=== PATIENT | female | born 1950 | race African-American/Black ===

== ENCOUNTER 2016-04-27 02:12 | Observation (INO) | payer OTHER ==
[2016-04-27 02:41] VITALS: BMI 32.2
--- NOTE | 2016-04-27 03:55 | PDOC ---
History of Present Illness - General History Source: Patient Exam Limitations: No Limitations - History of Present Illness Initial Comments: 04/27/16 04:33 The patient is a 65 year old female with significant past medical history of hypertension, hyperlipidemia, brain aneurysm that was clipped and resulted in cerebral hemorrhage (07/2015), CVA ( no residual weakness), pre diabetes, CVA ( no residual weakness, and glaucoma R- eye who presents to the ED with 1 day of nausea, vomiting, and headache. Patient reports she had a brain aneurysm that was clipped and resulted in cerebral hemorrhage (07/2015). Since then she has had headaches. However, she comes in today for persistent nausea and vomiting. She denies abdominal pain and diarrhea. The patient denies fever, chills, cough, SOB, chest pain, and palpitations. The patient denies dysuria, hematuria, urgency, and frequency. Allergies: NKDA Social History: No alcohol, tobacco, or drug use reported. Past Surgical History: L-shoulder reconstruction x3, Knee Replacement, Appendectomy, Hysterectomy, Cataract removal PCP: None <Ellie Galo - Last Filed: 04/27/16 06:26> - General History Source: Patient <LeónStephan rodriguez - Last Filed: 04/27/16 19:35> - General Chief Complaint: Vomiting/Diarrhea Stated Complaint: VOMITING Time Seen by Provider: 04/27/16 03:53 Past History <Ellie Galo - Last Filed: 04/27/16 06:26> - Past Medical History Cardiac Disorders: Yes (mitral valve regurgitation) CVA: Yes (NO RESIDUAL WEAKNESS.) Diabetes: Yes (pre diabetic) HTN: Yes Hypercholesterolemia: Yes Suicide Attempt (Hx): No - Surgical History Abdominal Surgery: Yes (exploratory lap?) Appendectomy: Yes Neurologic Surgery: Yes (brain annurysm) Orthopedic Surgery: Yes (L. Shoulder, R. Knee) - Immunization History Immunization Up to Date: Yes - Psycho/Social/Smoking Cessation Hx Anxiety: No Suicidal Ideation: No Smoking Status: No Smoking History: Never smoked Have you smoked in the past 12 months: No Number of Cigarettes Smoked Daily: 0 Cigars Per Day: 0 Hx Alcohol Use: No Drug/Substance Use Hx: No Substance Use Type: None Hx Substance Use Treatment: No <Stephan Encarnacion - Last Filed: 04/27/16 19:35> - Past Medical History Allergies/Adverse Reactions: Allergies Allergy/AdvReac Type Severity Reaction Status Date / Time No Known Allergies Allergy Verified 04/27/16 02:44 Home Medications: Ambulatory Orders Metoprolol Succinate [Toprol XL -] 50 mg PO DAILY #7 tab 09/02/12 Amlodipine Besylate 5 mg PO DAILY 03/16/16 Atorvastatin Ca [Lipitor] 10 mg PO HS 03/16/16 Amitriptyline HCl [Elavil -] 2 tab PO HS tablet 04/27/16 Dorzolamide HCl/Timolol Maleat [Cosopt Eye Drops] 10 ml OP BID 04/27/16 Review of Systems - Review of Systems Able to Perform ROS?: Yes Comments:: 04/27/16 04:34 CONSTITUTIONAL: Absent: fever, chills, diaphoresis, generalized weakness, malaise, loss of appetite HEENT: Absent: rhinorrhea, nasal congestion, throat pain, throat swelling, difficulty swallowing, mouth swelling, ear pain, eye pain, visual Changes CARDIOVASCULAR: Absent: chest pain, syncope, palpitations, irregular heart rate, lightheadedness , peripheral edema RESPIRATORY: Absent: cough, shortness of breath, dyspnea with exertion, orthopnea, wheezing, stridor, hemoptysis GASTROINTESTINAL: +nausea, vomiting Absent: abdominal pain, abdominal distension, diarrhea, constipation, melena, hematochezia GENITOURINARY: Absent: dysuria, frequency, urgency, hesitancy, hematuria, flank pain, genital pain MUSCULOSKELETAL: Absent: myalgia, arthralgia, joint swelling SKIN: Absent: rash, itching, pallor NEUROLOGIC: +headache Absent: focal weakness or paresthesias, dizziness, unsteady gait, seizure, mental status changes, bladder or bowel incontinence PSYCHIATRIC: Absent: anxiety, depression, suicidal or homicidal ideation, hallucinations. <Ellie Galo - Last Filed: 04/27/16 06:26> *Physical Exam - Vital Signs Last Vital Signs Temp Pulse Resp BP Pulse Ox 98.1 F 18 122/70 99 04/27/16 02:39 04/27/16 02:39 04/27/16 02:39 04/27/16 02:39 - Physical Exam Comments: 04/27/16 04:34 GENERAL: Well developed, well nourished. Awake and alert. Mild distress. HEENT: Normocephalic, atraumatic. PERRLA, EOMI. No conjunctival pallor. Sclera are non- icteric. Moist mucous membranes. Oropharynx is clear. NECK: Supple. Full ROM. No JVD. Carotid pulses 2+ and symmetric, without bruits. No thyromegaly. No lymphadenopathy. CARDIOVASCULAR: Regular rate and rhythm. No murmurs, rubs, or gallops. Distal pulses are 2+ and symmetric. PULMONARY: No evidence of respiratory distress. Lungs clear to auscultation bilaterally. No wheezing, rales or rhonchi. ABDOMINAL: Soft. Non-tender. Non-distended. No rebound or guarding. No organomegaly. Normoactive bowel sounds. MUSCULOSKELETAL Normal range of motion at all joints. No bony deformities or tenderness. No CVA tenderness. EXTREMITIES: No cyanosis. No clubbing. No edema. No calf tenderness. SKIN: Warm and dry. Normal capillary refill. No rashes. No jaundice. NEUROLOGICAL: Alert, awake, appropriate. Cranial nerves 2-12 intact. No deficits to light touch and temperature in face, upper extremities and lower extremities. No motor deficits in the in face, upper extremities and lower extremities. Normoreflexic in the upper and lower extremities. Normal speech. PSYCHIATRIC: Cooperative. Good eye contact. Appropriate mood and affect. <Ellie Galo - Last Filed: 04/27/16 06:26> - Vital Signs Last Vital Signs Temp Pulse Resp BP Pulse Ox 98.1 F 18 122/70 99 04/27/16 02:39 04/27/16 02:39 04/27/16 02:39 04/27/16 02:39 <Stephan Encarnacion - Last Filed: 04/27/16 19:35> Heart Score/ECG Review - ECG Impressions Comment:: 04/27/16 06:26 NSR @73bpm Normal ECG <Ellie Galo - Last Filed: 04/27/16 06:26> ED Treatment Course - LABORATORY CBC & Chemistry Diagram: 04/27/16 04:52 04/27/16 04:52 - RADIOLOGY Radiograph Interpretation: 04/27/16 05:08 EXAM: CT of the brain without contrast. Reviewed by Imaging translational specialist: There is no intra/extra-axial hemorrhage, vasogenic edema/focal mass effect, CT evidence of acute infarction, interval ventriculomegaly or gross change. Impression: no hemorrhage, gross acute infarct or change. <Ellie Galo - Last Filed: 04/27/16 06:26> - LABORATORY CBC & Chemistry Diagram: 04/27/16 04:52 04/27/16 04:52 <Stephan Encarnacion - Last Filed: 04/27/16 19:35> Medical Decision Making - Medical Decision Making 04/27/16 19:35 Dr. Encarnacion: The scribe's documentation has been prepared under my direction and personally reviewed by me in its entirery. I confirm that the note above accurately reflects all work, treatment, procedures, and medical decision making performed by me. <Stephan Encarnacion - Last Filed: 04/27/16 19:35> *DC/Admit/Observation/Transfer - Attestations Scribe Attestion: 04/27/16 04:34 Documentation prepared by Ellie Galo, acting as medical payment poster for Stephan Encarnacion MD <Ellie Galo - Last Filed: 04/27/16 06:26> - Discharge Dispostion Admit: No <Stephan Encarnacion - Last Filed: 04/27/16 19:35> Diagnosis at time of Disposition: Headache - Discharge Dispostion Condition at time of disposition: Improved
[2016-04-27] MEDS ORDERED: ONDANSETRON 4 MG/2 ML VIAL IVPUSH STA (03:56)
[2016-04-27] MEDS ORDERED: morphine CARPU-JECT 2 MG/1 ML DISP.SYRIN IVPUSH ONE (03:56)
[2016-04-27] MEDS ORDERED: morphine CARPU-JECT 4 MG/1 ML DISP.SYRIN ONE (04:55)
[2016-04-27] MEDS ORDERED: ONDANSETRON 4 MG/2 ML VIAL ONE (04:56)
[2016-04-27 05:14] LABS: BASOPHIL 0.2 % (0-2.0); EOSINOPHIL 0.6 % (0-4.5); MCH 28.4 pg (25.7-33.7); MCHC 31.8 g/dl (32.0-36.0); MEAN CELL VOLUME 89.2 fl (80-96); MEAN PLT VOLUME 10.6 fl (7.5-11.1); NEUTROPHILS 72.4 % (42.8-82.8); PLATELET COUNT 262 K/MM3 (134-434); WHITE BLOOD COUNT 5.4 K/mm3 (4.0-10.0)
[2016-04-27 05:28] LABS: INR 1.02 (0.82-1.09); PROTHROMBIN TIME (PATIENT) 11.2 SEC (9.98-11.88)
[2016-04-27 05:59] LABS: ANION GAP 10 (8-16); CO2 28 mmol/L (21-32); CREATININE 0.7 mg/dL (0.55-1.02); GLUCOSE,RANDOM 95 mg/dL (74-106)
[2016-04-27 06:00] LABS: ALBUMIN 3.8 g/dl (3.4-5.0); BILIRUBIN,TOTAL 0.7 mg/dL (0.2-1.0); CALCIUM 8.8 mg/dL (8.5-10.1); MAGNESIUM 2.6 mg/dL (1.8-2.4); SGOT/AST 31 U/L (15-37); TOT PROT 7.6 g/dl (6.4-8.2)
[2016-04-27 06:01] LABS: ALK PHOS 69 U/L (45-117); SGPT/ALT 26 U/L (12-78); TROPONIN I < 0.02 ng/ml (0.00-0.05)
--- NOTE | 2016-04-27 07:18 | PDOC ---
*Physical Exam - Vital Signs Last Vital Signs Temp Pulse Resp BP Pulse Ox 98.1 F 18 122/70 99 04/27/16 02:39 04/27/16 02:39 04/27/16 02:39 04/27/16 02:39 - Physical Exam Comments: 04/27/16 07:17 Sign-out received from outgoing Emergency Physician Pt interviewed and examined She states that her headache has completely resolved Ancillary studies reviewed I extensively discussed the risks and benefits of lumbar puncture to exclude a diagnosis of intracranial hemorrhage with a false negative CT with the patient. She understands that it is possible to have "a bleeding aneurysm" with "normal CAT scan" She understands that lumbar puncture has a much higher negative predictive value I explained this in lay terminology I answered all of her questions She refuses lumbar puncture She would be amenable to further neuro imaging, including CTA, MRI Will place on observation for further evaluation Will consult neurology Clinical impression: Headache Case discussed in detail with admitting provider including history, physical exam and ancillary studies. Admitting physician has assumed care for the patient, will follow all pending diagnostics and will complete the evaluation and treatment. 04/27/16 07:23 <Joshua Fernandes - Last Filed: 04/27/16 07:24> - Vital Signs Last Vital Signs Temp Pulse Resp BP Pulse Ox 98.2 F 72 16 128/58 98 04/27/16 08:13 04/27/16 08:13 04/27/16 08:13 04/27/16 08:13 04/27/16 08:13 <Raine Ulloa - Last Filed: 06/14/16 13:16> ED Treatment Course - LABORATORY CBC & Chemistry Diagram: 04/27/16 04:52 04/27/16 04:52 - ADDITIONAL ORDERS Additional order review: Laboratory Results 04/27/16 04/27/16 04:52 04:52 INR 1.02 Sodium 142 Potassium 4.6 Chloride 104 Carbon Dioxide 28 Anion Gap 10 BUN 11 Creatinine 0.7 Creat Clearance w eGFR > 60 Random Glucose 95 Calcium 8.8 Magnesium 2.6 H Total Bilirubin 0.7 D AST 31 D ALT 26 Alkaline Phosphatase 69 Creatine Kinase 256 H Troponin I < 0.02 B-Natriuretic Peptide 103.3 Total Protein 7.6 Albumin 3.8 04/27/16 04:52 RBC 4.46 MCV 89.2 MCHC 31.8 L RDW 14.0 MPV 10.6 Neutrophils % 72.4 D Lymphocytes % 17.8 D Monocytes % 9.0 Eosinophils % 0.6 Basophils % 0.2 - Medications Given in the ED: ED Medications Discontinued Medications Generic Name Dose Route Start Last Admin Trade Name Hugo PRN Reason Stop Dose Admin Morphine Sulfate 8 mg 04/27/16 03:56 04/27/16 05:02 Morphine Injection - IVPUSH 04/27/16 03:57 8 mg ONCE ONE Administration Ondansetron HCl 4 mg 04/27/16 03:56 04/27/16 05:02 Zofran Injection IVPUSH 04/27/16 03:57 4 mg ONCE STA Administration <Joshua Fernandes - Last Filed: 04/27/16 07:24> - LABORATORY CBC & Chemistry Diagram: 04/27/16 04:52 04/27/16 04:52 - ADDITIONAL ORDERS Additional order review: 04/27/16 04:52 RBC 4.46 MCV 89.2 MCHC 31.8 L RDW 14.0 MPV 10.6 Neutrophils % 72.4 D Lymphocytes % 17.8 D Monocytes % 9.0 Eosinophils % 0.6 Basophils % 0.2 - Medications Given in the ED: ED Medications Discontinued Medications Generic Name Dose Route Start Last Admin Trade Name Freq PRN Reason Stop Dose Admin Amlodipine Besylate 5 mg 04/27/16 10:00 04/27/16 10:30 Norvasc - PO 5 mg DAILY BERTRAM Administration Sodium Chloride 1,000 mls @ 100 mls/hr 04/27/16 09:45 04/27/16 10:30 1/2 Normal Saline IV 100 mls/hr ASDIR BERTRAM Administration Metoprolol Succinate 50 mg 04/27/16 10:00 04/27/16 10:30 Toprol Xl - PO 50 mg DAILY BERTRAM Administration Morphine Sulfate 8 mg 04/27/16 03:56 04/27/16 05:02 Morphine Injection - IVPUSH 04/27/16 03:57 8 mg ONCE ONE Administration Ondansetron HCl 4 mg 04/27/16 03:56 04/27/16 05:02 Zofran Injection IVPUSH 04/27/16 03:57 4 mg ONCE STA Administration <Raine Ulloa - Last Filed: 06/14/16 13:16> *DC/Admit/Observation/Transfer - Discharge Dispostion Admit: Yes <Joshua Fernandes - Last Filed: 04/27/16 07:24> <Raine Ulloa - Last Filed: 06/14/16 13:16> Diagnosis at time of Disposition: Headache - Discharge Dispostion Disposition: HOME Condition at time of disposition: Improved
[2016-04-27 08:15] VITALS: BP 128/58; PULSE 72; TEMP 98.2
--- NOTE | 2016-04-27 09:38 | HP ---
PCP: Kalee Caceres CHIEF COMPLAINT: Headache HISTORY OF PRESENT ILLNESS: This is a 65-year-old woman who presented to the ER this morning complaining of a headache. She is a poor historian. She says that she awoke overnight to use the bathroom. While sitting on the toilet, she became drowsy and nauseous. She vomited and developed a headache. The headache was bilateral and anterior. She denies having fever, chills, neck pain, photophobia, weakness, change in speech. In 07/2015, she presented to the ER here with a headache and was found to have a right frontal lobe hemorrhage. She was transferred to [facility]. She says she did not have surgery, however, previous notes mention evacuation of the hematoma and aneurysm clipping. She says she has been having frequent headaches but cannot describe them or whether this headache is similar to previous ones. She has been treated with morphine 8 mg IVP and Zofran 4 mg IVP. She says the headache has improved but she still feels nauseous. PAST MEDICAL HISTORY Hypertension Hyperlipidemia CVA Right frontal lobe and intraventricular hemorrhage Brain aneurysm Headaches Osteoarthritis PAST SURGICAL HISTORY Left shoulder replacement Right knee replacement Hysterectomy Glaucoma, right eye Allergies No Known Allergies Allergy (Verified 04/27/16 02:44) HOME MEDICATIONS 3 Medication Instructions Recorded Metoprolol Succinate [Toprol XL -] 50 mg PO DAILY #7 tab 09/02/12 Amlodipine Besylate 5 mg PO DAILY 03/16/16 Atorvastatin Ca [Lipitor] 10 mg PO HS 03/16/16 Amitriptyline HCl [Elavil -] 25 mg PO HS 04/27/16 Dorzolamide HCl/Timolol Maleat 10 ml OP BID 04/27/16 [Cosopt Eye Drops] Social History: Smoking: Never smoked Alcohol: Social Drugs: None Recent Travel: No Family History: Non-contributory REVIEW OF SYSTEMS CONSTITUTIONAL: Absent: fever, chills, diaphoresis, generalized weakness, malaise, loss of appetite, weight change HEENT: Absent: rhinorrhea, nasal congestion, throat pain, throat swelling, difficulty swallowing, mouth swelling, ear pain, eye pain, visual changes CARDIOVASCULAR: Absent: chest pain, syncope, palpitations, lightheadedness, peripheral edema RESPIRATORY: Absent: cough, shortness of breath, dyspnea with exertion, orthopnea, wheezing, stridor, hemoptysis GASTROINTESTINAL: Present: nausea, vomiting. Absent: abdominal pain, abdominal distension, diarrhea, constipation, melena, hematochezia GENITOURINARY: Absent: dysuria, frequency, urgency, hesitancy, hematuria, flank pain MUSCULOSKELETAL: Absent: myalgia, arthralgia, joint swelling, back pain, neck pain SKIN: Absent: rash, itching, pallor HEMATOLOGIC/IMMUNOLOGIC: Absent: easy bleeding, easy bruising, lymphadenopathy, frequent infections ENDOCRINE: Absent: unexplained weight gain, unexplained weight loss, heat intolerance, cold intolerance NEUROLOGIC: Present: headache. Absent: focal weakness, paresthesias, dizziness , unsteady gait, seizure, mental status changes, bladder or bowel incontinence PSYCHIATRIC: Absent: anxiety, depression, suicidal or homicidal ideation, hallucinations. PHYSICAL EXAMINATION Vital Signs Period Temp Pulse Resp BP Sys/Coronel Pulse Ox Last 24 Hr 98.1 F-98.2 F 72 16-18 122-128/58-70 98-99 GENERAL: Awake, alert, and fully oriented, in no acute distress. HEAD: Normal with no signs of trauma. EYES: Pupils equal, round and reactive to light, extraocular movements intact, sclerae anicteric, conjunctivae clear. EARS, NOSE, THROAT: Ears normal, nares patent, oropharynx clear without exudates. Moist mucous membranes. NECK: Normal range of motion, supple without lymphadenopathy, JVD, or masses. LUNGS: Breath sounds equal, clear to auscultation bilaterally. No wheezes, and no crackles. No accessory muscle use. HEART: Regular rate and rhythm, normal S1 and S2 without murmur, rub or gallop. ABDOMEN: Soft, nontender, not distended, normoactive bowel sounds, no guarding, no rebound, no masses. No hepatomegaly or splenomegaly. MUSCULOSKELETAL: Normal range of motion at all joints. No bony deformities or tenderness. No CVA tenderness. UPPER EXTREMITIES: 2+ pulses, warm, well-perfused. No cyanosis. No clubbing. Cap refill <2 seconds. No peripheral edema. LOWER EXTREMITIES: 2+ pulses, warm, well-perfused. No calf tenderness. No peripheral edema. NEUROLOGICAL: Cranial nerves II-XII intact. Normal speech. Gait not observed. PSYCHIATRIC: Cooperative. Good eye contact. Appropriate mood and affect. SKIN: Warm, dry, normal turgor, no rashes or lesions noted. Laboratory Tests 04/27/16 04/27/16 04/27/16 04:52 04:52 04:52 WBC 5.4 RBC 4.46 Hgb 12.7 Hct 39.8 MCV 89.2 MCHC 31.8 L RDW 14.0 Plt Count 262 MPV 10.6 Neutrophils % 72.4 D Lymphocytes % 17.8 D Monocytes % 9.0 Eosinophils % 0.6 Basophils % 0.2 INR 1.02 Sodium 142 Potassium 4.6 Chloride 104 Carbon Dioxide 28 Anion Gap 10 BUN 11 Creatinine 0.7 Creat Clearance w eGFR > 60 Random Glucose 95 Calcium 8.8 Magnesium 2.6 H Total Bilirubin 0.7 D AST 31 D ALT 26 Alkaline Phosphatase 69 Creatine Kinase 256 H CK-MB (CK-2) 1.749 Troponin I < 0.02 B-Natriuretic Peptide 103.3 Total Protein 7.6 Albumin 3.8 Chest x-ray: No acute process. Head CT: Right frontal lobe encephalomalacia, dilatation of frontal horn of right lateral ventricle, chronic white matter ischemic changes. No acute hemorrhage, acute infarct, mass, edema. No change from 03/16/16. EKG: Sinus rhythm, rate 73. No ischemic changes. ASSESSMENT/PLAN: This is a 65-year-old woman with a history of HTN, hyperlipidemia, CVA, brain aneurysm with intracranial hemorrhage, headaches and osteoarthritis who comes to the ER with a headache associated with nausea and vomiting. She has had improvement with morphine, but nausea persists. She is being placed in observation now for further evaluation and treatment of an emergent condition. 1. Headache - No evidence of acute bleeding and no change on head CT since 03/16 - Neurology consult - Discussed with Dr. Hoyt - will increase Elavil to 50 mg daily 2. Brain aneurysm with history of intracranial hemorrhage - Will obtain records from [facility] regarding what treatment she received there 3. Hypertension - Continue Norvasc, Toprol XL 4. Hyperlipidemia - Continue Lipitor 5. History of CVA Visit type - Emergency Visit Emergency Visit: Yes ED Registration Date: 04/27/16 Care time: The patient presented to the Emergency Department on the above date and was hospitalized for further evaluation of their emergent condition. - New Patient This patient is new to me today: Yes Date on this admission: 04/27/16 - Critical Care Critical Care patient: No
[2016-04-27] MEDS ORDERED: ONDANSETRON 4 MG/2 ML VIAL IVPB PRN (09:39)
[2016-04-27] MEDS ORDERED: ACETAMINOPHEN 325 MG TABLET (FP) PO PRN (09:39)
[2016-04-27] MEDS ORDERED: SODIUM CHLORIDE 0.45% 1,000 ML IV SCH (09:45)
[2016-04-27] MEDS ORDERED: PATIENT'S OWN MEDICATION (NON-FORMULARY) (Dorzolamide Hcl/Timolol Maleat [Cosopt Eye Drops OP SCH (10:00)
[2016-04-27] MEDS ORDERED: amLODIPine BESYLATE 5 MG TABLET (FP) PO SCH (10:00)
[2016-04-27] MEDS ORDERED: METOPROLOL SUCCINATE 50 MG TAB.SR.24H (FP) PO SCH (10:00)
[2016-04-27] MEDS ORDERED: amLODIPine BESYLATE 5 MG TABLET (FP) ONE (11:06)
[2016-04-27] MEDS ORDERED: METOPROLOL SUCCINATE 50 MG TAB.SR.24H (FP) ONE (11:06)
--- NOTE | 2016-04-27 11:20 | EKG ---
Test Reason : Blood Pressure : / mmHG Vent. Rate : 073 BPM Atrial Rate : 073 BPM P-R Int : 196 ms QRS Dur : 090 ms QT Int : 418 ms P-R-T Axes : 022 056 045 degrees QTc Int : 460 ms NORMAL SINUS RHYTHM NORMAL ECG WHEN COMPARED WITH ECG OF 16-MAR-2016 03:53, NO SIGNIFICANT CHANGE WAS FOUND Confirmed by JUAN CARLOS SOTO MD ([id number]) on 04/27/2016 11:19:31 AM Referred By: Confirmed By:JUAN CARLOS SOTO MD
--- NOTE | 2016-04-27 11:33 | CONSULT ---
Consult - text type - Consultation Consultation Note: Neurology The patient is a 65 year old female with significant past medical history of hypertension, hyperlipidemia, brain aneurysm that was clipped and resulted in cerebral hemorrhage (07/2015), CVA ( no residual weakness), pre diabetes, CVA ( no residual weakness, and glaucoma R- eye who presents to the ED with 1 day of nausea, vomiting, and headache. Patient reports she had a brain aneurysm that was clipped and resulted in cerebral hemorrhage (07/2015). Since then she has had headaches. However, she comes in today for persistent nausea and vomiting. She denies abdominal pain and diarrhea. CT head complted and no acute changes noted. She reports her headaches are improved but with persistent nausea. Spoke to hospitalist and she is on Amitryptiline 25mg and we discussed increasing this to 50mg daily. Also, will give Zofran for symptoms. The patient denies fever, chills, cough, SOB, chest pain, and palpitations. The patient denies dysuria, hematuria, urgency, and frequency. Allergies: NKDA Social History: No alcohol, tobacco, or drug use reported. Past Surgical History: L-shoulder reconstruction x3, Knee Replacement, Appendectomy, Hysterectomy, Cataract removal PCP: None Past History - Past Medical History Cardiac Disorders: Yes (mitral valve regurgitation) CVA: Yes (NO RESIDUAL WEAKNESS.) Diabetes: Yes (pre diabetic) HTN: Yes Hypercholesterolemia: Yes Suicide Attempt (Hx): No - Surgical History Abdominal Surgery: Yes (exploratory lap?) Appendectomy: Yes Neurologic Surgery: Yes (brain annurysm) Orthopedic Surgery: Yes (L. Shoulder, R. Knee) - Immunization History Immunization Up to Date: Yes - Psycho/Social/Smoking Cessation Hx Anxiety: No Suicidal Ideation: No Smoking Status: No Smoking History: Never smoked Have you smoked in the past 12 months: No Number of Cigarettes Smoked Daily: 0 Cigars Per Day: 0 Hx Alcohol Use: No Drug/Substance Use Hx: No Substance Use Type: None Hx Substance Use Treatment: No - Past Medical History Allergies/Adverse Reactions: Allergies Allergy/AdvReac Type Severity Reaction Status Date / Time No Known Allergies Allergy Verified 04/27/16 02:44 Home Medications: Ambulatory Orders Metoprolol Succinate [Toprol XL -] 50 mg PO DAILY #7 tab 09/02/12 Amlodipine Besylate 5 mg PO DAILY 12/01/16 Atorvastatin Ca [Lipitor] 10 mg PO HS 03/16/16 Amitriptyline HCl [Elavil -] 25 mg PO HS 04/27/16 Dorzolamide HCl/Timolol Maleat [Cosopt Eye Drops] 10 ml OP BID 04/27/16 Review of Systems Absent: fever, chills, diaphoresis, generalized weakness, malaise, loss of appetite HEENT: Absent: rhinorrhea, nasal congestion, throat pain, throat swelling, difficulty swallowing, mouth swelling, ear pain, eye pain, visual Changes CARDIOVASCULAR: Absent: chest pain, syncope, palpitations, irregular heart rate, lightheadedness , peripheral edema RESPIRATORY: Absent: cough, shortness of breath, dyspnea with exertion, orthopnea, wheezing, stridor, hemoptysis GASTROINTESTINAL: +nausea, vomiting Absent: abdominal pain, abdominal distension, diarrhea, constipation, melena, hematochezia GENITOURINARY: Absent: dysuria, frequency, urgency, hesitancy, hematuria, flank pain, genital pain MUSCULOSKELETAL: Absent: myalgia, arthralgia, joint swelling SKIN: Absent: rash, itching, pallor NEUROLOGIC: +headache Absent: focal weakness or paresthesias, dizziness, unsteady gait, seizure, mental status changes, bladder or bowel incontinence PSYCHIATRIC: Absent: anxiety, depression, suicidal or homicidal ideation, hallucinations. *Physical Exam Last Vital Signs Temp Pulse Resp BP Pulse Ox 98.1 F 18 122/70 99 04/27/16 02:39 04/27/16 02:39 04/27/16 02:39 04/27/16 02:39 Well developed, well nourished. Awake and alert. Mild distress. HEENT: Normocephalic, atraumatic. PERRLA, EOMI. No conjunctival pallor. Sclera are non- icteric. Moist mucous membranes. Oropharynx is clear. NECK: Supple. Full ROM. No JVD. Carotid pulses 2+ and symmetric, without bruits. No thyromegaly. No lymphadenopathy. CARDIOVASCULAR: Regular rate and rhythm. No murmurs, rubs, or gallops. Distal pulses are 2+ and symmetric. PULMONARY: No evidence of respiratory distress. Lungs clear to auscultation bilaterally. No wheezing, rales or rhonchi. ABDOMINAL: Soft. Non-tender. Non-distended. No rebound or guarding. No organomegaly. Normoactive bowel sounds. MUSCULOSKELETAL Normal range of motion at all joints. No bony deformities or tenderness. No CVA tenderness. EXTREMITIES: No cyanosis. No clubbing. No edema. No calf tenderness. SKIN: Warm and dry. Normal capillary refill. No rashes. No jaundice. NEUROLOGICAL: Alert, awake, appropriate. Cranial nerves 2-12 intact. No deficits to light touch and temperature in face, upper extremities and lower extremities. No motor deficits in the in face, upper extremities and lower extremities. Normoreflexic in the upper and lower extremities. Normal speech. PSYCHIATRIC: Cooperative. Good eye contact. Appropriate mood and affect. - RADIOLOGY Radiograph Interpretation: EXAM: CT of the brain without contrast. Reviewed by Imaging document controller: There is no intra/extra-axial hemorrhage, vasogenic edema/focal mass effect, CT evidence of acute infarction, interval ventriculomegaly or gross change. Impression: no hemorrhage, gross acute infarct or change. CBCD WBC 5.4 K/mm3 (4.0-10.0) 04/27/16 04:52 RBC 4.46 M/mm3 (3.60-5.2) 04/27/16 04:52 Hgb 12.7 GM/dL (10.7-15.3) 04/27/16 04:52 Hct 39.8 % (32.4-45.2) 04/27/16 04:52 MCV 89.2 fl (80-96) 04/27/16 04:52 MCHC 31.8 g/dl (32.0-36.0) L 04/27/16 04:52 RDW 14.0 % (11.6-15.6) 04/27/16 04:52 Plt Count 262 K/MM3 (134-434) 04/27/16 04:52 MPV 10.6 fl (7.5-11.1) 04/27/16 04:52 CMP Sodium 142 mmol/L (136-145) 04/27/16 04:52 Potassium 4.6 mmol/L (3.5-5.1) 04/27/16 04:52 Chloride 104 mmol/L (98-107) 04/27/16 04:52 Carbon Dioxide 28 mmol/L (21-32) 04/27/16 04:52 Anion Gap 10 (8-16) 04/27/16 04:52 BUN 11 mg/dL (7-18) 04/27/16 04:52 Creatinine 0.7 mg/dL (0.55-1.02) 04/27/16 04:52 Creat Clearance w eGFR > 60 (>60) 04/27/16 04:52 Calcium 8.8 mg/dL (8.5-10.1) 04/27/16 04:52 Total Bilirubin 0.7 mg/dL (0.2-1.0) D 04/27/16 04:52 AST 31 U/L (15-37) D 04/27/16 04:52 ALT 26 U/L (12-78) 04/27/16 04:52 Alkaline Phosphatase 69 U/L (45-117) 04/27/16 04:52 Total Protein 7.6 g/dl (6.4-8.2) 04/27/16 04:52 Albumin 3.8 g/dl (3.4-5.0) 04/27/16 04:52 Plan; 65 year old female with significant past medical history of hypertension, hyperlipidemia, brain aneurysm that was clipped and resulted in cerebral hemorrhage (07/2015), CVA ( no residual weakness), pre diabetes, CVA (no residual weakness, and glaucoma R- eye who presents to the ED with 1 day of nausea, vomiting, and headache. CT head complted and no acute changes noted. She reports her headaches are improved but with persistent nausea. Spoke to hospitalist and she is on Amitryptiline 25mg and we discussed increasing this to 50mg daily. Also, will give Zofran for symptoms If does not improve, would consider MRI/MRA brain with and without given her history but presentation seems to be more consistent with a complicated migraine Continue blood pressure control, continue anti-HTN Lipitor for HLD can be continued No new focal deficits Increased hydration, PO intake
--- NOTE | 2016-04-27 14:13 | DS ---
Physical Exam: SUBJECTIVE: Patient seen and examined. She is feeling better and has been able to eat. OBJECTIVE: Vital Signs Period Temp Pulse Resp BP Sys/Coronel Pulse Ox Last 24 Hr 98.2 F 72 16 128/58 98 PHYSICAL EXAM GENERAL: The patient is awake, alert, and fully oriented, in no acute distress. HEAD: Normal with no signs of trauma. EYES: PERRL, extraocular movements intact, sclera anicteric, conjunctiva clear. ENT: Ears normal, nares patent, oropharynx clear without exudates, moist mucous membranes. NECK: Trachea midline, full range of motion, supple. LUNGS: Breath sounds equal, clear to auscultation bilaterally, no wheezes, no crackles, no accessory muscle use. HEART: Regular rate and rhythm, S1, S2 without murmur, rub or gallop. ABDOMEN: Soft, nontender, nondistended, normoactive bowel sounds, no guarding, no rebound, no hepatosplenomegaly, no masses. EXTREMITIES: 2+ pulses, warm, well-perfused, no edema. NEUROLOGICAL: Cranial nerves II through XII grossly intact. Normal speech, gait not observed. PSYCH: Normal mood, normal affect. SKIN: Warm, dry, normal turgor, no rashes or lesions noted. HOSPITAL COURSE: Date of Admission:04/27/16 Date of Discharge: 04/27/16 Minutes to complete discharge: 30 Discharge Summary Reason For Visit: HEADACHE Current Active Problems Headache (Acute) CVA (cerebrovascular accident due to intracerebral hemorrhage) (Chronic) Glaucoma (Chronic) HLD (hyperlipidemia) (Chronic) HTN (hypertension) (Chronic) Intracranial hemorrhage (Chronic) Hospital Course: This is a 65-year-old woman who presented to the ER this morning complaining of a headache. She said that she awoke overnight to use the bathroom and while sitting on the toilet, became drowsy and nauseous. She vomited and developed a bilateral anterior headache. She denied having fever, chills, neck pain, photophobia, weakness, change in speech. She had a history of a right frontal lobe hemorrhage in 07/2015 for which she was transferred to [facility]. Since then, she had been having frequent headaches. In the ER, she was treated with morphine 8 mg IVP and Zofran [address] showed right frontal lobe encephalomalacia but no acute process and no change from a head CT in 03/2016. The headache improved but nausea persisted. She was therefore placed in observation. She was treated with IV fluid and Zofran as needed. She was seen by Dr. Hoyt who felt she was suffering from a complicated migraine and recommended increasing Elavil from 25 mg to 50 mg daily. Nausea improved and she was able to tolerate a diet. She is being discharged home on April 27, 2016. Condition: Improved - Instructions Diet, Activity, Other Instructions: You may resume your usual diet and activity. Please call Dr. Gates's office to schedule a follow-up appointment within one week. Referrals: Kalee Caceres MD [Primary Care Provider] - 1 Week Kameron Hoyt MD [Staff Physician] - 1 Week Disposition: HOME - Home Medications Comprehensive Discharge Medication List: Ambulatory Orders Metoprolol Succinate [Toprol XL -] 50 mg PO DAILY #7 tab 09/02/12 Amlodipine Besylate 5 mg PO DAILY 03/16/16 Atorvastatin Ca [Lipitor] 10 mg PO HS 03/16/16 Amitriptyline HCl [Elavil -] 2 tab PO HS tablet 04/27/16 Dorzolamide HCl/Timolol Maleat [Cosopt Eye Drops] 10 ml OP BID 04/27/16 This patient is new to me today: Yes Date on this admission: 04/27/16 Emergency Visit: Yes ED Registration Date: 04/27/16 Care time: The patient presented to the Emergency Department on the above date and was hospitalized for further evaluation of their emergent condition. Critical Care patient: No - Discharge Referral Referred to [facility] Med P.C.: No
[2016-04-27] MEDS ORDERED: AMITRIPTYLINE HCL 25 MG TABLET (FP) PO SCH (22:00)
[2016-04-27] MEDS ORDERED: ATORVASTATIN CA 10 MG TABLET (FP) PO SCH (22:00)
== END 2016-04-27 14:27 | disposition home or self-care (01) ==
LOC: JER 02:12 → JERBED 07:29
PROVIDERS: ADMIT Internal Medicine; ATTEND Internal Medicine
DX: R51 Headache (principal); I10 Essential (primary) hypertension; H40.89 Other specified glaucoma; R11.2 Nausea with vomiting, unspecified; I34.0 Nonrheumatic mitral (valve) insufficiency; R73.03 Prediabetes; E78.4 Other hyperlipidemia; Z86.73 Personal history of transient ischemic attack (TIA), and cerebral infarction without residual deficits; Z96.651 Presence of right artificial knee joint
CPT/HCPCS: 36415; 70450-TC; 71010-TC; 80053; 82550; 82553; 83735; 83880; 84484; 85025; 85610; 93005; 93010; 99283-25; G0378

== ENCOUNTER 2016-07-04 23:31 | Emergency (ER) | payer OTHER ==
[2016-07-04 23:59] VITALS: BP 150/72; PULSE 84; TEMP 98.4; BMI 29.2
--- NOTE | 2016-07-05 00:46 | PDOC ---
History of Present Illness - General Chief Complaint: Cold Symptoms Stated Complaint: RESPIRATORY Time Seen by Provider: 07/04/16 23:57 - History of Present Illness Initial Comments: 07/05/16 00:46 CHIEF COMPLAINT: vomiting, cold symptoms HISTORY OF PRESENT ILLNESS: 65 yo F with hx of brain aneurysm, hypertension, and hyperlipidemia presents to ED with vomiting, body aches, and URI symptoms since yesterday. Patient states she just returned from a trip to [place] yesterday, and on the plane there was "someone sneezing a lot." She states she has had 5-6 episodes of vomiting as well as chills and sweats, runny nose, sneezing, and coughing. PAST MEDICAL HISTORY: as per HPI FAMILY HISTORY: Denies SOCIAL HISTORY: Denies tobacco, alcohol, illicit drug use. SURGICAL HISTORY: bilateral knee replacements, L shoulder replacement, appendectomy, hysterectomy ALLERGIES: No known drug allergies REVIEW OF SYSTEMS General/Constitutional: Chills, subjective fever. HEENT: Denies change in vision. Denies ear pain or discharge. Cardiovascular: Denies chest pain or shortness of breath. Respiratory: Cough, denies hemoptysis. Gastrointestinal: Vomiting since yesterday. Denies diarrhea or constipation. Genitourinary: Denies dysuria, frequency, or change in urination. Musculoskeletal: Body aches. Skin and breasts: Denies rash or easy bruising. Neurologic: Denies headache, vertigo, loss of consciousness, or loss of sensation. PHYSICAL EXAM General Appearance: Well-appearing, appropriately dressed. No apparent distress , no intoxication. HEENT: Congestion, rhinorrhea. EOMI, PERRLA, normal voice. No conjunctival pallor. No photophobia, scleral icterus. Respiratory/Chest: Lungs CTAB. Cardiovascular: RRR. S1, S2. Gastrointestinal/Abdominal: Normal bowel sounds. Abdomen soft, non-distended. No tenderness or rebound tenderness. No organomegaly, pulsatile mass, guarding , hernia, hepatomegaly, splenomegaly. Musculoskeletal/Extremities: Normal inspection. FROM of all extremities, normal capillary refill. Pelvis Stable. No CVA tenderness. No tenderness to extremities, pedal edema, swelling, erythema or deformity. Integumentary: Appropriate color, dry, warm. No cyanosis, erythema, jaundice or rash Neurologic: sheet cutter II-XII intact. Fully oriented, alert. Appropriate mood/affect. Motor strength 5/5. No appreciable EOM palsy, facial droop or sensory deficit. Past History - Past Medical History Allergies/Adverse Reactions: Allergies Allergy/AdvReac Type Severity Reaction Status Date / Time No Known Allergies Allergy Verified 04/27/16 02:44 Home Medications: Ambulatory Orders Metoprolol Succinate [Toprol XL -] 50 mg PO DAILY #7 tab 09/02/12 Amlodipine Besylate 5 mg PO DAILY 03/16/16 Atorvastatin Ca [Lipitor] 10 mg PO HS 03/16/16 Dorzolamide HCl/Timolol Maleat [Cosopt Eye Drops] 10 ml OP BID 04/27/16 Oseltamivir Phosphate [Tamiflu] 75 mg PO BID #10 capsule 07/05/16 Cardiac Disorders: Yes (mitral valve regurgitation) CVA: Yes (NO RESIDUAL WEAKNESS.) Diabetes: Yes (pre diabetic) HTN: Yes Hypercholesterolemia: Yes Suicide Attempt (Hx): No - Surgical History Abdominal Surgery: Yes (exploratory lap?) Appendectomy: Yes Neurologic Surgery: Yes (brain annurysm) Orthopedic Surgery: Yes (L. Shoulder, R. Knee) - Immunization History Immunization Up to Date: Yes - Psycho/Social/Smoking Cessation Hx Anxiety: No Suicidal Ideation: No Smoking Status: No Smoking History: Never smoked Have you smoked in the past 12 months: No Number of Cigarettes Smoked Daily: 0 Cigars Per Day: 0 Information on smoking cessation initiated: No Hx Alcohol Use: No Drug/Substance Use Hx: No Substance Use Type: None Hx Substance Use Treatment: No *Physical Exam - Vital Signs Last Vital Signs Temp Pulse Resp BP Pulse Ox 98.4 F 84 20 150/72 99 07/04/16 23:44 07/04/16 23:44 07/04/16 23:44 07/04/16 23:44 07/04/16 23:44 ED Treatment Course - RADIOLOGY Radiology Studies Ordered: Category Date Time Status CHEST PA & LAT [RAD] Stat Radiology 07/05/16 00:07 Ordered Medical Decision Making - Medical Decision Making 07/05/16 00:56 65 yo F with hx of brain aneurysm, hypertension, and hyperlipidemia presents to ED with vomiting, body aches, and URI symptoms since yesterday. -Influenza rapid swab Patient is positive for influenza A and B. -Tamiflu 75 mg bid x 5 days, script sent to pharm Advised patient to take medication as prescribed and f/u with primary care doctor. Advised patient of signs and symptoms for return to ER; patient verbalized understanding and agrees to plan. *DC/Admit/Observation/Transfer Diagnosis at time of Disposition: Influenza A, Influenza B - Discharge Dispostion Disposition: HOME Condition at time of disposition: Stable Admit: No - Prescriptions Prescriptions: Oseltamivir Phosphate [Tamiflu] 75 mg PO BID #10 capsule - Referrals Referrals: Kalee Caceres MD [Primary Care Provider] - - Patient Instructions Printed Discharge Instructions: DI for Influenza -- Adult Additional Instructions: Please take medication as prescribed and follow up with Dr. Caceres by the end of the week. If you experience any fever unrelieved by Motrin, sudden onset headache, difficulty breathing, change in mental status, chest pain, weakness, or any new or worsening symptoms, please return to the ER.
[2016-07-05] MEDS ORDERED: OSELTAMIVIR PHOSPHATE 75 MG CAPSULE PO ONE (01:41)
[2016-07-05] MEDS ORDERED: OSELTAMIVIR PHOSPHATE 75 MG CAPSULE ONE (01:42)
--- NOTE | 2016-07-05 12:46 | EKG ---
Test Reason : Blood Pressure : / mmHG Vent. Rate : 069 BPM Atrial Rate : 069 BPM P-R Int : 208 ms QRS Dur : 090 ms QT Int : 398 ms P-R-T Axes : 029 049 046 degrees QTc Int : 426 ms NORMAL SINUS RHYTHM NONSPECIFIC T WAVE ABNORMALITY ABNORMAL ECG WHEN COMPARED WITH ECG OF 27-APR-2016 04:43, NONSPECIFIC T WAVE ABNORMALITY NOW EVIDENT IN LATERAL LEADS Confirmed by GATITO AGGARWAL, NAYELI ([id number]) on 07/05/2016 12:45:53 PM Referred By: Confirmed By:NAYELI MEDEROS MD
== END 2016-07-05 01:47 | disposition home or self-care (01) ==
LOC: JER 23:31
DX: J09.X2 Influenza due to identified novel influenza A virus with other respiratory manifestations (principal); J10.1 Influenza due to other identified influenza virus with other respiratory manifestations; I10 Essential (primary) hypertension; R73.03 Prediabetes; E78.00 Pure hypercholesterolemia, unspecified; I34.0 Nonrheumatic mitral (valve) insufficiency; Z86.73 Personal history of transient ischemic attack (TIA), and cerebral infarction without residual deficits
CPT/HCPCS: 71020-TC; 87254; 87804; 93005; 93010; 99282-25

== ENCOUNTER 2016-07-16 02:48 | Observation (INO) | payer OTHER ==
--- NOTE | 2016-07-16 02:55 | PDOC ---
History of Present Illness - General History Source: Patient Exam Limitations: No Limitations - History of Present Illness Initial Comments: 07/16/16 03:12 The patient is a 65 year old female with a significant past medical history of brain aneurysm, mitral valve regurgitation, hypertension, and hyperlipidemia, who presents to the ED via EMS for Altered Mental Status. EMS reports that the son found her in the bathroom on the floor. He states that the same situation has occurred 4-5 times in the past couple of months. He states that it happens at the same time, and always when she is on the toilet. She only complains of a headache upon interview. <Gilmar Romero - Last Filed: 07/16/16 03:12> <Kayla Clemens - Last Filed: 07/16/16 07:03> - General Stated Complaint: ALTERED MENTAL STATUS Time Seen by Provider: 07/16/16 02:55 Past History <Gilmar Romero - Last Filed: 07/16/16 03:12> - Past Medical History Cardiac Disorders: Yes (mitral valve regurgitation) CVA: Yes (NO RESIDUAL WEAKNESS.) Diabetes: Yes (pre diabetic) HTN: Yes Hypercholesterolemia: Yes Suicide Attempt (Hx): No - Surgical History Abdominal Surgery: Yes (exploratory lap?) Appendectomy: Yes Neurologic Surgery: Yes (brain annurysm) Orthopedic Surgery: Yes (L. Shoulder, R. Knee) - Immunization History Immunization Up to Date: Yes - Psycho/Social/Smoking Cessation Hx Anxiety: No Suicidal Ideation: No Smoking Status: No Smoking History: Never smoked Have you smoked in the past 12 months: No Number of Cigarettes Smoked Daily: 0 Cigars Per Day: 0 Hx Alcohol Use: No Drug/Substance Use Hx: No Substance Use Type: None Hx Substance Use Treatment: No <Kayla Clemens - Last Filed: 07/16/16 07:03> - Past Medical History Allergies/Adverse Reactions: Allergies Allergy/AdvReac Type Severity Reaction Status Date / Time No Known Allergies Allergy Verified 07/16/16 02:57 Home Medications: Ambulatory Orders NK [No Known Home Medication] 07/16/16 Review of Systems - Review of Systems Able to Perform ROS?: Yes Comments:: 07/16/16 03:13 GENERAL/CONSTITUTIONAL: No fever or chills. No weakness. HEAD, EYES, EARS, NOSE AND THROAT: No change in vision. No ear pain or discharge. No sore throat. CARDIOVASCULAR: No chest pain or shortness of breath. RESPIRATORY: No cough, wheezing, or hemoptysis. GASTROINTESTINAL: No nausea, vomiting, diarrhea or constipation. GENITOURINARY: No dysuria, frequency, or change in urination. MUSCULOSKELETAL: No joint or muscle swelling or pain. No neck or back pain. SKIN: No rash NEUROLOGIC: + headache. No vertigo, loss of consciousness, or change in strength/sensation. ENDOCRINE: No increased thirst. No abnormal weight change. HEMATOLOGIC/LYMPHATIC: No anemia, easy bleeding, or history of blood clots. ALLERGIC/IMMUNOLOGIC: No hives or skin allergy. <Gilmar Romero - Last Filed: 07/16/16 03:12> *Physical Exam - Vital Signs Last Vital Signs Temp Pulse Resp BP Pulse Ox 97.1 F L 60 18 145/101 100 07/16/16 03:04 07/16/16 03:04 07/16/16 03:04 07/16/16 03:04 07/16/16 03:04 - Physical Exam Comments: 07/16/16 03:13 GENERAL: Awake, alert, and fully oriented, in no acute distress HEAD: No signs of trauma EYES: PERRLA, EOMI, sclera anicteric, conjunctiva clear ENT: Auricles normal inspection, hearing grossly normal, nares patent, oropharynx clear without exudates. Moist mucosa NECK: Normal ROM, supple, no lymphadenopathy, JVD, or masses LUNGS: Breath sounds equal, clear to auscultation bilaterally. No wheezes, and no crackles HEART: Regular rate and rhythm, normal S1 and S2, no murmurs, rubs or gallops ABDOMEN: Soft, nontender, normoactive bowel sounds. No guarding, no rebound. No masses EXTREMITIES: Normal range of motion, no edema. No clubbing or cyanosis. No cords, erythema, or tenderness NEUROLOGICAL: Cranial nerves II through XII grossly intact. Normal speech, normal gait SKIN: Warm, Dry, normal turgor, no rashes or lesions noted. <Gilmar Romero - Last Filed: 07/16/16 03:12> ED Treatment Course - LABORATORY CBC & Chemistry Diagram: 07/16/16 03:20 07/16/16 03:20 <Kayla Clemens - Last Filed: 07/16/16 07:03> Medical Decision Making - Medical Decision Making 07/16/16 06:57 Pt comes with syncope on the toilet. SHe has had multiple episodes like this in the past, as per her son, who always hears his mo when she falls in the bathroom in the middle of the nigt. Pt has multiple head CTs done and Brain MRIs done in our institution. She will be admitted to the hospitalist, as she is a pt of Dr. Mitchell. She will require neuro and psych evaluation. She is refusing XRAY and CT scan, as she has veen exposed to so much radiation recently. SHe is A+Ox3 and she has insight into her illness and understanding of her previous stroke. Labs are normal. EKst degree AV block. CXR/head CT: pt refused. <Kayla Clemens - Last Filed: 07/16/16 07:03> *DC/Admit/Observation/Transfer - Attestations Scribe Attestion: 07/16/16 03:14 Documentation prepared by Gilmar Romero, acting as medical apparatus model maker for Kayla Clemens MD. <Gilmar Romero - Last Filed: 07/16/16 03:12> - Discharge Dispostion Admit: Yes <Kayla Clemens - Last Filed: 07/16/16 07:03> Diagnosis at time of Disposition: Syncope
--- NOTE | 2016-07-16 03:13 | PDOC ---
NIH Stroke Scale - Last Known Well Date/Time & Onset Date Last Known Well: 07/15/16 Time Last Known Well: 23:00 - Initial Evaluation Level of consciousness: Alert Ask patient the month and their age: Answers both correctly Ask patient to open & close eyes; make fist and let go: Obeys both correctly Best gaze (horizontal eye movement): Normal Visual field testing: No visual field loss Facial paresis (Show teeth/raise eyebrows/close eyes tight): Normal symmetrical movement Motor Function: Left Arm: Normal Motor Function: Right Arm: Normal (extends arm 90 (or 45) degrees for 10 seconds without drift Motor Function: Left Leg: Normal (extends leg 30 degrees for 5 seconds without drift) Motor Function: Right Leg: Normal (extends leg 30 degrees for 5 seconds without drift) Limb Ataxia: No ataxia Sensory(Use pinprick test arms,legs,trunk,face/side to side): Normal Best language (Describe picture, name items, read sentences): No Aphasia Dysarthria (read several words): Normal articulation Extinction and Inattention: No abnormality - Total Score NIH Stroke Scale Score: 0
[2016-07-16 03:32] LABS: BASOPHIL 0.5 % (0-2.0); EOSINOPHIL 1.1 % (0-4.5); MCHC 32.8 g/dl (32.0-36.0); MEAN CELL VOLUME 88.6 fl (80-96); MEAN PLT VOLUME 9.7 fl (7.5-11.1); NEUTROPHILS 54.4 % (42.8-82.8); PLATELET COUNT 296 K/MM3 (134-434); RDW 13.2 % (11.6-15.6); WHITE BLOOD COUNT 7.5 K/mm3 (4.0-10.0)
[2016-07-16 03:53] LABS: INR 1.08 (0.82-1.09); PROTHROMBIN TIME (PATIENT) 11.9 SEC (9.98-11.88)
[2016-07-16 04:01] LABS: ALBUMIN 3.5 g/dl (3.4-5.0); ANION GAP 10 (8-16); BILIRUBIN,TOTAL 0.3 mg/dL (0.2-1.0); CALCIUM 8.3 mg/dL (8.5-10.1); CO2 26 mmol/L (21-32); CREATININE 0.9 mg/dL (0.55-1.02); GLUCOSE,RANDOM 98 mg/dL (74-106); SGOT/AST 23 U/L (15-37); SGPT/ALT 33 U/L (12-78); TOT PROT 7.6 g/dl (6.4-8.2)
[2016-07-16 04:04] LABS: ALK PHOS 66 U/L (45-117); TROPONIN I < 0.02 ng/ml (0.00-0.05)
--- NOTE | 2016-07-16 11:02 | HP ---
CHIEF COMPLAINT:syncope PCP: Dr. Caceres HISTORY OF PRESENT ILLNESS: this 65 yr old female had a syncopal episode while using the toilet during the night. Her family called 911 and pt presented to ER. During the ER evaluation, pt was noted to have some AMS changes. Head CT completed without any bleed or occlusion noted. She has a significant hx of a "left sided brain aneurysm" and is followed closely with a [facility] in [facility] ER course was notable for: (1) s/p syncope (2) AMS Recent Travel: PAST MEDICAL HISTORY: mitral valve regurg, HLD, HTN, L. Brain Aneurysm PAST SURGICAL HISTORY: Social History: Smoking:denies Alcohol:denies Drugs: denies Family History: Allergies NKA CBCD WBC 7.5 K/mm3 (4.0-10.0) D 07/16/16 03:20 RBC 4.09 M/mm3 (3.60-5.2) 07/16/16 03:20 Hgb 11.9 GM/dL (10.7-15.3) 07/16/16 03:20 Hct 36.2 % (32.4-45.2) 07/16/16 03:20 MCV 88.6 fl (80-96) 07/16/16 03:20 MCHC 32.8 g/dl (32.0-36.0) 07/16/16 03:20 RDW 13.2 % (11.6-15.6) 07/16/16 03:20 Plt Count 296 K/MM3 (134-434) 07/16/16 03:20 MPV 9.7 fl (7.5-11.1) 07/16/16 03:20 CMP Sodium 142 mmol/L (136-145) 07/16/16 03:20 Potassium 3.8 mmol/L (3.5-5.1) 07/16/16 03:20 Chloride 106 mmol/L (98-107) 07/16/16 03:20 Carbon Dioxide 26 mmol/L (21-32) 07/16/16 03:20 Anion Gap 10 (8-16) 07/16/16 03:20 BUN 15 mg/dL (7-18) D 07/16/16 03:20 Creatinine 0.9 mg/dL (0.55-1.02) D 07/16/16 03:20 Creat Clearance w eGFR > 60 (>60) 07/16/16 03:20 Random Glucose 98 mg/dL (74-106) 07/16/16 03:20 Calcium 8.3 mg/dL (8.5-10.1) L 07/16/16 03:20 Total Bilirubin 0.3 mg/dL (0.2-1.0) D 07/16/16 03:20 AST 23 U/L (15-37) D 07/16/16 03:20 ALT 33 U/L (12-78) D 07/16/16 03:20 Alkaline Phosphatase 66 U/L (45-117) 07/16/16 03:20 Total Protein 7.6 g/dl (6.4-8.2) 07/16/16 03:20 Albumin 3.5 g/dl (3.4-5.0) 07/16/16 03:20 CARDIAC ENZYMES Creatine Kinase 351 IU/L (26-192) H D 07/16/16 03:20 Troponin I < 0.02 ng/ml (0.00-0.05) 07/16/16 03:20 Laboratory Tests 07/16/16 07/16/16 07/16/16 03:20 03:20 03:20 WBC 7.5 D RBC 4.09 Hgb 11.9 Hct 36.2 MCV 88.6 MCHC 32.8 RDW 13.2 Plt Count 296 MPV 9.7 Neutrophils % 54.4 D Lymphocytes % 38.5 D Monocytes % 5.5 Eosinophils % 1.1 D Basophils % 0.5 INR 1.08 PTT (Actin FS) 29.2 Sodium Potassium Chloride Carbon Dioxide Anion Gap BUN Creatinine Creat Clearance w eGFR Random Glucose Calcium Total Bilirubin AST ALT Alkaline Phosphatase Creatine Kinase Creatine Kinase Index CK-MB (CK-2) Troponin I Total Protein Albumin 07/16/16 03:20 WBC RBC Hgb Hct MCV MCHC RDW Plt Count MPV Neutrophils % Lymphocytes % Monocytes % Eosinophils % Basophils % INR PTT (Actin FS) Sodium 142 Potassium 3.8 Chloride 106 Carbon Dioxide 26 Anion Gap 10 BUN 15 D Creatinine 0.9 D Creat Clearance w eGFR > 60 Random Glucose 98 Calcium 8.3 L Total Bilirubin 0.3 D AST 23 D ALT 33 D Alkaline Phosphatase 66 Creatine Kinase 351 H D Creatine Kinase Index 0.7 CK-MB (CK-2) 2.299 Troponin I < 0.02 Total Protein 7.6 Albumin 3.5 Vital Signs (72 hours) 07/16/16 07/16/16 07/16/16 03:04 07:02 07:07 Temperature 97.1 F L 97.5 F L Pulse Rate 60 Pulse Rate [ 64 Left Brachial] Respiratory 18 Rate Blood Pressure 145/101 Blood Pressure 142/96 [Left Arm] O2 Sat by Pulse 100 97 98 Oximetry (%) No Known Allergies Allergy (Verified 07/16/16 02:57) HOME MEDICATIONS: Home Medications Medication Instructions Recorded NK [No Known Home Medication] 07/16/16 REVIEW OF SYSTEMS CONSTITUTIONAL: Absent: fever, chills, diaphoresis, generalized weakness, malaise, loss of appetite, weight change HEENT: Absent: rhinorrhea, nasal congestion, throat pain, throat swelling, difficulty swallowing, mouth swelling, ear pain, eye pain, visual changes CARDIOVASCULAR: Absent: chest pain, syncope, palpitations, irregular heart rate, lightheadedness , peripheral edema RESPIRATORY: Absent: cough, shortness of breath, dyspnea with exertion, orthopnea, wheezing, stridor, hemoptysis GASTROINTESTINAL: Absent: abdominal pain, abdominal distension, nausea, vomiting, diarrhea, constipation, melena, hematochezia GENITOURINARY: Absent: dysuria, frequency, urgency, hesitancy, hematuria, flank pain, genital pain MUSCULOSKELETAL: Absent: myalgia, arthralgia, joint swelling, back pain, neck pain SKIN: Absent: rash, itching, pallor HEMATOLOGIC/IMMUNOLOGIC: Absent: easy bleeding, easy bruising, lymphadenopathy, frequent infections ENDOCRINE: Absent: unexplained weight gain, unexplained weight loss, heat intolerance, cold intolerance NEUROLOGIC: Absent: headache, focal weakness or paresthesias, dizziness, unsteady gait, seizure, mental status changes, bladder or bowel incontinence PSYCHIATRIC: Absent: anxiety, depression, suicidal or homicidal ideation, hallucinations. PHYSICAL EXAMINATION Vital Signs - 24 hr 07/16/16 07/16/16 07:02 07:07 Temperature 97.5 F L Pulse Rate [ 64 Left Brachial] Blood Pressure 142/96 [Left Arm] O2 Sat by Pulse 97 98 Oximetry (%) GENERAL: Awake, alert, and fully oriented, in no acute distress. HEAD: Normal with no signs of trauma. EYES: Pupils equal, round and reactive to light, extraocular movements intact, sclera anicteric, conjunctiva clear. No lid lag. EARS, NOSE, THROAT: Ears normal, nares patent, oropharynx clear without exudates. Moist mucous membranes. NECK: Normal range of motion, supple without lymphadenopathy, JVD, or masses. LUNGS: Breath sounds equal, clear to auscultation bilaterally. No wheezes, and no crackles. No accessory muscle use. HEART: Regular rate and rhythm, normal S1 and S2 without murmur, rub or gallop. ABDOMEN: Soft, nontender, not distended, normoactive bowel sounds, no guarding, no rebound, no masses. No hepatomegaly or splenomegaly. MUSCULOSKELETAL: Normal range of motion at all joints. No bony deformities or tenderness. No CVA tenderness. UPPER EXTREMITIES: 2+ pulses, warm, well-perfused. No cyanosis. No clubbing. No peripheral edema. LOWER EXTREMITIES: 2+ pulses, warm, well-perfused. No calf tenderness. No peripheral edema. NEUROLOGICAL: Cranial nerves II-XII intact. Normal speech. Normal gait. PSYCHIATRIC: Cooperative. Good eye contact. Appropriate mood and affect. SKIN: Warm, dry, normal turgor, no rashes or lesions noted, normal capillary refill. ASSESSMENT/PLAN: 65 yr old black female with episode of syncope over night with hx of brain aneurysm 1. Admit to Tele for monitoring 2. AMS -lab work -cardiac enzymes -echo -carotid duplex Visit type - Emergency Visit Emergency Visit: Yes ED Registration Date: 07/16/16 Care time: The patient presented to the Emergency Department on the above date and was hospitalized for further evaluation of their emergent condition. - New Patient This patient is new to me today: Yes Date on this admission: 07/16/16 - Critical Care Critical Care patient: No
--- NOTE | 2016-07-16 11:04 | PN ---
Progress Note (short form) - Note Progress Note: Spoke with pt in ER for admission and pt is refusing to stay and be admitted. I explained the importance of evaluation for her health and safety however pt is adamant about staying. She lives with her 18 yr old grandson who she called and she has her brother coming to pick her up shortly. She has not signed the AMA as of yet. 11;30 AM pt now states she will accept admission for evaluation Orders placed. Visit type - Emergency Visit Emergency Visit: Yes ED Registration Date: 07/16/16 Care time: The patient presented to the Emergency Department on the above date and was hospitalized for further evaluation of their emergent condition. - New Patient This patient is new to me today: Yes Date on this admission: 07/16/16 - Critical Care Critical Care patient: No - Discharge Referral [facility]erred to [facility] Med P.C.: No
[2016-07-16 11:59] VITALS: BMI 30.6
--- NOTE | 2016-07-16 15:19 | CONSULT ---
Consult Consult Specialty:: Neurology Reason for Consultation:: Syncope - History of Present Illness Chief Complaint: Syncope History of Present Illness: 65 year old woman, history of hypertension, hyperlipidemia, brain aneurysm status post clipping and cerebral hemorrhage (July 2015) follows at [facility], stroke without residual weakness, presents with episode of syncope. As per patient, she was sitting on the toilet urinating when she suddenly lost consciousness. Patient a poor historian but states that her son heard her fall during episode. Unclear if any seizure like activity noted. On asking about possible prior seizure history patient is unclear and unsure if she is on any AEDs. States after regaining consciousness she was back to baseline and denies any confusion. CT head shows right frontal encephalomalacia. 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: Yes: CVA, Other (encephalopathy) Cardio/Vascular: Yes: HTN - Alcohol/Substance Use Hx Alcohol Use: No - Smoking History Smoking history: Never smoked Have you smoked in the past 12 months: No Aproximately how many cigarettes per day: 0 - Social History Usual Living Arrangement: With Child ADL: Independent History of Recent Travel: No Home Medications - Allergies Allergies/Adverse Reactions: Allergies Allergy/AdvReac Type Severity Reaction Status Date / Time No Known Allergies Allergy Verified 07/16/16 02:57 - Home Medications Home Medications: Ambulatory Orders Atorvastatin Ca [Lipitor] 20 mg PO HS 07/16/16 Metoprolol Succinate [Toprol Xl] 50 mg PO DAILY 07/16/16 Family Disease History - Family Disease History Family History: Denies Review of Systems - Review of Systems Constitutional: reports: No Symptoms Eyes: reports: No Symptoms HENT: reports: No Symptoms Cardiovascular: reports: No Symptoms Respiratory: reports: No Symptoms Neurological: reports: Change in LOC Physical Exam Vital Signs: Vital Signs Temperature 98 F 07/16/16 12:24 Pulse Rate 65 07/16/16 12:24 Respiratory Rate 18 07/16/16 12:24 Blood Pressure 132/73 07/16/16 12:24 O2 Sat by Pulse Oximetry (%) 100 07/16/16 12:19 Constitutional: Yes: No Distress, Calm Eyes: Yes: Conjunctiva Clear, EOM Intact HENT: Yes: Atraumatic, Normocephalic Cardiovascular: Yes: S1, S2 Respiratory: Yes: Regular Neurological: Yes: Alert, Oriented, Cran Nerves II-XII Intact ...Motor Strength: WNL Assessment/Plan 65 year old woman, history of hypertension, hyperlipidemia, brain aneurysm status post clipping and cerebral hemorrhage (July 2015) follows at [facility], stroke without residual weakness, presents with episode of syncope. As per patient, she was sitting on the toilet urinating when she suddenly lost consciousness. Patient a poor historian but states that her son heard her fall during episode. Unclear if any seizure like activity noted. On asking about possible prior seizure history patient is unclear and unsure if she is on any AEDs. States after regaining consciousness she was back to baseline and denies any confusion. CT head shows right frontal encephalomalacia. Examination non focal Syncope ?Vasovagal, ? seizure MRI brain without contrast MRA head and neck without contrast EEG ordered Will hold off on AEDs for now, unclear on episode and prior seizure history (no documentation of seizure in last neuro note) Telemetry monitoring Will follow
[2016-07-16] MEDS ORDERED: ATORVASTATIN CA 20 MG TABLET (FP) PO SCH (22:00)
[2016-07-16] MEDS ORDERED: METOPROLOL SUCCINATE 50 MG TAB.SR.24H (FP) ONE (22:30)
[2016-07-16] MEDS: METOPROLOL SUCCINATE 50 MG TAB.SR.24H (FP) PO SCH (22:31)
[2016-07-17 06:51] VITALS: TEMP 98.3
[2016-07-17 07:54] LABS: MCH 29.3 pg (25.7-33.7); MCHC 33.2 g/dl (32.0-36.0); MEAN CELL VOLUME 88.3 fl (80-96); MEAN PLT VOLUME 9.9 fl (7.5-11.1); PLATELET COUNT 273 K/MM3 (134-434); RDW 13.5 % (11.6-15.6); WHITE BLOOD COUNT 5.3 K/mm3 (4.0-10.0)
[2016-07-17 08:12] LABS: CHOLESTEROL 134 mg/dL (50-200); LDL CHOLESTEROL (ONLY SJRH) 30 mg/dL (5-100); TROPONIN I < 0.02 ng/ml (0.00-0.05)
[2016-07-17 08:14] LABS: ALBUMIN 3.4 g/dl (3.4-5.0); ALK PHOS 65 U/L (45-117); ANION GAP 7 (8-16); BILIRUBIN,TOTAL 0.3 mg/dL (0.2-1.0); CALCIUM 8.6 mg/dL (8.5-10.1); CHOLESTEROL 132 mg/dL (50-200); CO2 30 mmol/L (21-32); CREATININE 0.8 mg/dL (0.55-1.02); GLUCOSE,RANDOM 86 mg/dL (74-106); SGOT/AST 21 U/L (15-37); SGPT/ALT 29 U/L (12-78); TOT PROT 7.4 g/dl (6.4-8.2)
[2016-07-17] MEDS: METOPROLOL SUCCINATE 50 MG TAB.SR.24H (FP) PO SCH (10:51)
[2016-07-17 14:09] VITALS: BP 122/59; PULSE 61
--- NOTE | 2016-07-17 14:49 | DS ---
Physical Exam: SUBJECTIVE: Patient seen and examined OBJECTIVE: Vital Signs Period Temp Pulse Resp BP Sys/Coronel Pulse Ox Last 24 Hr 97.8 F-98.3 F 60-67 18-20 122-143/50-77 100-100 PHYSICAL EXAM GENERAL: The patient is awake, alert, and fully oriented, in no acute distress. HEAD: Normal with no signs of trauma. EYES: PERRL, extraocular movements intact, sclera anicteric, conjunctiva clear. ENT: Ears normal, nares patent, oropharynx clear without exudates, moist mucous membranes. NECK: Trachea midline, full range of motion, supple. LUNGS: Breath sounds equal, clear to auscultation bilaterally, no wheezes, no crackles, no accessory muscle use. HEART: Regular rate and rhythm, S1, S2 without murmur, rub or gallop. ABDOMEN: Soft, nontender, nondistended, normoactive bowel sounds, no guarding, no rebound, no hepatosplenomegaly, no masses. EXTREMITIES: 2+ pulses, warm, well-perfused, no edema. NEUROLOGICAL: Cranial nerves II through XII intact. Gait WNL no neurological deficits strength 5/5 PSYCH: Normal mood, normal affect. SKIN: Warm, dry, normal turgor, no rashes or lesions noted. LABS Laboratory Results - last 24 hr 07/17/16 07/17/16 07/17/16 06:00 06:00 06:00 WBC 5.3 RBC 4.07 Hgb 11.9 Hct 35.9 MCV 88.3 MCHC 33.2 RDW 13.5 Plt Count 273 MPV 9.9 Sodium 142 Potassium 4.1 Chloride 105 Carbon Dioxide 30 Anion Gap 7 L BUN 14 Creatinine 0.8 Creat Clearance w eGFR > 60 Random Glucose 86 Calcium 8.6 Total Bilirubin 0.3 AST 21 ALT 29 Alkaline Phosphatase 65 Troponin I < 0.02 Total Protein 7.4 Albumin 3.4 Triglycerides 37 Cholesterol 132 134 Total LDL Cholesterol 30 HDL Cholesterol 97 H HOSPITAL COURSE: Date of Admission:07/16/16 Date of Discharge: 07/17/16 65F with history of HTN HLD and brain aneurysm presents to the hospital with syncope while using the toilet. Patient was placed on observation. Seen by neurology had a Carotid duplx which was WNL. also had a head CT which did not show any acute pathology. Restarted on home medications. Will follow up with neurologist and neurosurgeon and PMD for MRI/MRA brain as outpatient if warranted. Minutes to complete discharge: 50 Discharge Summary Reason For Visit: SYNCOPE Current Active Problems Headache (Acute) Syncope (Acute) CVA (cerebrovascular accident due to intracerebral hemorrhage) (Chronic) HLD (hyperlipidemia) (Chronic) HTN (hypertension) (Chronic) Condition: Improved - Instructions Diet, Activity, Other Instructions: eat a low fat low sodium diet follow up with your primary care doctor in 1 week follow up with the neurologist follow up with the neurosurgeon who you have been seeing copntinue your home medications if you experience these symtpoms again please go to the nearest emergency room please schedule an MRI/MRA with the neurologist or neurosurgeon Referrals: Kalee Caceres MD [Primary Care Provider] - 1 Week Kameron Hoyt MD [Staff Physician] - 1 Week Disposition: HOME - Home Medications Comprehensive Discharge Medication List: Ambulatory Orders Atorvastatin Ca [Lipitor] 20 mg PO HS 07/16/16 Metoprolol Succinate [Toprol Xl] 50 mg PO DAILY 07/16/16 This patient is new to me today: Yes Date on this admission: 07/17/16 Emergency Visit: Yes ED Registration Date: 07/16/16 Care time: The patient presented to the Emergency Department on the above date and was hospitalized for further evaluation of their emergent condition. Critical Care patient: No - Discharge Referral Referred to [facility] Med P.C.: No
--- NOTE | 2016-07-17 16:48 | PN ---
Teaching Attending Note Name of Resident: Kush Harris ATTENDING PHYSICIAN STATEMENT I saw and evaluated the patient. I reviewed the resident's note and discussed the case with the resident. I agree with the resident's findings and plan as documented. Patient wants to go home, Denies any headache, no nausea or vomiting. Vital Signs Temperature 98.3 F 07/17/16 13:49 Pulse Rate 61 07/17/16 13:49 Respiratory Rate 20 07/17/16 13:49 Blood Pressure 122/59 07/17/16 13:49 O2 Sat by Pulse Oximetry (%) 100 07/17/16 09:00 CBCD WBC 5.3 K/mm3 (4.0-10.0) 07/17/16 06:00 RBC 4.07 M/mm3 (3.60-5.2) 07/17/16 06:00 Hgb 11.9 GM/dL (10.7-15.3) 07/17/16 06:00 Hct 35.9 % (32.4-45.2) 07/17/16 06:00 MCV 88.3 fl (80-96) 07/17/16 06:00 MCHC 33.2 g/dl (32.0-36.0) 07/17/16 06:00 RDW 13.5 % (11.6-15.6) 07/17/16 06:00 Plt Count 273 K/MM3 (134-434) 07/17/16 06:00 MPV 9.9 fl (7.5-11.1) 07/17/16 06:00 CMP Sodium 142 mmol/L (136-145) 07/17/16 06:00 Potassium 4.1 mmol/L (3.5-5.1) 07/17/16 06:00 Chloride 105 mmol/L (98-107) 07/17/16 06:00 Carbon Dioxide 30 mmol/L (21-32) 07/17/16 06:00 Anion Gap 7 (8-16) L 07/17/16 06:00 BUN 14 mg/dL (7-18) 07/17/16 06:00 Creatinine 0.8 mg/dL (0.55-1.02) 07/17/16 06:00 Creat Clearance w eGFR > 60 (>60) 07/17/16 06:00 Random Glucose 86 mg/dL (74-106) 07/17/16 06:00 Calcium 8.6 mg/dL (8.5-10.1) 07/17/16 06:00 Total Bilirubin 0.3 mg/dL (0.2-1.0) 07/17/16 06:00 AST 21 U/L (15-37) 07/17/16 06:00 ALT 29 U/L (12-78) 07/17/16 06:00 Alkaline Phosphatase 65 U/L (45-117) 07/17/16 06:00 Total Protein 7.4 g/dl (6.4-8.2) 07/17/16 06:00 Albumin 3.4 g/dl (3.4-5.0) 07/17/16 06:00 CARDIAC ENZYMES Creatine Kinase 351 IU/L (26-192) H D 07/16/16 03:20 Troponin I < 0.02 ng/ml (0.00-0.05) 07/17/16 06:00 Current Medications Generic Name Dose Route Start Last Admin Trade Name Hugo PRN Reason Stop Dose Admin Atorvastatin Calcium 20 mg 07/16/16 22:00 07/16/16 22:29 Lipitor - PO 20 mg HS BERTRAM Administration Metoprolol Succinate 50 mg 07/17/16 10:00 07/17/16 10:51 Toprol Xl - PO 50 mg DAILY BERTRAM Administration Home Medications Medication Instructions Recorded Atorvastatin Ca [Lipitor] 20 mg PO HS 07/16/16 Metoprolol Succinate [Toprol Xl] 50 mg PO DAILY 07/16/16 PE/ROS: as per resident ASSESSMENT AND PLAN: 65 year old woman, history of hypertension, hyperlipidemia, brain aneurysm status post clipping and cerebral hemorrhage (July 2015) follows at [facility], stroke without residual weakness, presents with episode of syncope. As per patient, she was sitting on the toilet urinating when she suddenly lost consciousness. CT head shows right frontal encephalomalacia. #Syncope most likely Vasovagal # Hx of Brain Aneurysm s/p clipping with cerebral hemorrhage (july 2015) at [facility] Patient will follow up with Neurosurgeon and Neurologist at [facility] within a week period. Also will follow up with her PMD; Kalee Caceres Carotid Duplex is negative.
--- NOTE | 2016-07-18 07:16 | EKG ---
Test Reason : Blood Pressure : / mmHG Vent. Rate : 060 BPM Atrial Rate : 060 BPM P-R Int : 214 ms QRS Dur : 092 ms QT Int : 440 ms P-R-T Axes : 060 057 046 degrees QTc Int : 440 ms SINUS RHYTHM WITH 1ST DEGREE A-V BLOCK POSSIBLE LEFT ATRIAL ENLARGEMENT NONSPECIFIC ST AND T WAVE ABNORMALITY ABNORMAL ECG WHEN COMPARED WITH ECG OF 05-JUL-2016 00:11, NO SIGNIFICANT CHANGE WAS FOUND Confirmed by DAVID VEGA MD ([id number]) on 07/18/2016 7:15:55 AM Referred By: Confirmed By:DAVID VEGA MD
== END 2016-07-17 17:52 | disposition home or self-care (01) ==
LOC: JER 02:48 → JERBED 04:32 → J4W 11:58
PROVIDERS: ADMIT Internal Medicine; ATTEND Internal Medicine
DX: R55 Syncope and collapse (principal); R41.82 Altered mental status, unspecified; R51 Headache; E78.5 Hyperlipidemia, unspecified; I10 Essential (primary) hypertension; I05.9 Rheumatic mitral valve disease, unspecified; Z86.79 Personal history of other diseases of the circulatory system; Z86.73 Personal history of transient ischemic attack (TIA), and cerebral infarction without residual deficits; R73.03 Prediabetes
CPT/HCPCS: 36415; 70450-TC; 71010-TC; 80053; 80061; 82465; 82550; 82553; 83721; 84484; 85025; 85027; 85610; 85730; 93005; 93010; 93306-TC; 93880-TC; 95816; 99285-25; G0378

== ENCOUNTER 2017-04-23 13:36 | Emergency (ER) | payer OTHER ==
[2017-04-23 13:46] VITALS: BP 139/75; PULSE 81; TEMP 98.7; BMI 31.2
[2017-04-23] MEDS ORDERED: morphine CARPU-JECT 4 MG/1 ML DISP.SYRIN IVPUSH ONE (14:31)
[2017-04-23] MEDS ORDERED: morphine CARPU-JECT 10 MG/1 ML DISP.SYRIN ONE (14:39)
[2017-04-23 14:50] LABS: URINE APPEARANCE TURBID; URINE BILIRUBIN NEGATIVE (NEGATIVE); URINE BLOOD 3+ (NEGATIVE); URINE COLOR RED; URINE GLUCOSE (UA) NEGATIVE (NEGATIVE); URINE KETONE NEGATIVE (NEGATIVE); URINE NITRITE NEGATIVE (NEGATIVE); URINE UROBILINOGEN NEGATIVE mg/dL (0.2-1.0)
[2017-04-23 14:53] LABS: URINE LEUK ESTERASE 1+ (NEGATIVE); URINE PROTEIN 2+ (NEGATIVE)
[2017-04-23] MEDS ORDERED: morphine CARPU-JECT 2 MG/1 ML DISP.SYRIN IM ONE ×2 (14:53→15:00)
[2017-04-23 15:12] LABS: BASO % 0.5 % (0-2.0); EOS % 0.4 % (0-4.5); HEMATOCRIT 39.7 % (32.4-45.2); LYMPH % 21.4 % (8-40); MCH 29.5 pg (25.7-33.7); MCHC 32.7 g/dl (32.0-36.0); MEAN CELL VOLUME 90.1 fl (80-96); MEAN PLT VOLUME 11.5 fl (7.5-11.1); MONO % 7.2 % (3.8-10.2); NEUT % 70.5 % (42.8-82.8); PLATELET COUNT 298 K/MM3 (134-434); RDW 14.1 % (11.6-15.6); WHITE BLOOD COUNT 8.2 K/mm3 (4.0-10.0)
--- NOTE | 2017-04-23 15:19 | PDOC ---
Attending Attestation - Resident Resident Name: Javier Sparrow - ED Attending Attestation I have performed the following: I have examined & evaluated the patient, The case was reviewed & discussed with the resident, I agree w/resident's findings & plan, Exceptions are as noted - HPI HPI: 04/23/17 15:17 66-year-old female presents with dysuria and hematuria with suprapubic discomfort and low back discomfort since yesterday. No fevers or chills, no vomiting or diarrhea, no injuries. - Physicial Exam PE: 04/23/17 15:18 Afebrile, vital signs normal. Well-appearing seated in stretcher Abdomen is soft/nondistended. Suprapubic discomfort to palpation without guarding, questionable right CVA discomfort. - Medical Decision Making 04/23/17 15:18 Patient seen and evaluated with the resident. I agree with the overall evaluation, assessment, and management with the following summary of visit: 66-year-old female with dysuria and hematuria for one day consistent with cystitis, normal vital signs without evidence of sepsis. Will check labs, urinalysis, urine culture Pain control Well-appearing, if above is within normal limits is a candidate for outpatient antibiotics with prompt follow-up
[2017-04-23 15:31] LABS: URINE MUCUS MODERATE
--- NOTE | 2017-04-23 16:13 | PDOC ---
History of Present Illness - General Chief Complaint: Pain, Acute Stated Complaint: VAGINAL BLEEDING, PELVIC PAIN Time Seen by Provider: 04/23/17 14:02 History Source: Patient Exam Limitations: No Limitations - History of Present Illness Initial Comments: 04/23/17 16:24 66F with pmh of hemorrhagic stroke, appendicitis and hysterectomy presents to the ED for painful hematuria since this morning. She also complains that her urine has a foul odor. No chills, dizziness, nausea, vomiting or diarrhea. 04/23/17 16:30 Past History - Past Medical History Allergies/Adverse Reactions: Allergies Allergy/AdvReac Type Severity Reaction Status Date / Time No Known Allergies Allergy Verified 04/23/17 13:42 Home Medications: Ambulatory Orders Atorvastatin Ca [Lipitor] 20 mg PO HS 07/16/16 Metoprolol Succinate [Toprol Xl] 50 mg PO DAILY 07/16/16 Sulfamethoxazole/Trimethoprim [Bactrim Ds -] 1 tab PO BID #14 tablet 04/23/17 Cardiac Disorders: Yes (mitral valve regurgitation) CVA: Yes (NO RESIDUAL WEAKNESS.) COPD: No Diabetes: Yes (pre diabetic) HTN: Yes Hypercholesterolemia: Yes - Surgical History Abdominal Surgery: Yes (exploratory lap?) Appendectomy: Yes Neurologic Surgery: Yes (brain annurysm) Orthopedic Surgery: Yes (L. Shoulder, R. Knee) - Immunization History Immunization Up to Date: Yes - Suicide/Smoking/Psychosocial Hx Smoking Status: No Smoking History: Never smoked Have you smoked in the past 12 months: No Number of Cigarettes Smoked Daily: 0 Cigars Per Day: 0 Hx Alcohol Use: No Drug/Substance Use Hx: No Substance Use Type: None Hx Substance Use Treatment: No Review of Systems - Review of Systems Able to Perform ROS?: Yes Is the patient limited Lao proficient: No Constitutional: No: Symptoms Reported HEENTM: No: Symptoms Reported Respiratory: No: Symptoms reported Cardiac (ROS): No: Symptoms Reported ABD/GI: No: Symptoms Reported : Yes: See HPI Musculoskeletal: No: Symptoms Reported Integumentary: No: Symptoms Reported Neurological: No: Symptoms reported All Other Systems: Reviewed and Negative *Physical Exam - Vital Signs Last Vital Signs Temp Pulse Resp BP Pulse Ox 98.7 F 81 17 139/75 8 L 04/23/17 13:43 04/23/17 13:43 04/23/17 13:43 04/23/17 13:43 04/23/17 13:43 - Physical Exam General Appearance: Yes: Nourished, Appropriately Dressed. No: Apparent Distress HEENT: positive: EOMI, YENI, Normal ENT Inspection Neck: negative: Tender, Trachea midline Respiratory/Chest: positive: Lungs Clear, Normal Breath Sounds. negative: Chest Tender, Respiratory Distress Cardiovascular: positive: Regular Rhythm, Regular Rate, S1, S2 Female Pelvic Exam: positive: normal external exam Gastrointestinal/Abdominal: positive: Normal Bowel Sounds, Flat, Soft. negative : Tender ED Treatment Course - LABORATORY CBC & Chemistry Diagram: 04/23/17 14:23 04/23/17 14:23 - ADDITIONAL ORDERS Additional order review: Laboratory Results 04/23/17 04/23/17 14:23 14:23 Sodium 140 Chloride 106 Carbon Dioxide 25 Anion Gap 9 BUN 14 Creatinine 0.7 Creat Clearance w eGFR > 60 Random Glucose 88 Calcium 9.3 Total Protein 8.4 H Albumin 3.8 Urine Color Red Urine Appearance Turbid Urine pH 8.0 D Ur Specific [place] 1.026 Urine Protein 2+ H Urine Glucose (UA) Negative Urine Ketones Negative Urine Blood 3+ H Urine Nitrite Negative Urine Bilirubin Negative Urine Urobilinogen Negative Ur Leukocyte Esterase 1+ H Urine WBC (Auto) 58 Urine RBC (Auto) 4283 Urine Mucus Moderate 04/23/17 14:23 RBC 4.40 MCV 90.1 MCHC 32.7 RDW 14.1 MPV 11.5 H D Neutrophils % 70.5 D Lymphocytes % 21.4 D Monocytes % 7.2 Eosinophils % 0.4 Basophils % 0.5 - Medications Given in the ED: ED Medications Discontinued Medications Generic Name Dose Route Start Last Admin Trade Name Freq PRN Reason Stop Dose Admin Morphine Sulfate 4 mg 04/23/17 14:31 04/23/17 15:01 Morphine Injection - IVPUSH 04/23/17 14:32 Not Given ONCE ONE Morphine Sulfate 2 mg 04/23/17 14:53 04/23/17 15:01 Morphine Injection - IM 04/23/17 14:54 Not Given ONCE ONE Morphine Sulfate 4 mg 04/23/17 15:00 04/23/17 15:00 Morphine Injection - IM 04/23/17 15:01 4 mg NOW ONE Administration Medical Decision Making - Medical Decision Making 04/23/17 16:38 66F with pmh of hemorrhagic stroke, appendicitis and hysterectomy presents to the ED for painful hematuria since this morning. She also complains that her urine has a foul odor. No chills, dizziness, nausea, vomiting or diarrhea. Basic labs WNL, normal kidney function. We will treat for cystitis with Bactrim and sent Rx for outpatient treatment. *DC/Admit/Observation/Transfer Diagnosis at time of Disposition: Cystitis - Discharge Dispostion Disposition: HOME Admit: No - Prescriptions Prescriptions: Sulfamethoxazole/Trimethoprim [Bactrim Ds -] 1 tab PO BID #14 tablet - Referrals Referrals: Kalee Caceres MD [Primary Care Provider] - - Patient Instructions Printed Discharge Instructions: Acute Cystitis Additional Instructions: Well, you have cystitis. 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 Come back to the Emergency Department for any new, worsening or concerning symptom. - Post Discharge Activity
[2017-04-23] MEDS ORDERED: SULFAMETHOXAZOLE/TRIMETHOPRIM 800MG/160MG D.S. TABLET PO ONE (16:16)
[2017-04-23] MEDS ORDERED: SULFAMETHOXAZOLE/TRIMETHOPRIM 800MG/160MG D.S. TABLET ONE (16:21)
[2017-04-23] MEDS ORDERED: ACETAMINOPHEN 500 MG TABLET (FP) PO ONE (16:29)
--- NOTE | 2017-04-25 09:24 | PDOC ---
Patient Follow-up (Call Back) - Post ED Follow - Up Disposition at time of original discharge: HOME Reason for Call Back: Abnwl. Microbiology (Patient with positive urine culture on Bactrim awaiting sensitivity.)
== END 2017-04-23 16:34 | disposition home or self-care (01) ==
LOC: JER 13:36
PROC: 3E023NZ Introduction of Analgesics, Hypnotics, Sedatives into Muscle, Percutaneous Approach (ICD-10-PCS; principal; 2017-04-23)
DX: N30.01 Acute cystitis with hematuria (principal); I10 Essential (primary) hypertension; E78.00 Pure hypercholesterolemia, unspecified; R73.03 Prediabetes
CPT/HCPCS: 36415; 81003; 81015; 85025; 87086; 87186; 96372; 99282-25

== ENCOUNTER 2017-06-06 17:42 | Emergency (ER) | payer OTHER ==
--- NOTE | 2017-06-06 17:45 | PDOC ---
Rapid Medical Evaluation Chief Complaint: Respiratory Time Seen by Provider: 06/06/17 17:43 Medical Evaluation: Allergies Allergy/AdvReac Type Severity Reaction Status Date / Time No Known Allergies Allergy Verified 04/23/17 13:42 06/06/17 17:44 I have performed a brief in-person evaluation of this patient. The patient presents with a chief complaint of: Cough x several weeks, s/p abx 3 weeks ago for bronchitis, had normal CXR per pt. No SOB, CP, f/c. Not taking anything for cough. H/o HTN, HLD, CVA, pre-DM Pertinent physical exam findings:Stable w/ clear chest/lungs I have ordered the following:cxr The patient will proceed to the ED for further evaluation. 06/06/17 17:46 06/06/17 17:47
[2017-06-06 17:47] VITALS: BP 139/72; PULSE 68; TEMP 98.4; BMI 32.5
--- NOTE | 2017-06-06 18:16 | PDOC ---
History of Present Illness - General Chief Complaint: Respiratory Stated Complaint: COLD SYMPTOMS Time Seen by Provider: 06/06/17 17:43 History Source: Patient Exam Limitations: No Limitations - History of Present Illness Initial Comments: 06/06/17 18:15 The patient presents with a chief complaint of: Cough for 3 weeks. Patient reports being seen in the emergency department of [facility] discharged on albuterol and azithromycin diagnosed with bronchitis then followed up on Sunday with Dr. Caceres in office and was given [facility] cough medicine, as per patient had normal CXR . Reports last night had cough did not attempt to use the albuterol. Currently No SOB. Chest pain with coughing. Afebrile Past Medical History: H/o HTN, HLD, CVA, pre-DM. Allergies: No known allergies Medications: [See medication list] Family History: Non-contributory Social History: Denies smoking, alcohol use, or IVDU Vital signs on arrival are [notable for pulse of 96.] Review of Systems GENERAL/CONSTITUTIONAL: [No fever or chills. No weakness. No weight change.] HEAD, EYES, EARS, NOSE AND THROAT: [No change in vision. No ear pain or discharge. No sore throat. ] CARDIOVASCULAR: [No chest pain or shortness of breath.] RESPIRATORY: [Cough, no wheezing or hemoptysis] GASTROINTESTINAL: [No nausea, vomiting, diarrhea or constipation. No rectal bleeding.] GENITOURINARY: [No dysuria, frequency, or change in urination.] MUSCULOSKELETAL: [No joint or muscle swelling or pain. No neck or back pain.] SKIN AND BREASTS: [No rash or easy bruising.] NEUROLOGIC: [No headache, vertigo, loss of consciousness, or loss of sensation.] PSYCHIATRIC: [No depression or anxiety.] ENDOCRINE: [No increased thirst. No abnormal weight change.] HEMATOLOGIC/LYMPHATIC: [No anemia, easy bleeding, or history of blood clots.] ALLERGIC/IMMUNOLOGIC: [No hives or skin allergy. No latex allergy.] Physical Exam: GENERAL: [The patient is awake, alert, and fully oriented, in no acute distress. ] EYES: [Pupils equal, round and reactive to light, extraocular movements intact, sclera anicteric, conjunctiva clear.] ENT: [Ears normal, nares patent, oropharynx clear without exudates. Moist mucous membranes. No uvula deviation] NECK: [Normal range of motion, supple without lymphadenopathy, JVD, or masses.] LUNGS: [Breath sounds equal, clear to auscultation bilaterally. No wheezes, and no crackles.] HEART: [Regular rate and rhythm, normal S1 and S2 without murmur, rub or gallop. ] ABDOMEN: [Soft, nontender, normoactive bowel sounds. No guarding, no rebound. No masses. No bruising or abrasions] MUSCULOSKELETAL: [Normal range of motion, no edema. No clubbing or cyanosis. No cords, erythema, or tenderness. No CVA Tenderness with fist.] NEUROLOGICAL: [Cranial nerves II through XII grossly intact. Normal speech, normal gait.] SKIN: [Warm, Dry, normal turgor, no rashes or lesions noted.] Past History - Past Medical History Allergies/Adverse Reactions: Allergies Allergy/AdvReac Type Severity Reaction Status Date / Time No Known Allergies Allergy Verified 06/06/17 17:47 Home Medications: Ambulatory Orders Albuterol Sulfate Inhaler - [Ventolin HFA Inhaler -] 1 - 2 inh PO Q4H #1 inhaler 06/06/17 Amlodipine Besylate 5 mg PO ASDIR 06/06/17 Gabapentin 300 mg PO ASDIR 06/06/17 Lisinopril [Zestril] 2.5 mg PO ASDIR 06/06/17 Loratadine 10 mg PO ASDIR 06/06/17 Metoprolol Succinate 50 mg PO ASDIR 06/06/17 Montelukast Sodium [Singulair] 10 mg PO HS #30 tablet 06/06/17 Cardiac Disorders: Yes (mitral valve regurgitation) CVA: Yes (NO RESIDUAL WEAKNESS.) COPD: No Diabetes: Yes (pre diabetic) HTN: Yes Hypercholesterolemia: Yes - Surgical History Abdominal Surgery: Yes (exploratory lap?) Appendectomy: Yes Neurologic Surgery: Yes (brain annurysm) Orthopedic Surgery: Yes (L. Shoulder, R. Knee) - Immunization History Immunization Up to Date: Yes - Suicide/Smoking/Psychosocial Hx Smoking Status: No Smoking History: Never smoked Have you smoked in the past 12 months: No Number of Cigarettes Smoked Daily: 0 Cigars Per Day: 0 Hx Alcohol Use: No Drug/Substance Use Hx: No Substance Use Type: None Hx Substance Use Treatment: No *Physical Exam - Vital Signs Last Vital Signs Temp Pulse Resp BP Pulse Ox 98.4 F 68 18 139/72 06/06/17 17:43 06/06/17 17:43 06/06/17 17:43 06/06/17 17:43 ED Treatment Course - LABORATORY CBC & Chemistry Diagram: 06/06/17 19:00 Medical Decision Making - Medical Decision Making 06/06/17 18:44 A/P: Patient with cough, persistent, has completed course of antibiotics on assessment lungs are clear O2 sat 100% and patient is afebrile. We will perform another chest x-ray to rule out walking pneumonia, CBC. Combivent . 06/06/17 19:35 Wet read of x-rays negative for acute cardiopulmonary disease, CBC with no evidence of infection. Laboratory Results - last 24 hr 06/06/17 19:00 WBC 5.3 RBC 4.15 Hgb 12.0 Hct 37.1 MCV 89.3 MCH 28.8 MCHC 32.3 RDW 13.8 Plt Count 262 MPV 10.2 Neutrophils % 53.5 D Lymphocytes % 37.6 D Monocytes % 7.3 Eosinophils % 1.2 D Basophils % 0.4 Patient feels well after Combivent treatment will DC on albuterol encourage patient to use it also given Singulair, lungs are clear and reassessment O2 sats 100% on room air. I have encourage patient to purchase a cool air humidifier follow-up with Dr. Caceres tomorrow I discussed the physical exam findings, ancillary test results and final diagnoses with the patient. I answered all of the patient's questions. The patient was satisfied with the care received and felt comfortable with the discharge plan and treatment plan. The patient will call tomorrow to arrange follow-up and will return to the Emergency Department with any new, persistent or worsening symptoms. *DC/Admit/Observation/Transfer Diagnosis at time of Disposition: Cough Reactive airway disease Qualifiers: Asthma severity: mild Asthma persistence: unspecified Qualified Code(s): J45.909 - Unspecified asthma, uncomplicated - Discharge Dispostion Disposition: HOME Condition at time of disposition: Stable Admit: No - Prescriptions Prescriptions: Albuterol Sulfate Inhaler - [Ventolin HFA Inhaler -] 1 - 2 inh PO Q4H #1 inhaler Montelukast Sodium [Singulair] 10 mg PO HS #30 tablet - Referrals Referrals: Kalee Caceres MD [Primary Care Provider] - - Patient Instructions Printed Discharge Instructions: Cough Additional Instructions: Keep head of bed elevated 45 when sleeping Treatments every 4 hours as needed Cool air humidifier Please use albuterol every 4 hours as needed for cough. Followup in the primary care doctor's office in 2 days for evaluation. If any respiratory distress, increased cough, inability to drink, increased wheezing please return immediately to emergency department. - Post Discharge Activity
[2017-06-06] MEDS ORDERED: ALBUTEROL SO4 2.5/IPRATROPIUM 0.5 INH SOL 3 ML VIAL.NEB. NEB ONE ×2 (18:46→18:49)
[2017-06-06 19:07] LABS: BASO % 0.4 % (0-2.0); EOS % 1.2 % (0-4.5); HEMATOCRIT 37.1 % (32.4-45.2); LYMPH % 37.6 % (8-40); MCH 28.8 pg (25.7-33.7); MCHC 32.3 g/dl (32.0-36.0); MEAN CELL VOLUME 89.3 fl (80-96); MEAN PLT VOLUME 10.2 fl (7.5-11.1); MONO % 7.3 % (3.8-10.2); NEUT % 53.5 % (42.8-82.8); PLATELET COUNT 262 K/MM3 (134-434); RBC 4.15 M/mm3 (3.60-5.2); RDW 13.8 % (11.6-15.6); WHITE BLOOD COUNT 5.3 K/mm3 (4.0-10.0)
== END 2017-06-06 19:39 | disposition home or self-care (01) ==
LOC: JERFT 17:42
PROC: 3E0F7GC Introduction of Other Therapeutic Substance into Respiratory Tract, Via Natural or Artificial Opening (ICD-10-PCS; principal; 2017-06-06)
DX: J45.909 Unspecified asthma, uncomplicated (principal); I10 Essential (primary) hypertension; E78.00 Pure hypercholesterolemia, unspecified; R73.03 Prediabetes; I34.0 Nonrheumatic mitral (valve) insufficiency; Z86.73 Personal history of transient ischemic attack (TIA), and cerebral infarction without residual deficits
CPT/HCPCS: 36415; 71046-TC-FY; 85025; 99281-25

== ENCOUNTER 2017-08-30 23:31 | Observation (INO) | payer OTHER ==
[2017-08-30] MEDS ORDERED: SODIUM CHLORIDE 1,000 ML IV SCH (23:45)
[2017-08-31 00:30] LABS: BASO % 0.5 % (0-2.0); EOS % 0.8 % (0-4.5); HEMATOCRIT 37.9 % (32.4-45.2); HEMOGLOBIN 12.3 GM/dL (10.7-15.3); LYMPH % 35.1 % (8-40); MCH 29.6 pg (25.7-33.7); MCHC 32.4 g/dl (32.0-36.0); MEAN CELL VOLUME 91.2 fl (80-96); MEAN PLT VOLUME 9.9 fl (7.5-11.1); MONO % 9.1 % (3.8-10.2); NEUT % 54.5 % (42.8-82.8); PLATELET COUNT 266 K/MM3 (134-434); RBC 4.16 M/mm3 (3.60-5.2); WHITE BLOOD COUNT 5.7 K/mm3 (4.0-10.0)
--- NOTE | 2017-08-31 00:36 | PDOC ---
Attending Attestation - HPI HPI: 08/31/17 01:49 Patient is a 66 year old female with a significant past medical history of mitral valve regurg, HLD, HTN, L. Brain Aneurysm who presents to the ED with complaints of headaches and possible CVA. As per patient's family, patient was walking to her card from a graduation when she began to experience lightheadedness, before sitting down to rest. They report upon sitting down, patient began to experience multiple episodes of vomiting. Patient reports experiencing chills stating she feels very ill like she is unable to speak correctly, prompting her to come into the ED for further evaluation. As per patient's family, patient is not articulating very swell and is currently not at baseline. Denies chest pain, Sob. Denies constipation, diarrhea, dysuria, hematuria. Denies contact with sick individuals, out of state travelling. Denies any other symptoms. Allergies: None Social history: No smoking. No alcohol. No illicit drugs. Surgical history: brain aneurysm, L. Shoulder, R. Knee, appendicitis, and hysterectomy PMD: Dr. Kalee Caceres Neurologist: Dr. Luis M Brown, <Ramos Vaca - Last Filed: 08/31/17 01:49> - Resident Resident Name: Angel Mendoza - ED Attending Attestation I have performed the following: I have examined & evaluated the patient, The case was reviewed & discussed with the resident, I agree w/resident's findings & plan, Exceptions are as noted - Physicial Exam PE: 08/31/17 01:40 Physical Exam General Appearance: Yes: Appropriately Dressed. No: Apparent Distress, Intoxicated HEENT: positive: EOMI, YENI, Normal ENT Inspection, Normal Voice, TMs Normal, Pharynx Normal. negative: Pale Conjunctivae, Photophobia, Scleral Icterus (R), Scleral Icterus (L) Neck: positive: Trachea midline, Normal Thyroid, Supple. negative: Tender, Rigid, Carotid bruit, Stridor, Lymphadenopathy (R), Lymphadenopathy (L), Thyromegaly Respiratory/Chest: positive: Lungs Clear, Normal Breath Sounds. negative: Chest Tender, Respiratory Distress, Accessory Muscle Use, Labored Respiration, RES, Crackles, Rales, Rhonchi, Stridor, Wheezing, Dullness Cardiovascular: positive: Regular Rhythm, Regular Rate, S1, S2. negative: Edema , JVD, Murmur, Bradycardia, Tachycardia Vascular Pulses: Dorsalis-Pedis (R): 2+, Doralis-Pedis (L): 2+ Gastrointestinal/Abdominal: positive: Normal Bowel Sounds, Flat, Soft. negative : Tender, Organomegaly, Pulsatile Mass, Increased Bowel Sounds, Decreased BS, Distended, Guarding, Rebound, Hernia, Hepatomegaly, Spleenomegaly Lymphatic: negative: Adenopathy, Tenderness Musculoskeletal: positive: Normal Inspection. negative: CVA Tenderness, Decreased Range of Motion Extremity: positive: Normal Capillary Refill, Normal Inspection, Normal Range of Motion, Pelvis Stable. negative: Tender, Pedal Edema, Swelling, Erythema Integumentary: positive: Normal Color, Dry, Warm. 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 negative: EOM Palsy, Facial Droop, Sensory Deficit - Medical Decision Making 09/04/17 19:23 Pt admitted for continued care <Stephan Encarnacion - Last Filed: 09/04/17 19:24>
[2017-08-31 00:50] LABS: INR 0.98 (0.82-1.09); PROTHROMBIN TIME (PATIENT) 11.1 SEC (9.7-13.0)
--- NOTE | 2017-08-31 01:00 | PDOC ---
History of Present Illness <LeónStephan rodriguez - Last Filed: 08/31/17 01:40> - General History Source: Patient, EMS, Family Exam Limitations: No Limitations - History of Present Illness Initial Comments: 08/31/17 00:49 The patient is a 66F with a PMH of hemorrhagic stroke in 2016, appendicitis, and hysterectomy, who presents to the ER with complaints of headache and possible CVA. Per family, the patient had just left a graduation alliance party and as she was walking to the car, felt lightheaded and sat herself down. The patient denies any LOC but states that she was not feeling well and sat herself down, then vomited multiple times, NBNB. The patient states that she feels "ill", weak , and cold and feels difficulty with speech and (per family) is not articulating normally. Pt denies fever, chills, nausea, vomiting, CP, SOB, numbness, tingling but admits to weakness in b/l LE. <Angel Mendoza - Last Filed: 08/31/17 02:55> - General Chief Complaint: Weakness Stated Complaint: CVA Time Seen by Provider: 08/30/17 23:35 tPA Exclusion Checklist 0-3hr - Time Elapsed Date last known well: 08/30/17 Time last known well: 23:15 Elaspsed time: Day(s) and 3 Hour(s) and 39 Minutes - Thrombolytic Therapy Candidate Is the patient eligible for Thrombolytic Therapy?: Yes - Exclusion Criteria 0-3hr SBP greater than 185 or DBP greater than 110mmHg despite tx: No Recent IC/spinal surgery,head trauma or stroke w/in last 3mo: No Hx of previous IC hemorrhage, IC neoplasm, AVM or aneurysm: Yes Active internal bleeding: No Blding diathesis(low plt ct, inc PTT,INR>1.7 or use of NOAC): No Symptoms suggest subarachnoid hemorrhage: No CT demonstrates multilobar infarct(>1/3 cerebral hemiphere): No Arterial puncture at noncompressible site in previous 7 days: No Blood glucose concentration less than 50mg/dL (2.7mmol/L): No - Ineligibility reason(s) Reasons No tPA given: See reason(s) noted above <Angel Mendoza - Last Filed: 08/31/17 02:55> NIH Stroke Scale - Last Known Well Date/Time & Onset Date Last Known Well: 08/30/17 Time Last Known Well: 23:15 - Initial Evaluation Level of consciousness: Alert Ask patient the month and their age: Answers both correctly Ask patient to open & close eyes; make fist and let go: Obeys both correctly Best gaze (horizontal eye movement): Normal Visual field testing: No visual field loss Facial paresis (Show teeth/raise eyebrows/close eyes tight): Normal symmetrical movement Motor Function: Left Arm: Normal Motor Function: Right Arm: Normal (extends arm 90 (or 45) degrees for 10 seconds without drift Motor Function: Left Leg: Normal (extends leg 30 degrees for 5 seconds without drift) Motor Function: Right Leg: Normal (extends leg 30 degrees for 5 seconds without drift) Limb Ataxia: No ataxia Sensory(Use pinprick test arms,legs,trunk,face/side to side): Normal Best language (Describe picture, name items, read sentences): No Aphasia Dysarthria (read several words): Mild to moderate slurring of words Extinction and Inattention: No abnormality - Total Score NIH Stroke Scale Score: 1 <Angel Mendoza - Last Filed: 08/31/17 02:55> Past History <Stephan Encarnacion - Last Filed: 08/31/17 01:40> - Past Medical History Cardiac Disorders: Yes (mitral valve regurgitation) CVA: Yes (NO RESIDUAL WEAKNESS.) COPD: No Diabetes: Yes (pre diabetic) HTN: Yes Hypercholesterolemia: Yes - Surgical History Abdominal Surgery: Yes (exploratory lap?) Appendectomy: Yes Neurologic Surgery: Yes (brain annurysm) Orthopedic Surgery: Yes (L. Shoulder, R. Knee) - Immunization History Immunization Up to Date: Yes - Suicide/Smoking/Psychosocial Hx Smoking Status: No Smoking History: Never smoked Have you smoked in the past 12 months: No Number of Cigarettes Smoked Daily: 0 Cigars Per Day: 0 Hx Alcohol Use: No Drug/Substance Use Hx: No Substance Use Type: None Hx Substance Use Treatment: No <Angel Mendoza - Last Filed: 08/31/17 02:55> - Past Medical History Allergies/Adverse Reactions: Allergies Allergy/AdvReac Type Severity Reaction Status Date / Time No Known Allergies Allergy Verified 06/06/17 17:47 Home Medications: Ambulatory Orders Albuterol Sulfate Inhaler - [Ventolin HFA Inhaler -] 1 - 2 inh PO Q4H #1 inhaler 06/06/17 Amlodipine Besylate 5 mg PO ASDIR 06/06/17 Gabapentin 300 mg PO ASDIR 06/06/17 Lisinopril [Zestril] 2.5 mg PO ASDIR 06/06/17 Loratadine 10 mg PO ASDIR 06/06/17 Metoprolol Succinate 50 mg PO ASDIR 06/06/17 Montelukast Sodium [Singulair] 10 mg PO HS #30 tablet 06/06/17 Review of Systems - Review of Systems Able to Perform ROS?: Yes Comments:: 08/31/17 01:43 GENERAL/CONSTITUTIONAL: Positive for generalized weakness. No fever or chills. HEAD, EYES, EARS, NOSE AND THROAT: No change in vision. No ear pain or discharge. No sore throat. CARDIOVASCULAR: No chest pain, palpitations, or lightheadedness. RESPIRATORY: No cough, wheezing, shortness of breath, or hemoptysis. GASTROINTESTINAL: No nausea, vomiting, diarrhea, constipation, or abdominal pain. GENITOURINARY: No dysuria, frequency, hematuria, or change in urination. MUSCULOSKELETAL: No joint or muscle swelling or pain. No neck or back pain. SKIN: No rash or lesions. NEUROLOGIC: Positive for headache and b/l arm weakness. No numbness, tingling, loss of consciousness, or change in strength/sensation. ENDOCRINE: No increased thirst. No abnormal weight change. HEMATOLOGIC/LYMPHATIC: No anemia, easy bleeding, or history of blood clots. ALLERGIC/IMMUNOLOGIC: No hives or skin allergy. Is the patient limited Citizen Of [place] proficient: No <Angel Mendoza - Last Filed: 08/31/17 02:55> *Physical Exam - Physical Exam Comments: 08/31/17 01:44 GENERAL: Well developed, well nourished. Awake and alert. No acute distress. HEENT: Normocephalic, atraumatic. Hearing grossly normal. Moist mucous membranes. PERRLA, EOMI. No conjunctival pallor. Sclera are non-icteric. Oropharynx is clear. NECK: Supple. Full ROM. CARDIOVASCULAR: Regular rate and rhythm. No murmurs, rubs, or gallops. PULMONARY: No evidence of respiratory distress. Lungs clear to auscultation bilaterally. No wheezing, rales or rhonchi. ABDOMINAL: Soft. Non-tender. Non-distended. No rebound or guarding. GENITOURINARY: No CVA tenderness bilaterally. MUSCULOSKELETAL: Normal range of motion at all joints. No bony deformities or tenderness. EXTREMITIES: No cyanosis. No clubbing. No edema. No calf tenderness or swelling. SKIN: Warm and dry. Normal capillary refill. No rashes. No jaundice. NEUROLOGICAL: Alert, awake, appropriate. Cranial nerves 2-12 intact. No deficits to light touch and temperature in face, upper extremities and lower extremities. No motor deficits in the in face, upper extremities and lower extremities. Finger to nose slightly abnormal bilaterally. Normal speech. Gait is normal without ataxia. PSYCHIATRIC: Cooperative. Good eye contact. Appropriate mood and affect. <Angel Mendoza - Last Filed: 08/31/17 02:55> Heart Score/ECG Review #1 General ECG Interpretation: Sinus Rhythm, Normal Rate, Normal Intervals, No acute ischemic changes Compared to previous ECG there are: No significant change 08/31/17 01:45 NSR Vent rate 65 QRS 90 QTc 461 No ELSA or STD noted No acute ischemic changes noted <Angel Mendoza - Last Filed: 08/31/17 02:55> ED Treatment Course - LABORATORY CBC & Chemistry Diagram: 08/31/17 00:12 08/31/17 00:12 - ADDITIONAL ORDERS Additional order review: Laboratory Results 08/31/17 08/31/17 00:12 00:12 PT with INR 11.10 INR 0.98 Sodium 145 Potassium 3.6 Chloride 107 Carbon Dioxide 29 Anion Gap 9 BUN 13 Creatinine 0.9 Creat Clearance w eGFR > 60 Random Glucose 91 Calcium 8.7 Total Bilirubin 0.3 D AST 27 ALT 27 Alkaline Phosphatase 60 Creatine Kinase 607 H Troponin I < 0.02 Total Protein 7.9 Albumin 3.9 Triglycerides 98 Cholesterol 143 Total LDL Cholesterol 33 HDL Cholesterol 97 H 08/31/17 00:12 RBC 4.16 MCV 91.2 MCHC 32.4 RDW 14.0 MPV 9.9 Neutrophils % 54.5 Lymphocytes % 35.1 Monocytes % 9.1 Eosinophils % 0.8 Basophils % 0.5 <Stephan Encarnacion - Last Filed: 08/31/17 01:40> - LABORATORY CBC & Chemistry Diagram: 08/31/17 00:12 08/31/17 00:12 - ADDITIONAL ORDERS Additional order review: 08/31/17 00:12 RBC 4.16 MCV 91.2 MCHC 32.4 RDW 14.0 MPV 9.9 Neutrophils % 54.5 Lymphocytes % 35.1 Monocytes % 9.1 Eosinophils % 0.8 Basophils % 0.5 - RADIOLOGY Radiology Studies Ordered: Category Date Time Status HEAD CT (STROKE) [CT] Stat CT Scan 08/30/17 23:35 Taken <Angel Mendoza - Last Filed: 08/31/17 02:55> Medical Decision Making - Medical Decision Making 08/31/17 01:46 The patient is a 66F with a PMH of intracranial hemorrhage who presents to the ER with complaints of a headache, weakness in b/l UE, and dizziness. The patient states that this happened acutely and is associated with nausea and vomiting. I did appreciate some mild but resolved weakness from initial exam on EMS stretcher to post-CT exam. Due to her history and mild slurred speech, I called a mariah orozco and protocol was followed. Labs negative. Will discuss pt with neurology. Contraindications to TPA are previous intracranial hemorrhoage and resolving symptoms. Will discuss with neurology. Likely admission for CVA/TIA workup. CT read indicates no acute intracranial hemorrhage. Pt is on monitor and will be followed closely. 08/31/17 02:30 Neurology paged x2. 08/31/17 02:36 Dr. Brown agrees to not TPA as this story is most likely vertigo. He will see pt in the inpatient setting. 08/31/17 02:54 I have endorsed the patient to Dr. Mcclain. <Angel Mendoza - Last Filed: 08/31/17 02:55> *DC/Admit/Observation/Transfer <Stephan Encarnacion - Last Filed: 08/31/17 01:40> - Discharge Dispostion Decision to Admit order: Yes <Angel Mendoza - Last Filed: 08/31/17 02:55> Diagnosis at time of Disposition: CVA (cerebral vascular accident) Qualifiers: CVA mechanism: unspecified Qualified Code(s): I63.9 - Cerebral infarction, unspecified - Discharge Dispostion Condition at time of disposition: Stable - Referrals Referrals: Kalee Caceres MD [Primary Care Provider] - - Patient Instructions - Post Discharge Activity
[2017-08-31] MEDS ORDERED: ACETAMINOPHEN 1000 MG/100 ML VIAL (NON FORMULARY) IVPB ONE (01:09)
[2017-08-31 01:10] LABS: ALBUMIN 3.9 g/dl (3.4-5.0); ALK PHOS 60 U/L (45-117); ANION GAP 9 (8-16); BILIRUBIN,TOTAL 0.3 mg/dL (0.2-1.0); BLOOD UREA NITROGEN 13 mg/dL (7-18); CALCIUM 8.7 mg/dL (8.5-10.1); CHLORIDE 107 mmol/L (98-107); CHOLESTEROL 143 mg/dL (50-200); CO2 29 mmol/L (21-32); CREATININE 0.9 mg/dL (0.55-1.02); GLUCOSE,RANDOM 91 mg/dL (74-106); HDL CHOLESTEROL 97 mg/dL (40-60); POTASSIUM 3.6 mmol/L (3.5-5.1); SGOT/AST 27 U/L (15-37); SGPT/ALT 27 U/L (12-78); SODIUM 145 mmol/L (136-145); TOT PROT 7.9 g/dl (6.4-8.2); TRIGLYCERIDES 98 mg/dL (35-160)
[2017-08-31] MEDS ORDERED: ACETAMINOPHEN INJECTION 100 ML IVPB ONE (02:41)
[2017-08-31] MEDS ORDERED: SODIUM CHLORIDE 1,000 ML IV SCH ×2 (03:00→04:00)
--- NOTE | 2017-08-31 03:40 | HP ---
CHIEF COMPLAINT: dizziness HISTORY OF PRESENT ILLNESS: 66 year old female with a history of hemorrhagic stroke in 2016, HTN, HLD, CVA, brain aneurysm, and osteoarthritis presented to the hospital for dizziness, nausea, vomiting, and headache that began earlier this evening around 11pm directly after her niece's graduation democr[employer]. She states that they had pizza at this democrat and she drank a "tablespoon" of wine. As she was leaving the democrat the patient reports she started feeling dizzy, lightheaded, and had 2 episodes of nausea/vomiting (non-bloody/non-bilious). During this episode she needed to sit down and felt chills as well as generalized weakness. Currently, patient states that she does not have any of those symptoms and just feels tired and would like to sleep. She states that her generalized weakness has resolved. Denies chest pain, SOB, abdominal pain, n/v/d, fevers, chills. ER course was notable for: (1) LDL 33 (2) CT head negative (3) Recent Travel: none PAST MEDICAL HISTORY: Hypertension Hyperlipidemia CVA Right frontal lobe and intraventricular hemorrhage Brain aneurysm Headaches Osteoarthritis Social History: Smoking: never Alcohol: social Drugs: none Allergies No Known Allergies Allergy (Verified 06/06/17 17:47) HOME MEDICATIONS: Home Medications Medication Instructions Recorded Albuterol Sulfate Inhaler - 1 - 2 inh PO Q4H #1 inhaler 06/06/17 [Ventolin HFA Inhaler -] Amlodipine Besylate 5 mg PO ASDIR 06/06/17 Gabapentin 300 mg PO ASDIR 06/06/17 Lisinopril [Zestril] 2.5 mg PO ASDIR 06/06/17 Loratadine 10 mg PO ASDIR 06/06/17 Metoprolol Succinate 50 mg PO ASDIR 06/06/17 Montelukast Sodium [Singulair] 10 mg PO HS #30 tablet 06/06/17 REVIEW OF SYSTEMS CONSTITUTIONAL: Absent: fever, chills, diaphoresis, generalized weakness, malaise, loss of appetite, weight change HEENT: Absent: rhinorrhea, nasal congestion, throat pain, throat swelling, difficulty swallowing, mouth swelling, ear pain, eye pain, visual changes CARDIOVASCULAR: Absent: chest pain, syncope, palpitations, irregular heart rate, lightheadedness , peripheral edema RESPIRATORY: Absent: cough, shortness of breath, dyspnea with exertion, orthopnea, wheezing, stridor, hemoptysis GASTROINTESTINAL: Absent: abdominal pain, abdominal distension, nausea, vomiting, diarrhea, constipation, melena, hematochezia GENITOURINARY: Absent: dysuria, frequency, urgency, hesitancy, hematuria, flank pain, genital pain MUSCULOSKELETAL: Absent: myalgia, arthralgia, joint swelling, back pain, neck pain SKIN: Absent: rash, itching, pallor HEMATOLOGIC/IMMUNOLOGIC: Absent: easy bleeding, easy bruising, lymphadenopathy, frequent infections ENDOCRINE: Absent: unexplained weight gain, unexplained weight loss, heat intolerance, cold intolerance NEUROLOGIC: Absent: headache, focal weakness or paresthesias, dizziness, unsteady gait, seizure, mental status changes, bladder or bowel incontinence PSYCHIATRIC: Absent: anxiety, depression, suicidal or homicidal ideation, hallucinations. PHYSICAL EXAMINATION GENERAL: A&Ox3, no acute distress EYES: PERRLA, EOMI ENT: Moist mucus membranes NECK: No JVD LUNGS: CTA, no wheezes HEART: RRR, systolic murmur noted on exam ABDOMEN: Soft, nontender, BS present MUSCULOSKELETAL: No CVA Tenderness EXTREMITIES: 2+ pulses, no edema. NEUROLOGICAL: Cranial nerves II-XII intact. No dysmetria, no motor or sensory deficits, gait not observed Laboratory Results - last 24 hr 08/31/17 08/31/17 08/31/17 00:12 00:12 00:12 WBC 5.7 D RBC 4.16 Hgb 12.3 Hct 37.9 MCV 91.2 MCH 29.6 MCHC 32.4 RDW 14.0 Plt Count 266 MPV 9.9 Neutrophils % 54.5 Lymphocytes % 35.1 Monocytes % 9.1 Eosinophils % 0.8 Basophils % 0.5 PT with INR 11.10 INR 0.98 Sodium 145 Potassium 3.6 Chloride 107 Carbon Dioxide 29 Anion Gap 9 BUN 13 Creatinine 0.9 Creat Clearance w eGFR > 60 Random Glucose 91 Calcium 8.7 Total Bilirubin 0.3 D AST 27 ALT 27 Alkaline Phosphatase 60 Creatine Kinase 607 H Creatine Kinase Index 0.7 CK-MB (CK-2) 4.289 H Troponin I < 0.02 Total Protein 7.9 Albumin 3.9 Triglycerides 98 Cholesterol 143 Total LDL Cholesterol 33 HDL Cholesterol 97 H ASSESSMENT/PLAN: 66 year old F with a hx of hemorrhagic stroke in 2016, HTN, HLD, CVA, brain aneurysm, and osteoarthritis presented to the hospital for dizziness, nausea, vomiting, and headache suspicious for vertigo but r/o TIA/CVA #Rule out CVA/TIA: patient is currently asymptomatic with an NIH stroke scale of 0-1, will r/o etiologies for stroke; dizziness has resolved, patient only endorses feeling tired - could be a component of vertigo -EKG NSR QTc 461 -echocardiogram ordered -carotid duplex ordered -lipid panel normal, LDL 33, T. cholesterol 143 -cardiac monitoring -neuro consult Dr. Brown appreciated -keep NPO for now -speech swallow consult appreciated (Judi Corral) -physical therapy -fluids @ 100cc/hr #Hypertension: patient's blood pressure is low currently at 99/42 -hold antihypertensives for now -give fluids NS @ 100cc/hr and recheck BP - hold fluids if BP normalized #FEN NS @ 100cc/hr - hold if BP normalizes Replete lytes in AM as necessary NPO until speech/swallow evaluation #Prophylaxis -SCDs #Disposition -admit tele obs Visit type - Emergency Visit Emergency Visit: Yes ED Registration Date: 08/31/17 Care time: The patient presented to the Emergency Department on the above date and was hospitalized for further evaluation of their emergent condition. - New Patient This patient is new to me today: Yes Date on this admission: 08/31/17 - Critical Care Critical Care patient: No Hospitalist Screening - Colonoscopy Questionnaire Colonoscopy Questionnaire: Colonoscopy Questionnaire - Patient: 50 - 75 years old and never had a screening colonoscopy: Unknown History of colon or rectal polyps, or CA: Unknown History of IBD, Crohn's disease or UC: Unknown History of abdominal radiation therapy as a child: Unknown - Relative: 1 with colon or rectal CA, or polyps at age 60 or younger: Unknown Colon or rectal CA diagnosed at age 45 or younger: Unknown Multiple relatives with colon or rectal CA: Unknown - Outcome: Screening Result: Negative Screen
[2017-08-31 04:51] VITALS: BMI 32.9
--- NOTE | 2017-08-31 05:29 | PN ---
Teaching Attending Note Name of Resident: Joshua Grier ATTENDING PHYSICIAN STATEMENT I saw and evaluated the patient. Chart, data, imaging reviewed. I reviewed the resident's note and discussed the case with the resident. I agree with the resident's findings and plan as documented. SUBJECTIVE: 66 year old woman with pmhx of hemorrhagic stroke in 2016, HTN, HLD, CVA, brain aneurysm, and osteoarthritis c/o lightheadedness, nausea, vomiting, and headache which started at 11pm on 08/30/17 after her nieces graduation libertarian. Patient was not undergoing any major exertion during this time. She denied any focal weaknesses or loss of sensation. Headache was mild and not similar to that associated with her hemorrhagic stroke in 2016. Neurology cnc applications engineer was contacted- Dr. Crandall, decision not give tpa was made. OBJECTIVE: Last Vital Signs Temp Pulse Resp BP Pulse Ox 97.8 F 61 17 136/70 96 08/31/17 04:36 08/31/17 04:55 08/31/17 04:36 08/31/17 04:55 08/31/17 04:36 general -nad, aaox3 heent- at, nc cv-s1+s2+rrr chest- clear breath sounds b/l neuro- CN 3-12 grossly intact, no focal motor deficits on upper and lower extremities skin- no rashes appreciated Abnormal Lab Results 08/31/17 00:12 Creatine Kinase 607 H CK-MB (CK-2) 4.289 H HDL Cholesterol [address] -no acute intracranial infarcts or bleeds. ekg- nsr ASSESSMENT AND PLAN: 66yo woman with presyncope, headache. Head CT negative for acute findings. Less likely to be CVA. TIA? Neurology is aware of case. -tele/observation -neuro checks q 4hrs -no antiplatelet drugs at this time -statin -TTE -carotid duplex b/l -consider repeat head CT -neurology consult -NPO -speech and swallow evaluation -PT for gait assessment -fall precautions -DVT ppx -ICDs
[2017-08-31 06:16] LABS: URINE APPEARANCE SLCLOUDY; URINE BILIRUBIN NEGATIVE (<2.0 mg/dL); URINE COLOR YELLOW; URINE GLUCOSE (UA) NEGATIVE (NEGATIVE); URINE KETONE NEGATIVE (NEGATIVE); URINE LEUK ESTERASE NEGATIVE (NEGATIVE); URINE NITRITE NEGATIVE (NEGATIVE); URINE PROTEIN NEGATIVE (NEGATIVE); URINE UROBILINOGEN NEGATIVE mg/dL (0.2-1.0)
[2017-08-31 07:23] LABS: HEMATOCRIT 33.6 % (32.4-45.2); HEMOGLOBIN 11.4 GM/dL (10.7-15.3); MCH 30.5 pg (25.7-33.7); MCHC 33.9 g/dl (32.0-36.0); MEAN PLT VOLUME 10.2 fl (7.5-11.1); PLATELET COUNT 269 K/MM3 (134-434); RBC 3.74 M/mm3 (3.60-5.2); RDW 13.6 % (11.6-15.6); WHITE BLOOD COUNT 6.4 K/mm3 (4.0-10.0)
[2017-08-31 08:11] LABS: ANION GAP 6 (8-16); BLOOD UREA NITROGEN 13 mg/dL (7-18); CALCIUM 8.7 mg/dL (8.5-10.1); CHLORIDE 106 mmol/L (98-107); CO2 29 mmol/L (21-32); GLUCOSE,RANDOM 89 mg/dL (74-106); MAGNESIUM 2.6 mg/dL (1.8-2.4); POTASSIUM 4.3 mmol/L (3.5-5.1); SODIUM 141 mmol/L (136-145)
[2017-08-31 08:12] LABS: CREATININE 0.7 mg/dL (0.55-1.02); PHOSPHOROUS 5.1 mg/dL (2.5-4.9)
--- NOTE | 2017-08-31 08:41 | CON.NEURO ---
Consult - History of Present Illness History of Present Illness: 66 year old female with a history of hemorrhagic stroke in 2016, HTN, HLD, CVA, brain aneurysm, and osteoarthritis presented to the hospital for dizziness, nausea, vomiting, and headache that began around 11pm on 08/30/17 directly after her niece's graduation constitution party. She states that they had pizza at this constitution party and she drank a "tablespoon" of wine. As she was leaving the constitution party the patient reports she started feeling dizzy, lightheaded, and had 2 episodes of nausea/vomiting (non-bloody/non-bilious). During this episode she needed to sit down and felt chills as well as generalized weakness. Currently, patient states that she does not have any of those symptoms and just feels tired and would like to sleep. She states that her generalized weakness has resolved. Denies chest pain, SOB, abdominal pain, n/v/d, fevers, chills. CT HD Impression: No evidence of acute intracranial hemorrhage, edema, hydrocephalus. No CT evidence of acute territorial ischemic changes. Post hemorrhagic right frontal lobe encephalomalacia. Moderate supratentorial chronic white matter microangiopathic ischemic changes, gliosis. - Past Medical History PHOTO TECH: Yes: CVA, Other (encephalopathy) Cardio/Vascular: Yes: HTN - Alcohol/Substance Use Hx Alcohol Use: No - Smoking History Smoking history: Never smoked Have you smoked in the past 12 months: No Aproximately how many cigarettes per day: 0 - Social History Usual Living Arrangement: With Child ADL: Independent History of Recent Travel: No Home Medications - Allergies Allergies/Adverse Reactions: Allergies Allergy/AdvReac Type Severity Reaction Status Date / Time No Known Allergies Allergy Verified 06/06/17 17:47 - Home Medications Home Medications: Ambulatory Orders Albuterol Sulfate Inhaler - [Ventolin HFA Inhaler -] 1 - 2 inh PO Q4H #1 inhaler 06/06/17 Amlodipine Besylate 5 mg PO ASDIR 06/06/17 Gabapentin 300 mg PO ASDIR 06/06/17 Lisinopril [Zestril] 2.5 mg PO ASDIR 06/06/17 Loratadine 10 mg PO ASDIR 06/06/17 Metoprolol Succinate 50 mg PO ASDIR 06/06/17 Montelukast Sodium [Singulair] 10 mg PO HS #30 tablet 06/06/17 Physical Exam-Neuro Vital Signs: Vital Signs Temperature 97.8 F 08/31/17 04:36 Pulse Rate 61 08/31/17 04:55 Respiratory Rate 17 08/31/17 04:36 Blood Pressure 136/70 08/31/17 04:55 O2 Sat by Pulse Oximetry (%) 96 08/31/17 04:36 Labs: CBC, BMP 08/31/17 06:04 08/31/17 06:04 INR, PTT INR 0.98 (0.82-1.09) 08/31/17 00:12 Problem List - Problems (1) CVA (cerebral vascular accident) Code(s): I63.9 - CEREBRAL INFARCTION, UNSPECIFIED Qualifiers: CVA mechanism: unspecified Qualified Code(s): I63.9 - Cerebral infarction, unspecified (2) Headache Code(s): R51 - HEADACHE Assessment/Plan 66 year old female with a history of hemorrhagic stroke in 2016, HTN, HLD, CVA, brain aneurysm, and osteoarthritis presented to the hospital for dizziness, nausea, vomiting, and headache that began around 11pm on 08/30/17 directly after her niece's graduation constitution party. She states that they had pizza at this constitution party and she drank a "tablespoon" of wine. As she was leaving the constitution party the patient reports she started feeling dizzy, lightheaded, and had 2 episodes of nausea/vomiting (non-bloody/non-bilious). During this episode she needed to sit down and felt chills as well as generalized weakness. Currently, patient states that she does not have any of those symptoms and just feels tired and would like to sleep. She states that her generalized weakness has resolved. Denies chest pain, SOB, abdominal pain, n/v/d, fevers, chills. CT HD Impression: No evidence of acute intracranial hemorrhage, edema, hydrocephalus. No CT evidence of acute territorial ischemic changes. Post hemorrhagic right frontal lobe encephalomalacia. Moderate supratentorial chronic white matter microangiopathic ischemic changes, gliosis.
--- NOTE | 2017-08-31 10:18 | CONSULT ---
Admitting History and Physical - Primary Care Physician PCP: Felicita An - Admission History of Present Illness: Per EMR: - History of Present Illness History of Present Illness: 66 year old female with a history of hemorrhagic stroke in 2016, HTN, HLD, CVA, brain aneurysm, and osteoarthritis presented to the hospital for dizziness, nausea, vomiting, and headache that began around 11pm on 08/30/17 directly after her niece's graduation [employer]. She states that they had pizza at this democr[employer] and she drank a "tablespoon" of wine. As she was leaving the democrat the patient reports she started feeling dizzy, lightheaded, and had 2 episodes of nausea/vomiting (non-bloody/non-bilious). During this episode she needed to sit down and felt chills as well as generalized weakness. Currently, patient states that she does not have any of those symptoms and just feels tired and would like to sleep. She states that her generalized weakness has resolved. Denies chest pain, SOB, abdominal pain, n/v/d, fevers, chills. 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 No CT evidence of acute territorial ischemic changes. Post hemorrhagic right frontal lobe encephalomalacia. Moderate supratentorial chronic white matter microangiopathic ischemic changes, gliosis.) - General Mental Status: Alert and Oriented, Awake and Alert, Able to Follow Commands Attention: Intact Ability to Follow Directions: Excellent Head/Neck Control: WFL - Hearing Hearing: Normal Speech Evaluation - Communication Primary Language: BARBADIAN Communication: Yes: Within Normal Limits Oral Expression Ability: Yes: No Impairment - Speech Production Able to Make Needs Known: Yes: WNL Intelligibility: Yes: WNL - Speech Characteristics Voice Loudness: Normal Voice Pitch: Yes: Normal Voice Phonatory-based Quality: Yes: Normal Speech Pattern: Normal Speech Clarity: < 100% Nasal Resonance: Normal Articulation: Yes: Precise - Language/Auditory Comprehension Follows: Yes: 2 Stage Simple Commands - Language/Verbal Expression Able to Respond to Simple Queries: Yes: WNL Able to Communicate Wants and Needs: Yes: WNL Functional Communication Status: Yes: WNL - 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: 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 Short Term Memory: Yes: WNL - Swallow Evaluation/Bedside Assessment Current Nutritional Intake: NPO Oral Secretions: Yes: WFL Dentition: Yes: Adequate Facial Symmetry at Rest: Facial Droop Left (slight at rest) Facial Symmetry on Retraction: Symmetrical Facial Movement: Controlled Sensation: Normal Against Resistance Opening: Normal Against Resistance Closing: Normal Pucker Lips: Normal Smile: Normal Lingual Movement: Normal, Symmetric Lingual Speed of Movement: Normal Lingual Movement Strgth Against Opposition: Normal Lingual Movement Characteristics: Normal Velopharyngeal Movement: Normal Laryngeal Elevation: WFL Laryngeal Movement: Able to Palpate Rate of Intake: WFL Bolus Size: WFL Labial Seal: WFL Chewing: WFL Oral Prep Time: WFL A-P Transit: WFL Pocketing: None Timing of Swallow: WFL Coughing/Throat Clear: No Change in Voice: No Recommendations - Speech Evaluation, Impression/Plan Impression: Speech production, language function, cognition, swallowing all seem intact. Slight left facial at rest - Dysphagia Impressions/Plan Swallowing Skills: WF Dysphagia Impressions: No Impairment *Silent aspiration: cannot be R/O at bedside - Recommendations Diet Consistency: Regular Medication Administration: Whole with water Liquids: Thin Liquids
--- NOTE | 2017-08-31 11:07 | EKG ---
Test Reason : Blood Pressure : / mmHG Vent. Rate : 065 BPM Atrial Rate : 065 BPM P-R Int : 208 ms QRS Dur : 090 ms QT Int : 444 ms P-R-T Axes : 068 062 049 degrees QTc Int : 461 ms NORMAL SINUS RHYTHM POSSIBLE LEFT ATRIAL ENLARGEMENT WHEN COMPARED WITH ECG OF 16-JUL-2016 03:03, NO SIGNIFICANT CHANGE WAS FOUND Confirmed by JSOÉ MIGUEL VALDES MD ([id number]) on 08/31/2017 11:06:39 AM Referred By: Confirmed By:JOSÉ MIGUEL VALDES MD
--- NOTE | 2017-08-31 14:34 | MSN ---
Progress Note (short form) - Note Progress Note: SUBJECTIVE: Ms. Yang is a 66 yr old female with history of a right frontal lobe intra-cranial hemorrhage (2016), brain aneurysm, headaches, HTN, HLD, osteoarthritis, and diabetes mellitus who presented to the ED after an episode of lightheadness and weakness. She was leaving her niece's graduation alliance party when she began to feel lightheaded. She sat down and experienced 3 episodes of non-bloody, non-bilious vomiting. She also endorsed bilateral arm weakness, worse on the right, shaking/chills and slurred speech. EMS was called. On arrival at ED patient continued to have slurred speech. A code orozco was called. Physical exam after CT scan noted resolution of patient's symptoms and return to baseline. Patient denies loss of consciousness, chest pain, SOB, palpitations, or abdominal pain. In ED, aspirin withheld due to history of hemorrhagic stroke. Patient was initially mildly hypotensive (94/60) and was given 1 liter of IV NS. Symptoms resolved. Head CT did not demonstrate acute intra-cranial pathology. Patient received APAP 1000 mg IV for headache. EKG demonstrated 1st degree AV block without ST or T-wave changes. Overnight, vital signs stable. No events on quality assurance monitor chassis. This morning Ms. Yang states that she feels well and wants to leave later today. She complains only of a mild generalized headache. She denies changes in vision, lightheadedness, neck stiffness, dysphagia, chest pain, SOB, N/V, or difficulties ambulating. OBJECTIVE: Vital Signs Period Temp Pulse Resp BP Sys/Coronel Pulse Ox Last 24 Hr 97.8 F-97.9 F 60-67 12-18 94-151/44-88 96-100 GENERAL: Well-dressed, well-appearing woman seated in bed in no acute distress. Awake, alert, and orientated. HEAD: Normal without evidence of trauma. EYES: No conjunctival pallor. Sclera anicteric. Extra-ocular muscles intact. Pupils equal round and reactive to light. MOUTH/PHARYNX: No lesion or plaques. No tonsilar exudates or erythema. Uvula midline. NECK: No jugular venous distention. No carotid bruits. No lymphadenopathy. Supple. LUNGS: Clear to auscultation bilaterally. No wheezes or crackles. HEART: Regular at 60 bpm. +S1/S2. No murmurs, rubs or gallops. PMI non- displaced. ABDOMEN: Mid-line scar. RLQ scar. Normoactive bowel sounds. Globular. Soft, non- distended, non-tender. No rebound or guarding. No palpable masses. EXTREMITIES: 2 + DP pulses b/l. No nail clubbing or skin changes. NEURO: CN II-XII intact. No facial droop. Normal speech. 5/5 muscle strength throughout. Sensation intact. 2/4 biceps and brachioradialis reflex b/l. No pronator drift. PSYCH: Pleasant. Cooperative. Appropriate mood and affect. CBC, BMP 08/31/17 06:04 08/31/17 06:04 Troponin, BNP 08/31/17 08/31/17 00:12 12:20 Troponin I < 0.02 < 0.02 Abnormal Lab Results 08/31/17 08/31/17 08/31/17 00:12 06:04 08:00 Anion Gap 6 L Phosphorus 5.1 H Magnesium 2.6 H Creatine Kinase 607 H CK-MB (CK-2) 4.289 H HDL Cholesterol 97 H 86 H 08/31/17 12:20 Anion Gap Phosphorus Magnesium Creatine Kinase 486 H CK-MB (CK-2) 3.901 H HDL Cholesterol Home Medications Medication Instructions Recorded Amlodipine Besylate 5 mg PO DAILY 06/06/17 Gabapentin 300 mg PO TID 06/06/17 Loratadine 10 mg PO DAILY PRN 06/06/17 Metoprolol Succinate 50 mg PO DAILY 06/06/17 Metformin HCl 500 mg PO DAILY 08/31/17 IMAGING: EKst degree AV block; no ST or T-wave changes. No change compared to prior. CXR: No evidence of acute intracranial hemorrhage or edema. Post-hemorrhagic right frontal lobe encephalomalacia. Moderate chronic white matter microangiopathic ischemic changes. Carotid doppler: No hemodynamically significant stenosis. Echocardiogram: Ejection fraction 55-60%. Mild mitral regurg. No pericardial effusion. ASSESSMENT/PLAN: Ms. Yang is a 66 yr old female with history of a right frontal lobe intra- cranial hemorrhage (2016), brain aneurysm, headaches, HTN, HLD, osteoarthritis, and diabetes mellitus who presented to the ED after an episode of lightheadedness and weakness associated with b/l arm weakness, nausea/vomiting, and slurred speech and was found to be mildly hypotensive. #Lightheadedness/generalized weakness-likely 2/2 to vasovagal pre-syncope with full resolution of symptoms -Consider possibility of TIA -CT head negative for acute intra-cranial pathologies; No significant carotid stenosis -Neurology consulted -Patient initially mildly hypotensive- given IV NS- now hypertensive #Hypertension -Resume home medications: Amlodipine 5 mg QD and metoprolol succinate 50 mg QD -Discontinue IV fluids #Headache -Continue home medication: Gabapentin 300 mg TID #Diabetes Mellitus -Resume metformin 500 mg QD on discharge #Dispo -Discharge home with outpatient PCP follow-up and current home medication regimen
--- NOTE | 2017-08-31 15:50 | PN ---
Teaching Attending Note Name of Resident: Joshua Thibodeaux ATTENDING PHYSICIAN STATEMENT I saw and evaluated the patient. I reviewed the resident's note and discussed the case with the resident. I agree with the resident's findings and plan as documented. SUBJECTIVE: no fever or chills . has mild chronic STOUT. No change form before. has chronic back and hip and knee and shoulder pains with no changes. no change in vision . No weakness, numbness or tingling , no N/V OBJECTIVE: NAD , AAOx3 CV: RRR, 2/6 SM at base . Lungs CTAB Ext: no edema MMM. Neuro: EOMI, round left pupil, deformed R pupil. no facial droop, tongue at mid line. Nl facial sensation . strength 5/5 in upper and lower extremities , proximally and distally. sensation to light touch NL. reflexes 1+ knee jerk and biceps b/l. ASSESSMENT AND PLAN: 66 y/o lady with h/o chronci STOUT , hemorrhagic stroke, HTn, H, brain aneurysm who presented with N/V/and light headedness 1- Presyncope: might be due to vasovagal stimulation. Nl neuro exam, no Nausea any more, no STOUT , and no CT scan evidence of bleed. EKG with no acute ischemic changes, and trop nl x 2 echo and CUS with no significant pathology tele with no events 2- cont home meds for chronic STOUT , and other conditions dc home
[2017-08-31 16:05] VITALS: BP 127/53; PULSE 71; TEMP 98.1
--- NOTE | 2017-09-07 08:50 | DS ---
Physical Exam: SUBJECTIVE: No overnight events noted. No events on telemetry of significance. Pt reports having a generalized headache which is typical of her usual headaches. She is requesting tylenol PO. Otherwise pt denies changines in vision , current lightheadedness, neck stiffness, dysphagia, chest pain, SOB, N/V, or difficulties ambulating. OBJECTIVE: PHYSICAL EXAM GENERAL: NAD, awake, alert, and fully oriented HEENT: EOMI, DEVIKA, no nystagmus, sclera anicteric, moist mucosa LUNGS: CTA bilaterally, no wheezes, no crackles, no accessory muscle use. HEART: RRR, S1, S2 with 2/6 systolice ejection murmur at apex ABDOMEN: Soft, nontender, nondistended, normoactive bowel sounds, no guarding, no rebound, no hepatosplenomegaly, no masses. EXTREMITIES: 2+ pulses, warm, well-perfused, no edema. NEUROLOGICAL: CN II through XII grossly intact. Strength 5/5 grossly in upper and lower extremity aspects. Sensation intact throughout. 2/4 patellar reflex. Normal speech, normal gait PSYCH: Normal mood, normal affect. SKIN: Warm, dry, no rashes or lesions noted. LABS HOSPITAL COURSE: Date of Admission:08/31/17 Date of Discharge: 09/07/17 Pt was admitted on 08/31/17 due to feeling lightheaded, nausea, nb/nb vomiting and headache that began in the evening yesterday after her niece's graduation [employer] party. Pt reported eating pizza and drinking wine and then developed some lightheadedness while leaving. while pt was here she had an echocardiogram, carotid duplex, and Head Ct noncontrast which were all unremarkable for acute pathology. Pt's lipid panel was performed which revealed a T. cholesterol of 143 and LDL of 33. Unfortunately pt was found to be hypotensive down to 99/42 and was administered NS @ 100cc/hr while holding her antihypertensive medication. Her hypotension was corrected with IVF and she had her Norvasc 5mg PO reinstated without hemodynamic compromise. Pt is being discharged with diagnosis of vasovagal pre-syncope with instructions to follow-up with her general medical physician. IMAGING REPORTS: Carotid duplex: No hemodynamically significant stenosis Echocardiogram: EF 55-60% with normal LV size and function. Mild MR. Head CT noncontrast No evidence of acute intracranial hemorrhage, edema, hydrocephalus. No acute territorial ischemic changes. Post hemorrhagic R frontal lobe encephalomalacia. Mod supratentorial chronic white matter microangiopathic ischemic changes, gliosis. Minutes to complete discharge: 38 Discharge Summary Reason For Visit: CEREBROVASCULAR ACCIDENT (CVA) Condition: Stable - Instructions Diet, Activity, Other Instructions: You were hospitalized for your lightheadedness that you experienced at your constitution party. Most likely this is vasovagal in nature. Your brain imaging showed that this was not a full stroke and we ruled out any serious causes of this. We also found that you have a very good cholesterol panel and do not need medication for it at this point. Continue to practice good diet control and exercise. MEDICATIONS: We did not change your medications and you should resume them as you have been You should remember to keep hydrated throughout the day and drink water rather than soda or juice Follow-up Please follow-up with Dr. Caceres, your primary care provider about what happened during your admission. Please follow-up with Dr. Brown , the neurologist for your vasovagal syncope. Referrals: Kalee Caceres MD [Primary Care Provider] - Luis M Brown DO [Staff Physician] - Disposition: HOME - Home Medications Comprehensive Discharge Medication List: Ambulatory Orders Amlodipine Besylate 5 mg PO DAILY 06/06/17 Gabapentin 300 mg PO TID 06/06/17 Loratadine 10 mg PO DAILY PRN 06/06/17 Metoprolol Succinate 50 mg PO DAILY 06/06/17 Metformin HCl 500 mg PO DAILY 08/31/17 This patient is new to me today: No Emergency Visit: No Critical Care patient: No - Discharge Referral Referred to [facility] No
== END 2017-08-31 16:30 | disposition home or self-care (01) ==
LOC: JER 23:31 → JERBED 08-31 02:57 → UNDOADMOB 08-31 03:27 → J4S 08-31 04:15
PROVIDERS: ADMIT Internal Medicine; ATTEND Internal Medicine
PROC: 3E033NZ Introduction of Analgesics, Hypnotics, Sedatives into Peripheral Vein, Percutaneous Approach (ICD-10-PCS; principal; 2017-08-31)
PROC: 3E0337Z Introduction of Electrolytic and Water Balance Substance into Peripheral Vein, Percutaneous Approach (ICD-10-PCS; 2017-08-31)
DX: I63.9 Cerebral infarction, unspecified (principal); I10 Essential (primary) hypertension; E78.5 Hyperlipidemia, unspecified; R73.03 Prediabetes; I34.0 Nonrheumatic mitral (valve) insufficiency; Z86.73 Personal history of transient ischemic attack (TIA), and cerebral infarction without residual deficits; Z86.79 Personal history of other diseases of the circulatory system; M19.90 Unspecified osteoarthritis, unspecified site; R51 Headache; R55 Syncope and collapse
CPT/HCPCS: 36415; 70450-TC; 71045-TC-FY; 80048; 80053; 80061; 81003; 82465; 82550; 82553; 83718; 83721; 83735; 84100; 84443; 84478; 84484; 85025; 85027; 85610; 93005; 93010; 93306-TC; 93880-TC; 96374; 99285-25; G0378; J0131; J7030

== ENCOUNTER 2018-07-24 04:09 | Emergency (ER) | payer OTHER ==
--- NOTE | 2018-07-24 04:36 | PDOC ---
History of Present Illness - General Stated Complaint: HEADACHE Time Seen by Provider: 07/24/18 04:35 - History of Present Illness Initial Comments: 07/24/18 04:43 Ms. Yang is a 67 yo female w/ pmh of MVR, HTN, HLD, L brain aneurysm in the past who presents for evaluation of sudden onset L sided headache that woke her from sleep at approximately 3am. Patient gets headaches however usually not this severe. Denies any other symptoms at this time. The patient denies chest pain, shortness of breath, and dizziness. Denies fever , chills, nausea, vomit, diarrhea and constipation. Denies dysuria, frequency, urgency and hematuria. Past History - Past Medical History Allergies/Adverse Reactions: Allergies Allergy/AdvReac Type Severity Reaction Status Date / Time No Known Allergies Allergy Verified 07/24/18 05:06 Home Medications: Ambulatory Orders Amlodipine Besylate 5 mg PO DAILY 06/06/17 Gabapentin 300 mg PO TID 06/06/17 Loratadine 10 mg PO DAILY PRN 06/06/17 Metoprolol Succinate 50 mg PO DAILY 06/06/17 metFORMIN HCL [Metformin HCl] 500 mg PO DAILY 08/31/17 Cardiac Disorders: Yes (mitral valve regurgitation) CVA: Yes (NO RESIDUAL WEAKNESS.) COPD: No Diabetes: Yes (pre diabetic) HTN: Yes Hypercholesterolemia: Yes - Surgical History Abdominal Surgery: Yes (exploratory lap?) Appendectomy: Yes Neurologic Surgery: Yes (brain annurysm) Orthopedic Surgery: Yes (L. Shoulder, R. Knee) - Immunization History Immunization Up to Date: Yes - Suicide/Smoking/Psychosocial Hx Smoking Status: No Smoking History: Never smoked Have you smoked in the past 12 months: No Number of Cigarettes Smoked Daily: 0 Cigars Per Day: 0 Hx Alcohol Use: No Drug/Substance Use Hx: No Substance Use Type: None Hx Substance Use Treatment: No Review of Systems - Review of Systems Comments:: 07/24/18 04:49 GENERAL/CONSTITUTIONAL: No fever or chills. No weakness. HEAD, EYES, EARS, NOSE AND THROAT: No change in vision. No ear pain or discharge. No sore throat. CARDIOVASCULAR: No chest pain or shortness of breath RESPIRATORY: No cough, wheezing, or hemoptysis. GASTROINTESTINAL: No nausea, vomiting, diarrhea or constipation. GENITOURINARY: No dysuria, frequency, or change in urination. MUSCULOSKELETAL: No joint or muscle swelling or pain. No neck or back pain. SKIN: No rash NEUROLOGIC: +Headache as described, no vertigo, loss of consciousness, or change in strength/sensation. ENDOCRINE: No increased thirst. No abnormal weight change HEMATOLOGIC/LYMPHATIC: No anemia, easy bleeding, or history of blood clots. ALLERGIC/IMMUNOLOGIC: No hives or skin allergy. *Physical Exam - Physical Exam Comments: 07/24/18 04:50 GENERAL: Awake, alert, and fully oriented, in no acute distress HEAD: No signs of trauma, normocephalic, atraumatic EYES: PERRLA, EOMI, sclera anicteric, conjunctiva clear ENT: Auricles normal inspection, hearing grossly normal, nares patent, oropharynx clear without exudates. Moist mucosa NECK: Normal ROM, supple, no lymphadenopathy, JVD, or masses LUNGS: No distress, speaks full sentences, clear to auscultation bilaterally HEART: Regular rate and rhythm, normal S1 and S2, no murmurs, rubs or gallops, peripheral pulses normal and equal bilaterally. ABDOMEN: Soft, nontender, normoactive bowel sounds. No guarding, no rebound. No masses EXTREMITIES: Normal inspection, Normal range of motion, no edema. No clubbing or cyanosis. NEUROLOGICAL: Cranial nerves II through XII grossly intact. Normal speech, normal gait, no focal sensorimotor deficits SKIN: Warm, Dry, normal turgor, no rashes or lesions noted. ED Treatment Course - LABORATORY CBC & Chemistry Diagram: 07/24/18 05:20 07/24/18 05:20 Medical Decision Making - Medical Decision Making 07/24/18 06:53 Ms. Yang is a 67 yo female w/ pmh as described who presents for evaluation of symptoms concerning for headache vs. bleed vs. other acute process. Patient evaluated with Head CT and labs as below. Symptomatic relief given with tylenol , reglan, and fluids. Patient head CT negative. . 07/24/18 07:27 Patient pending Brain CTA for r/o aneurysm. Laboratory Results - last 24 hr 07/24/18 07/24/18 05:20 05:20 WBC 5.0 RBC 4.27 Hgb 12.6 Hct 38.1 MCV 89.2 MCH 29.4 MCHC 33.0 RDW 13.8 Plt Count 274 MPV 10.0 D Absolute Neuts (auto) 2.4 Neutrophils % 49.5 Lymphocytes % 39.4 Monocytes % 9.1 Eosinophils % 1.3 Basophils % 0.7 Nucleated RBC % 0 Sodium 139 Potassium 4.3 Chloride 103 Carbon Dioxide 31 Anion Gap 5 L BUN 14 Creatinine 0.8 Creat Clearance w eGFR 71.76 Random Glucose 96 Calcium 9.0 Total Bilirubin 0.4 AST 37 ALT 38 Alkaline Phosphatase 69 Total Protein 8.9 H Albumin 4.1 *DC/Admit/Observation/Transfer Diagnosis at time of Disposition: Headache Qualifiers: Headache type: unspecified Headache chronicity pattern: unspecified pattern Intractability: not intractable Qualified Code(s): R51 - Headache - Discharge Dispostion Condition at time of disposition: Fair - Referrals Referrals: Kalee Caceres MD [Primary Care Provider] - - Patient Instructions - Post Discharge Activity Forms/Work/School Notes: Back to Work
[2018-07-24] MEDS ORDERED: SODIUM CHLORIDE 1,000 ML IV STA (04:53)
[2018-07-24] MEDS ORDERED: METOCLOPRAMIDE HCL INJECTION 10 MG/2 ML VIAL IVPB ONE (04:53)
[2018-07-24 05:06] VITALS: BMI 33.2
[2018-07-24] MEDS ORDERED: METOCLOPRAMIDE HCL INJECTION 10 MG/2 ML VIAL ONE (05:19)
[2018-07-24 05:27] LABS: BASO % 0.7 % (0-2.0); EOS % 1.3 % (0-4.5); HEMATOCRIT 38.1 % (32.4-45.2); HEMOGLOBIN 12.6 GM/dL (10.7-15.3); LYMPH % 39.4 % (8-40); MCH 29.4 pg (25.7-33.7); MEAN CELL VOLUME 89.2 fl (80-96); MONO % 9.1 % (3.8-10.2); NEUT % 49.5 % (42.8-82.8); PLATELET COUNT 274 K/MM3 (134-434); RBC 4.27 M/mm3 (3.60-5.2); RDW 13.8 % (11.6-15.6)
[2018-07-24] MEDS ORDERED: ACETAMINOPHEN 1000 MG/100 ML VIAL (NON FORMULARY) IVPB ONE (05:34)
[2018-07-24] MEDS ORDERED: ACETAMINOPHEN INJECTION 100 ML IVPB ONE (05:36)
[2018-07-24 06:05] LABS: ALBUMIN 4.1 g/dl (3.4-5.0); ALK PHOS 69 U/L (45-117); ANION GAP 5 MMOL/L (8-16); BILIRUBIN,TOTAL 0.4 mg/dL (0.2-1); BLOOD UREA NITROGEN 14 mg/dL (7-18); CHLORIDE 103 mmol/L (98-107); CO2 31 mmol/L (21-32); CREATININE 0.8 mg/dL (0.55-1.3); GLUCOSE,RANDOM 96 mg/dL (74-106); POTASSIUM 4.3 mmol/L (3.5-5.1); SGOT/AST 37 U/L (15-37); SGPT/ALT 38 U/L (13-61); SODIUM 139 mmol/L (136-145); TOT PROT 8.9 g/dl (6.4-8.2)
--- NOTE | 2018-07-24 07:17 | PDOC ---
Attending Attestation - Resident Resident Name: Terence Meraz - ED Attending Attestation I have performed the following: I have examined & evaluated the patient, The case was reviewed & discussed with the resident, I agree w/resident's findings & plan, Exceptions are as noted - HPI HPI: 07/24/18 07:17 67yo F hx MVR, HTN, HLD, and left brain aneurysm in July 2015 (did not require any procedures per grandson) who presents for evaluation of a headache that began earlier today. Patient describes the headache as left sided and sudden onset that woke her up from her sleep at 3AM today. Patient reports the headache today is more severe than her usual headaches. Denies any other associated symptoms of focal weakness or numbness. States headache is better now after IV tylenol. The patient denies chest pain, shortness of breath, and dizziness. Denies fever, chills, nausea, vomit, diarrhea and constipation. Denies dysuria, frequency, urgency and hematuria. Allergies: NKA Past surgical history: None reported Social history: No reported alcohol, drug or cigarette use. PCP: Dr. Caceres - Physicial Exam PE: 07/24/18 07:20 GENERAL: Awake, alert, and fully oriented, in no acute distress HEAD: No signs of trauma EYES: PERRLA, EOMI, sclera anicteric, conjunctiva clear ENT: Oropharynx clear without exudates. Moist mucosamasses LUNGS: Breath sounds equal, clear to auscultation bilaterally. No wheezes, and no crackles HEART: Regular rate and rhythm, normal S1 and S2, no murmurs, rubs or gallops ABDOMEN: Soft, nontender, normoactive bowel sounds. No guarding, no rebound. No masses EXTREMITIES: Normal range of motion, no edema. No cords, erythema, or tenderness NEUROLOGICAL: Normal speech, cranial nerves intact, negative pronator drift, 5/ 5 strength in all 4 extremities, normal sensation to light touch in all 4 extremities, normal cerebellar exam, normal gait SKIN: Warm, Dry, normal turgor, no rashes or lesions noted. - Medical Decision Making 07/24/18 07:21 67yo F hx MMP including reported hx aneurysm s/p rupture 2016 presents to the ED with sudden onset mendez that woke her up at 3am from sleep. Pt reports headache more severe than usual. BP elevated on arrival. Pt taken to CTH which was negative for acute blood. Pt is neuro intact. DDx includes but not limited to SAH vs sentinal aneurysmal leak vs migraine vs tension headache. Discussed with pt and grandson at bedside (who assists with MDM) and offered the patient an LP to r/o bleeding. RIsks and benefits discussed at length. Pt and grandson have hesitations due to risks of LP and her history of low back pain. Offered CTA head as an alternative and explained that this would evaluate for aneurysm but would not be 100% sensitive for blood. Pt and her grandson would like to think about these options at this time. Case signed out to Dr. Boyd for further mgmt/dispo
--- NOTE | 2018-07-24 10:04 | PDOC ---
*Physical Exam - Vital Signs Last Vital Signs Temp Pulse Resp BP Pulse Ox 98.3 F 83 16 122/70 98 07/24/18 07:28 07/24/18 07:28 07/24/18 07:28 07/24/18 07:28 07/24/18 07:28 - Physical Exam Comments: 07/24/18 09:57 Patient endorsed to me by Dr. Quintanilla. Patient is a 67-year-old female who presented to the ER with a severe headache that awakened her from sleep at approximately 3 AM on the day of arrival. Patient was noted to be hypertensive on initial evaluation without focal neurological deficits. 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 Initial CT of head showed no evidence of acute pathology. Patient was given IV acetaminophen and her blood pressure had improved without intervention. CTA of brain was performed and again showed no evidence of subarachnoid hemorrhage nor evidence of cerebral aneurysms. I discussed the case with radiologist who reviewed previous MRI which showed an intraparenchymal right frontal hematoma without evidence of underlying AVM or aneurysm. Previous hemorrhage was not related to cerebral aneurysm. At this time, given that patient presented within 6 hours of her symptom beginning, and given the fact that sensitivity of CT head in diagnoses of acute subarachnoid hemorrhage within 6 hours of onset is 100%, I do not feel the patient requires an LP. I discussed the findings with the patient and her family. They expressed understanding. I also advised the patient not to take Aleve or any other NSAIDs which she has been taking for her headache. Will discharge with outpatient neurology follow-up. ED Treatment Course - LABORATORY CBC & Chemistry Diagram: 07/24/18 05:20 07/24/18 05:20 - ADDITIONAL ORDERS Additional order review: Laboratory Results 07/24/18 05:20 Sodium 139 Potassium 4.3 Chloride 103 Carbon Dioxide 31 Anion Gap 5 L BUN 14 Creatinine 0.8 Creat Clearance w eGFR 71.76 Random Glucose 96 Calcium 9.0 Total Bilirubin 0.4 AST 37 ALT 38 Alkaline Phosphatase 69 Total Protein 8.9 H Albumin 4.1 07/24/18 05:20 RBC 4.27 MCV 89.2 MCHC 33.0 RDW 13.8 MPV 10.0 D Neutrophils % 49.5 Lymphocytes % 39.4 Monocytes % 9.1 Eosinophils % 1.3 Basophils % 0.7 - Medications Given in the ED: ED Medications Discontinued Medications Generic Name Dose Route Start Last Admin Trade Name Hugo PRN Reason Stop Dose Admin Acetaminophen 1,000 mg 07/24/18 05:34 07/24/18 05:42 Ofirmev Injection - IVPB 07/24/18 05:35 1,000 mg ONCE ONE Administration Sodium Chloride 1,000 mls @ 1,000 mls/hr 07/24/18 04:53 07/24/18 05:24 Normal Saline - IV 07/24/18 05:52 1,000 mls/hr ASDIR STA Administration Metoclopramide HCl 10 mg 07/24/18 04:53 07/24/18 05:24 Reglan Injection - IVPB 07/24/18 04:54 10 mg ONCE ONE Administration *DC/Admit/Observation/Transfer Diagnosis at time of Disposition: Headache Qualifiers: Headache type: unspecified Headache chronicity pattern: unspecified pattern Intractability: not intractable Qualified Code(s): R51 - Headache HTN (hypertension) Qualifiers: Hypertension type: unspecified Qualified Code(s): I10 - Essential (primary) hypertension - Discharge Dispostion Disposition: HOME Condition at time of disposition: Stable - Referrals Referrals: Kalee Caceres MD [Primary Care Provider] - Ollie Wilson MD [Staff Physician] - - Patient Instructions Printed Discharge Instructions: DI for High Blood Pressure, DI for Headache Additional Instructions: CAT scans of your brain revealed no evidence of bleeding or aneurysm. Control your blood pressure with medications prescribed. Do not take Advil or any other NSAIDs. Follow up with neurology U primary care physician. Return immediately for worsening symptoms. - Post Discharge Activity Forms/Work/School Notes: Back to Work
[2018-07-24 10:47] VITALS: BP 144/71; PULSE 61; TEMP 98.1
== END 2018-07-24 10:47 | disposition home or self-care (01) ==
LOC: JER 04:09
PROC: 3E033NZ Introduction of Analgesics, Hypnotics, Sedatives into Peripheral Vein, Percutaneous Approach (ICD-10-PCS; principal; 2018-07-24)
PROC: 3E033GC Introduction of Other Therapeutic Substance into Peripheral Vein, Percutaneous Approach (ICD-10-PCS; 2018-07-24)
PROC: 3E0337Z Introduction of Electrolytic and Water Balance Substance into Peripheral Vein, Percutaneous Approach (ICD-10-PCS; 2018-07-24)
DX: R51 Headache (principal); I10 Essential (primary) hypertension; E78.5 Hyperlipidemia, unspecified; I72.8 Aneurysm of other specified arteries; R73.03 Prediabetes; Z86.73 Personal history of transient ischemic attack (TIA), and cerebral infarction without residual deficits; I34.0 Nonrheumatic mitral (valve) insufficiency
CPT/HCPCS: 36415; 70450-TC; 70496-TC; 80053; 85025; 99282-25; J0131; J7030

== ENCOUNTER 2018-08-17 05:58 | Inpatient (IN) | payer OTHER ==
--- NOTE | 2018-08-17 06:10 | PDOC ---
Attending Attestation - Resident Resident Name: Radha Wood - ED Attending Attestation I have performed the following: I have examined & evaluated the patient, The case was reviewed & discussed with the resident, I agree w/resident's findings & plan - HPI HPI: 08/17/18 06:59 Pt comes with weakness and she was unable to move on the toilet this AM, so she yelled out and her son found her around 5:30AM. He had last seen her well last night at 11PM when they went to sleep. - Physicial Exam PE: 08/17/18 07:01 Agree with resident exam. Pt is able to follow commands and she is afebrile and she has no major deficits. She has drift of her right arm and some weakness of the right arm. However she has no drift on the left. Pt has slight asymmetry of her face. She has no weakness of her legs bilaterally Hergrip is strong bilaterally. PERRLA bilat. CN 2-12 intact bilat. Pt is afebrile and rest of her exam is normal. Grandson maintains that she is not acting herself. He states that usually she is more active. - Medical Decision Making 08/17/18 07:[address] head and labs. Pending results. She will be signed out to the day team.
--- NOTE | 2018-08-17 06:12 | PDOC ---
History of Present Illness - General Stated Complaint: RULE OUT STROKE Time Seen by Provider: 08/17/18 06:00 History Source: Patient, EMS, Family (Grandson) Exam Limitations: Clinical Condition - History of Present Illness Initial Comments: Pt is a 67 yo F, with PMH of MVR, HTN, HLD, glaucoma, and R hemorrhagic stroke ( 2016, transferred to [facility]), who is presenting from home, accompanied by her grandson. The pts grandson states this AM around 530 AM, he was awoken by the pt yelling for help from the bathroom. He found her on the toilet slumped backwards, and was not speaking correctly or answering his questions appropriately. EMS states pt was A/O x3 on their arrival and could answer their questions. Pt was last seen well at 1130 PM when the grandson went to sleep. The pt complains currently of generalized headache and muscle weakness in her extremities. 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 Pt denies any recent travel or sick contacts. Surgical: no relevant history. Family: no relevant history. 08/17/18 06:21 08/17/18 07:23 NIH Stroke Scale - Last Known Well Date/Time & Onset Date Last Known Well: 08/16/18 Time Last Known Well: 23:30 - Initial Evaluation Level of consciousness: Alert Ask patient the month and their age: Answers both correctly Ask patient to open & close eyes; make fist and let go: Obeys both correctly Best gaze (horizontal eye movement): Normal Visual field testing: No visual field loss Facial paresis (Show teeth/raise eyebrows/close eyes tight): Minor paralysis ( flattened nasolabial fold, asymmetry on smiling) Motor Function: Left Arm: Normal Motor Function: Right Arm: Drift Motor Function: Left Leg: Normal (extends leg 30 degrees for 5 seconds without drift) Motor Function: Right Leg: Normal (extends leg 30 degrees for 5 seconds without drift) Limb Ataxia: No ataxia Sensory(Use pinprick test arms,legs,trunk,face/side to side): Normal Best language (Describe picture, name items, read sentences): No Aphasia Dysarthria (read several words): Normal articulation Extinction and Inattention: No abnormality - Total Score NIH Stroke Scale Score: 2 Past History - Travel Traveled outside of the country in the last 30 days: No Close contact w/someone who was outside of country & ill: No - Past Medical History Allergies/Adverse Reactions: Allergies Allergy/AdvReac Type Severity Reaction Status Date / Time No Known Allergies Allergy Verified 07/24/18 05:06 Home Medications: Ambulatory Orders Amlodipine Besylate [Norvasc -] 5 mg PO DAILY 08/17/18 Atorvastatin Ca [Lipitor] 10 mg PO HS 08/17/18 Cholecalciferol (Vitamin D3) [Vitamin D3] 2,000 unit PO DAILY 08/17/18 Dorzolamide/Timolol/Pf [Dorzolamide-Timolol 2%-0.5%] 1 each OP BID 08/17/18 Gabapentin 100 mg PO TID 08/17/18 Latanoprost/Pf [Latanoprost 0.005% Eye Drop] 7.5 ml OP DAILY 08/17/18 Lisinopril [Zestril] 2.5 mg PO DAILY 08/17/18 Magnesium Oxide [Mag-Ox -] 400 mg PO DAILY 08/17/18 Cardiac Disorders: Yes (mitral valve regurgitation) CVA: Yes (NO RESIDUAL WEAKNESS.) COPD: No Diabetes: Yes (pre diabetic) HTN: Yes Hypercholesterolemia: Yes - Surgical History Abdominal Surgery: Yes (exploratory lap?) Appendectomy: Yes Neurologic Surgery: Yes (brain annurysm) Orthopedic Surgery: Yes (L. Shoulder, R. Knee) - Immunization History Immunization Up to Date: Yes - Suicide/Smoking/Psychosocial Hx Smoking Status: No Smoking History: Never smoked Have you smoked in the past 12 months: No Number of Cigarettes Smoked Daily: 0 Cigars Per Day: 0 Hx Alcohol Use: No Drug/Substance Use Hx: No Substance Use Type: None Hx Substance Use Treatment: No Review of Systems - Review of Systems Able to Perform ROS?: Yes Is the patient limited Grenadian proficient: No Constitutional: Yes: See HPI, Malaise, Weakness, Weight Stable. No: Chills, Diaphoresis, Fever, Loss of Appetite HEENTM: No: Blurred Vision, Recent change in vision, Double Vision, Nose Congestion, Throat Pain, Throat Swelling Respiratory: No: Cough, Orthopnea, Shortness of Breath Cardiac (ROS): No: Chest Pain, Edema, Irregular Heart Rate, Lightheadedness, Palpitations, Syncope, Chest Tightness ABD/GI: No: Constipated, Diarrhea, Nausea, Poor Appetite, Poor Fluid Intake, Vomiting : No: Burning, Dysuria, Pain, Urgency Musculoskeletal: Yes: Back Pain (chronic since fall in [place] months ago), Muscle Weakness (weakness today, unable to stand). No: Joint Pain, Muscle Pain , Neck Pain Integumentary: No: Rash Neurological: Yes: Headache (generalized), Weakness (weak this AM, unable to stand up from sitting). No: Numbness, Paresthesia, Unsteady Gait, Ataxia, Dizziness Psychiatric: No: Sleep Pattern Change, Change in Appetite Endocrine: No: Increased Urine, Change in Weight Hematologic/Lymphatic: Yes: See HPI (R hemorrhagic stroke) *Physical Exam - Vital Signs Vital Signs Temperature 98.0 F 08/17/18 06:00 Pulse Rate 68 08/17/18 06:00 Respiratory Rate 18 08/17/18 06:00 Blood Pressure 123/65 08/17/18 06:00 O2 Sat by Pulse Oximetry (%) 100 08/17/18 06:00 08/17/18 07:34 - Physical Exam Comments: Vitals stable, pt afebrile. Pt lying comfortably in the bed, now in NAD. Obese body habitus. Pt alert and oriented x3. Speaking in low volume but answering all questions appropriately. Mild R arm motor drift. belt sander generally intact, muscular strength and sensation otherwise intact. No midline spinal tenderness, step-offs, or crepitus. Head normocephalic, atraumatic. Eyes PERRLA, EOMI. Oropharynx without erythema or exudates, no LAD b/l. No nasal congestion, hearing intact. Clear heart sounds, S1/S2, no JVD, b/l pedal edema, or heart murmur. Clear lung sounds, no respiratory distress, wheezes, crackles, or accessory muscle use. No abdominal or CVA tenderness to palpation, no rebound, no guarding. Abdomen soft, non-distended, and with normoactive bowel sounds. Skin without jaundice or rash. 08/17/18 07:23 08/17/18 07:33 ED Treatment Course - LABORATORY CBC & Chemistry Diagram: 08/17/18 06:25 08/17/18 06:25 Medical Decision Making - Medical Decision Making Pt was seen at bedside, also will be seen by attending Dr. Clemens. Pt presenting from home, accompanied by her grandson. The pts grandson states this AM around 530 AM, he was awoken by the pt yelling for help from the bathroom. He found her on the toilet slumped backwards, and was not speaking correctly or answering his questions appropriately. EMS states pt was A/O x3 on their arrival and could answer their questions. Pt was last seen well at 1130 PM when the grandson went to sleep. The pt complains currently of generalized headache and muscle weakness in her extremities. CVA vs intracranial bleed/SAH vs infection vs cardiac/ACS vs electrolyte imbalances vs psych. Ordered work-up including stroke work-up (CBC, CMP, lipid panel, cardiac profile , stroke head CT), chest x-ray, ECG. Pt was taken for head CT, which showed small hyperdensities in the temporal lobe (may be artifacts). Radiology suggested repeat in 6-8 hours to monitor. Pt signed out to day team (Dr. Hernandez). Pt stable and resting comfortably in the bed. 08/17/18 07:27 *DC/Admit/Observation/Transfer Diagnosis at time of Disposition: Altered mental state Qualifiers: Altered mental status type: disorientation Qualified Code(s): R41.0 - Disorientation, unspecified - Discharge Dispostion Condition at time of disposition: Guarded - Referrals Referrals: Kalee Caceres MD [Primary Care Provider] - - Patient Instructions - Post Discharge Activity
[2018-08-17] MEDS ORDERED: SODIUM CHLORIDE 1,000 ML IV SCH (06:15)
[2018-08-17 06:17] VITALS: BMI 32.0
--- NOTE | 2018-08-17 06:27 | PDOC ---
NIH Stroke Scale - Last Known Well Date/Time & Onset Date Last Known Well: 08/16/18 Time Last Known Well: 23:00 - Initial Evaluation Level of consciousness: Alert Ask patient the month and their age: Answers both correctly Ask patient to open & close eyes; make fist and let go: Obeys both correctly Best gaze (horizontal eye movement): Normal Visual field testing: No visual field loss Facial paresis (Show teeth/raise eyebrows/close eyes tight): Minor paralysis ( flattened nasolabial fold, asymmetry on smiling) Motor Function: Left Arm: Normal Motor Function: Right Arm: Drift Motor Function: Left Leg: Normal (extends leg 30 degrees for 5 seconds without drift) Motor Function: Right Leg: Normal (extends leg 30 degrees for 5 seconds without drift) Limb Ataxia: No ataxia Sensory(Use pinprick test arms,legs,trunk,face/side to side): Normal Best language (Describe picture, name items, read sentences): No Aphasia Dysarthria (read several words): Normal articulation Extinction and Inattention: No abnormality - Total Score NIH Stroke Scale Score: 2
[2018-08-17 07:05] LABS: BASO % 0.5 % (0-2.0); EOS % 1.1 % (0-4.5); HEMATOCRIT 35.8 % (32.4-45.2); HEMOGLOBIN 11.8 GM/dL (10.7-15.3); LYMPH % 50.1 % (8-40); MCH 29.4 pg (25.7-33.7); MCHC 32.9 g/dl (32.0-36.0); MEAN CELL VOLUME 89.3 fl (80-96); MEAN PLT VOLUME 9.9 fl (7.5-11.1); NEUT % 41.3 % (42.8-82.8); PLATELET COUNT 273 K/MM3 (134-434); RBC 4.01 M/mm3 (3.60-5.2); WHITE BLOOD COUNT 4.8 K/mm3 (4.0-10.0)
[2018-08-17 07:33] LABS: INR 1.04 (0.83-1.09); PROTHROMBIN TIME (PATIENT) 12.3 SEC (9.7-13.0)
[2018-08-17 07:36] LABS: ALBUMIN 3.6 g/dl (3.4-5.0); ALK PHOS 58 U/L (45-117); ANION GAP 5 MMOL/L (8-16); BILIRUBIN,TOTAL 0.5 mg/dL (0.2-1); BLOOD UREA NITROGEN 11 mg/dL (7-18); CALCIUM 8.9 mg/dL (8.5-10.1); CHLORIDE 104 mmol/L (98-107); CHOLESTEROL 125 mg/dL (50-200); CO2 30 mmol/L (21-32); CREATININE 0.9 mg/dL (0.55-1.3); GLUCOSE,RANDOM 85 mg/dL (74-106); HDL CHOLESTEROL 92 mg/dL (40-60); POTASSIUM 3.6 mmol/L (3.5-5.1); SGOT/AST 24 U/L (15-37); SGPT/ALT 25 U/L (13-61); SODIUM 140 mmol/L (136-145); TOT PROT 7.8 g/dl (6.4-8.2); TRIGLYCERIDES 45 mg/dL (0-150)
[2018-08-17] MEDS ORDERED: ACETAMINOPHEN 325 MG TABLET (FP) PO ONE (09:27)
--- NOTE | 2018-08-17 09:38 | PDOC ---
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 negative: Numbness ED Treatment Course - LABORATORY CBC & Chemistry Diagram: 08/17/18 06:25 08/17/18 06:25 - ADDITIONAL ORDERS Additional order review: Laboratory Results 08/17/18 08/17/18 06:25 06:25 PT with INR 12.30 INR 1.04 Sodium 140 Potassium 3.6 Chloride 104 Carbon Dioxide 30 Anion Gap 5 L BUN 11 Creatinine 0.9 Creat Clearance w eGFR 62.64 Random Glucose 85 Calcium 8.9 Total Bilirubin 0.5 AST 24 ALT 25 Alkaline Phosphatase 58 Creatine Kinase 671 H Creatine Kinase Index 0.5 CK-MB (CK-2) 3.7 H Troponin I < 0.02 Total Protein 7.8 Albumin 3.6 Triglycerides 45 Cholesterol 125 Total LDL Cholesterol 28 HDL Cholesterol 92 H 08/17/18 06:25 RBC 4.01 MCV 89.3 MCHC 32.9 RDW 14.0 MPV 9.9 Neutrophils % 41.3 L Lymphocytes % 50.1 H D Monocytes % 7.0 Eosinophils % 1.1 Basophils % 0.5 Medical Decision Making - Medical Decision Making 08/17/18 09:37 labs; wnl head CT normal admit *DC/Admit/Observation/Transfer Diagnosis at time of Disposition: TIA (transient ischemic attack) Altered mental state Qualifiers: Altered mental status type: disorientation Qualified Code(s): R41.0 - Disorientation, unspecified - Discharge Dispostion Condition at time of disposition: Guarded Decision to Admit order: Yes - Referrals Referrals: Kalee Caceres MD [Primary Care Provider] - - Patient Instructions - Post Discharge Activity - Attestations Physician Attestion: 08/17/18 10:08 Suly Hernandez
--- NOTE | 2018-08-17 09:39 | EKG ---
Test Reason : Blood Pressure : / mmHG Vent. Rate : 060 BPM Atrial Rate : 060 BPM P-R Int : 228 ms QRS Dur : 096 ms QT Int : 440 ms P-R-T Axes : 053 049 047 degrees QTc Int : 440 ms SINUS RHYTHM WITH 1ST DEGREE A-V BLOCK NONSPECIFIC ST ABNORMALITY ABNORMAL ECG WHEN COMPARED WITH ECG OF 31-AUG-2017 00:00, ST ELEVATION NOW PRESENT IN ANTERIOR LEADS Confirmed by GATITO AGGARWAL, NAYELI ([id number]) on 08/17/2018 9:39:05 AM Referred By: RUSTY Confirmed By:NAYELI MEDEROS MD
[2018-08-17] MEDS ORDERED: ACETAMINOPHEN 325 MG TABLET (FP) ONE (09:54)
--- NOTE | 2018-08-17 11:04 | HP ---
CHIEF COMPLAINT: Weakness, altered speech PCP: Dr. Caceres HISTORY OF PRESENT ILLNESS: Pt is a 67 y/o F with PMH HTN, HLD, R hemorrhagic CVA 2/2 brain aneurysm (2015 [facility]) who presented to ED brought by EMS for altered speech and weakness. Per pt and grandson at bedside, pt went to bed feeling well at 11:30 PM. At 5:30 am grandswetha was awakened to her yelling incoherently. Per patient, she went to the restroom and became very weak while on the toilet. Grandson states he found her slumped to her right side leaning on the wall unable to speak. Pt states she was aware and wanted to speak but was unable to form words. Grandson states this lasted about 15-20 min until EMS arrived at which point she was able to mouth words but not speak clearly. Per record, EMS found her speaking clearly and AAOx3, as did initial eval in ED. Denies dizziness, headache, nausea, vomiting, diarrhea, chest pain. Pt was not a TPA candidate. Of note, pt has had numerous episodes of dizziness while using the toilet. ER course was notable for: (1) Vital signs stable. NIHSS 2 (2) Acetaminophen and NS given (3) Recent Travel: [facility] PAST MEDICAL HISTORY: MVR, HTN, ?HLD, glaucoma, R hemorrhagic CVA PAST SURGICAL HISTORY: L shoulder, R knee, lap appy converted to Ex lap Social History: Smoking:denies Alcohol: denies Drugs: denies Congregational Family History: Allergies No Known Allergies Allergy (Verified 07/24/18 05:06) HOME MEDICATIONS: Home Medications Medication Instructions Recorded Amlodipine Besylate [Norvasc -] 5 mg PO DAILY 08/17/18 Atorvastatin Ca [Lipitor] 10 mg PO HS 08/17/18 Cholecalciferol (Vitamin D3) 2,000 unit PO DAILY 08/17/18 [Vitamin D3] Dorzolamide/Timolol/Pf 1 each OP BID 08/17/18 [Dorzolamide-Timolol 2%-0.5%] Gabapentin 100 mg PO TID 08/17/18 Latanoprost/Pf [Latanoprost 0.005% 7.5 ml OP DAILY 08/17/18 Eye Drop] Lisinopril [Zestril] 2.5 mg PO DAILY 08/17/18 Magnesium Oxide [Mag-Ox -] 400 mg PO DAILY 08/17/18 REVIEW OF SYSTEMS CONSTITUTIONAL: Absent: fever, chills, diaphoresis, generalized weakness, malaise, loss of appetite, weight change HEENT: Absent: rhinorrhea, nasal congestion, throat pain, throat swelling, difficulty swallowing, mouth swelling, ear pain, eye pain, visual changes CARDIOVASCULAR: Absent: chest pain, syncope, palpitations, irregular heart rate, lightheadedness , peripheral edema RESPIRATORY: Absent: cough, shortness of breath, dyspnea with exertion, orthopnea, wheezing, stridor, hemoptysis GASTROINTESTINAL: Absent: abdominal pain, abdominal distension, nausea, vomiting, diarrhea, constipation, melena, hematochezia GENITOURINARY: Absent: dysuria, frequency, urgency, hesitancy, hematuria, flank pain, genital pain MUSCULOSKELETAL: Absent: myalgia, arthralgia, joint swelling, back pain, neck pain SKIN: Absent: rash, itching, pallor HEMATOLOGIC/IMMUNOLOGIC: Absent: easy bleeding, easy bruising, lymphadenopathy, frequent infections ENDOCRINE: Absent: unexplained weight gain, unexplained weight loss, heat intolerance, cold intolerance NEUROLOGIC: headache, altered speech Absent: , focal weakness or paresthesias, dizziness, unsteady gait, seizure, mental status changes, bladder or bowel incontinence PSYCHIATRIC: Absent: anxiety, depression, suicidal or homicidal ideation, hallucinations. 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 soft, nondistended, nontender, no organomegally Ext: R knee with scar from prior surgery. Tender with active and passive ROM Neuro: Mild flattening of L nasolabial fold. Unable to assess R pupil. Otherwise , CN 2-12 intact. sensation intact throughout. Unable to assess strength in RLE due to R knee pain. Otherwise strength 5/5 thoughout. b/l plantar flexion and dorsiflexion intact. Laboratory Results - last 24 hr 08/17/18 08/17/18 08/17/18 06:25 06:25 06:25 WBC 4.8 RBC 4.01 Hgb 11.8 Hct 35.8 MCV 89.3 MCH 29.4 MCHC 32.9 RDW 14.0 Plt Count 273 MPV 9.9 Absolute Neuts (auto) 2.0 Neutrophils % 41.3 L Lymphocytes % 50.1 H D Monocytes % 7.0 Eosinophils % 1.1 Basophils % 0.5 Nucleated RBC % 0 PT with INR 12.30 INR 1.04 Sodium 140 Potassium 3.6 Chloride 104 Carbon Dioxide 30 Anion Gap 5 L BUN 11 Creatinine 0.9 Creat Clearance w eGFR 62.64 Random Glucose 85 Calcium 8.9 Total Bilirubin 0.5 AST 24 ALT 25 Alkaline Phosphatase 58 Creatine Kinase 671 H Creatine Kinase Index 0.5 CK-MB (CK-2) 3.7 H Troponin I < 0.02 Total Protein 7.8 Albumin 3.6 Triglycerides 45 Cholesterol 125 Total LDL Cholesterol 28 HDL Cholesterol 92 H ASSESSMENT/PLAN: Pt is a 67 y/o F with hx R frontal hemorrhagic CVA with residual forgetfulness and no other deficit who presented to ED brought by EMS for altered speech and global weakness. Pt is being placed on Tele Obs for TIA/Stroke workup. #TIA/CVA -TIA ABCD score 2 -residual flattening of L nasolabial fold -no longer has pronator drift -speaking clearly at this time -permissive HTN -PT -ASA -MRI -EEG -carotid duplex 1 year ago neg, recent CTA neg, echo 1 year ago neg with EF 55- 60% #HTN -permissive HTN -hold Metoprolol until tomorrow #Glaucoma -continue with eye drops #HLD -cont with statin #FEN -not on fluids -lytes wnl -Na controlled diet #PPx -Hep sub Q #Dispo -Tele/Obs for TIA/CVA workup Visit type - Emergency Visit Emergency Visit: Yes ED Registration Date: 08/17/18 Care time: The patient presented to the Emergency Department on the above date and was hospitalized for further evaluation of their emergent condition. - New Patient This patient is new to me today: Yes Date on this admission: 08/17/18 - Critical Care Critical Care patient: No
[2018-08-17] MEDS ORDERED: ACETAMINOPHEN 325 MG TABLET (FP) PO PRN (11:10)
[2018-08-17] MEDS ORDERED: PATIENT'S OWN MEDICATION (NON-FORMULARY) (Latanoprost/Pf [Latanoprost 0.005% Eye Drop] 7.5 OP SCH (11:45)
[2018-08-17] MEDS ORDERED: PATIENT'S OWN MEDICATION (NON-FORMULARY) (Dorzolamide/Timolol/Pf [Dorzolamide-Timolol 2%-0 OP SCH ×3 (11:45→13:40)
--- NOTE | 2018-08-17 12:38 | PN ---
Teaching Attending Note Name of Resident: Orlando Harrington ATTENDING PHYSICIAN STATEMENT I saw and evaluated the patient. I reviewed the resident's note and discussed the case with the resident. I agree with the resident's findings and plan as documented. SUBJECTIVE: CC: aphasia. HPI: 67 y/o lady with h/o hemorrhagic stroke, documented brain aneurysm, HTN, h/ o Dm( not on meds) , chronic STOUT , Lower back apain, R knee replacement, appendectomy with complications, and frequent visits to ER with STOUT and dizziness, who presented this time with an episode of aphasia and facial droop . per patient and her grandson, she was on toilet seat when she felt dizzy , and leaned to her R side, with inability to speak. grand son heard her and found her aphasic, and with R side of mouth drooping ta 5:30 am . At time of interview , he thinks her speech is normal and her face is symmetric as per her usual. she reports feeling dizzy on toilet seat ( can't specify) . in ER, her HIH score was 2. Not clear form ER documentations ( still in draft) , if neuro was called. now she denies any STOUT , any visual changes, she thinks her epach is Nl. no weakness in upper or lower extremities. denies any dysuria, diarrhea, palpitations, abd pain ,Cp, SOB, or fever OBJECTIVE: NAD, awake, alert, oriented x 3. MMM. CV: RRR, 2/6 Sm at LUSB , with no radiation . no JVD Lungs: CTAB Abd: soft, NT, ND , NL BS, mid line surgical scar Ext : no edema or erythema, no signs of fungal infection in feet. R knee scar Neuro: EOMI, round L pupil, R pupil is deformed. no facial droop is noted at this time. tongue at mid line, unable to visualize uvula. Decreased sensation to light touch on L side of the face. strength 5/5 in upper and lower extremities proximally and distally. sensation to light touch : decreased in R upper arm, compared to Left side, and in L thigh compared to R side. DTR: 2+ L knee jerk, unable to get R knee jerk. biceps 1+ bilaterally nose to finger nL ASSESSMENT AND PLAN: 67 y/o lady with h/o hemorrhagic stroke, documented brain aneurysm, HTN, h/o DM ( not on meds) , chronic STOUT , Lower back apain, R knee replacement with chronic pain, appendectomy with complications, and frequent visits to ER with STOUT and dizziness, who presented this time with an episode of aphasia and facial droop . 1- Aphasia, and facial droop. ? TIA . patient might have had a vasovagal response after urinating which caused hypoperfsion to her brain. reported is frequent dizzy spells while on toilet seat in past. no neurological deficits now , except for questionable sensory deficit that does not follow a distribution as above. - MRI of brain. - Echo - last CUS with no carotid stenosis. - D/W neuro by Dr. Harrington, recs for EEG, and ASA - formal speech eval and PT eval. - cont lipitor - permissive HTN for today - avoid hypotension - tele 2- h/o HTN: her list indicates norvasc, lisinopril and Metorpolol but she takes metorpolol only - will resume tomorrow . avoid hypotension 3- h/o DM. last A1c 5.9 in 06/04, before that 6.1. 7.2 in 06/03. was on metformin in past but not on any now - repeat a1c. - might benefit form metformin even if prediabetic 4- Observe on tele
[2018-08-17] MEDS ORDERED: ASPIRIN COATED 81 MG TABLET.EC ONE (14:13)
[2018-08-17] MEDS ORDERED: GABAPENTIN 100 MG CAPSULE (FP) ONE (14:14)
[2018-08-17] MEDS ORDERED: MAGNESIUM OXIDE 400 MG TABLET (FP) ONE ×2 (14:14→14:16)
[2018-08-17] MEDS ORDERED: HEPARIN NA (PORCINE) 5,000 UNITS/ML 1ML VIAL ONE ×2 (14:14→14:23)
[2018-08-17] MEDS: GABAPENTIN 100 MG CAPSULE (FP) PO SCH ×2 (14:25→21:29)
[2018-08-17] MEDS: CHOLECALCIFEROL (VITAMIN D3) 1,000 UNIT TABLET (FP) PO SCH (14:25)
[2018-08-17] MEDS: HEPARIN NA (PORCINE) 5,000 UNITS/ML 1ML VIAL SQ SCH ×2 (14:25→21:29)
[2018-08-17] MEDS: ASPIRIN COATED 81 MG TABLET.EC PO SCH (14:25)
[2018-08-17] MEDS: MAGNESIUM OXIDE 400 MG TABLET (FP) PO SCH (14:25)
--- NOTE | 2018-08-17 15:27 | CON.NEURO ---
Consult Consult Specialty:: neurology Reason for Consultation:: TIA - History of Present Illness History of Present Illness: Pt is a 67 y/o F with PMH HTN, HLD, R hemorrhagic CVA 2/2 brain aneurysm (2015 [facility]) who presented to ED brought by EMS for altered speech and weakness. Per pt and grandson at bedside, pt went to bed feeling well at 11:30 PM. At 5:30 am grandswetha was awakened to her yelling incoherently. Per patient, she went to the restroom and became very weak while on the toilet. Grandson states he found her slumped to her right side leaning on the wall unable to speak. Pt states she was aware and wanted to speak but was unable to form words. Grandswetha states this lasted about 15-20 min until EMS arrived at which point she was able to mouth words but not speak clearly. She is back to her baseline , she describes the event as mentioned above ; ; she denies headache , numbness, weakness , dysphagia etc. 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 Home Medications - Allergies Allergies/Adverse Reactions: Allergies Allergy/AdvReac Type Severity Reaction Status Date / Time No Known Allergies Allergy Verified 07/24/18 05:06 - Home Medications Home Medications: Ambulatory Orders Atorvastatin Ca [Lipitor] 10 mg PO HS 08/17/18 Cholecalciferol (Vitamin D3) [Vitamin D3] 2,000 unit PO DAILY 08/17/18 Dorzolamide/Timolol/Pf [Dorzolamide-Timolol 2%-0.5%] 1 each OP BID 08/17/18 Gabapentin 100 mg PO TID 08/17/18 Latanoprost/Pf [Latanoprost 0.005% Eye Drop] 7.5 ml OP DAILY 08/17/18 Magnesium Oxide [Mag-Ox -] 400 mg PO DAILY 08/17/18 Metoprolol Succinate 50 mg PO DAILY 08/17/18 Review of Systems - Review of Systems Constitutional: reports: No Symptoms Eyes: reports: No Symptoms HENT: reports: No Symptoms Neck: reports: No Symptoms Cardiovascular: reports: No Symptoms Respiratory: reports: No Symptoms Gastrointestinal: reports: No Symptoms Genitourinary: reports: No Symptoms Physical Exam-Neuro Vital Signs: Vital Signs Temperature 98.8 F 08/17/18 14:56 Pulse Rate 68 08/17/18 14:56 Respiratory Rate 18 08/17/18 14:56 Blood Pressure 141/67 08/17/18 14:56 O2 Sat by Pulse Oximetry (%) 99 08/17/18 14:56 Constitutional: Yes: Well Nourished, No Distress Neck: Yes: Supple Cardiovascular: Yes: Regular Rate and Rhythm Respiratory: Yes: CTA Bilaterally Musculoskeletal: Yes: WNL Edema: No Labs: CBC, BMP 08/17/18 06:25 08/17/18 06:25 INR, PTT INR 1.04 (0.83-1.09) 08/17/18 06:25 - Neuro Exam Level Of Consciousness: Yes: Oriented to Person, Oriented to Place, Oriented to Time Eyes: Yes: PERRLA Speech: WNL Cranial Nerves II-XII Intact: Yes Gag: Present DTR's: 1+ Left Bicep, 1+ Right Bicep, 1+ Left Tricep, 1+ Right Tricep, 1+ Left Brachioradialis, 1+ Right Brachioradialis, 1+ Left Achilles, 1+ Right Achilles Babinski: Absent Response to light touch: Normal Response to pain prick: Normal Coordination: Normal: Finger to Nose, Heel to Fritz Motor Strength: 5/5: Left Arm, Right Arm, Left Leg, Right Leg Gait: Deferred Imaging - Results Cat Scan: Image Reviewed (R frontal encephalomalacia) Assessment/Plan Pt is a 67 y/o F with PMH HTN, HLD, R hemorrhagic CVA 2/2 brain aneurysm (2015 [facility]) who presented to ED brought by EMS for altered speech and weakness. Her sym resolved ; no focal weakness or numbness or face asymmetria or dysmetria on exam. Hx and exam suggestive of TIA vs todds paralysis vs seizure activities Not a TPA candidate out of window 3- 4.5 hours MRI brain wo MRA head and neck Baby asp statin permissive hypertensive EEG routine ECHO Holter Health maintenance per primary team Thank you. Trent Weaver MD
[2018-08-17] MEDS: ATORVASTATIN CA 10 MG TABLET (FP) PO SCH (21:29)
[2018-08-17] MEDS ORDERED: PATIENT'S OWN MEDICATION (NON-FORMULARY) (Latanoprost/Pf [Latanoprost 0.005% Eye Drop] 1 D OP SCH ×2 (22:00)
[2018-08-18] MEDS: GABAPENTIN 100 MG CAPSULE (FP) PO SCH ×3 (06:13→21:52)
[2018-08-18] MEDS: HEPARIN NA (PORCINE) 5,000 UNITS/ML 1ML VIAL SQ SCH ×3 (06:13→21:52)
[2018-08-18 07:30] LABS: ALBUMIN 3.4 g/dl (3.4-5.0); ALK PHOS 53 U/L (45-117); ANION GAP 5 MMOL/L (8-16); BILIRUBIN,TOTAL 0.5 mg/dL (0.2-1); BLOOD UREA NITROGEN 12 mg/dL (7-18); CALCIUM 8.7 mg/dL (8.5-10.1); CHLORIDE 107 mmol/L (98-107); CHOLESTEROL 122 mg/dL (50-200); CO2 28 mmol/L (21-32); CREATININE 0.7 mg/dL (0.55-1.3); GLUCOSE,RANDOM 84 mg/dL (74-106); HDL CHOLESTEROL 94 mg/dL (40-60); MAGNESIUM 2.4 mg/dL (1.8-2.4); PHOSPHOROUS 4.2 mg/dL (2.5-4.9); SGOT/AST 20 U/L (15-37); SGPT/ALT 23 U/L (13-61); SODIUM 140 mmol/L (136-145); TOT PROT 7.2 g/dl (6.4-8.2); TRIGLYCERIDES 34 mg/dL (0-150)
[2018-08-18 07:42] LABS: BASO % 0.5 % (0-2.0); EOS % 0.8 % (0-4.5); HEMATOCRIT 34.8 % (32.4-45.2); HEMOGLOBIN 11.6 GM/dL (10.7-15.3); LYMPH % 49.4 % (8-40); MCH 29.4 pg (25.7-33.7); MCHC 33.4 g/dl (32.0-36.0); MEAN CELL VOLUME 88.3 fl (80-96); MEAN PLT VOLUME 10.4 fl (7.5-11.1); MONO % 7.7 % (3.8-10.2); NEUT % 41.6 % (42.8-82.8); PLATELET COUNT 252 K/MM3 (134-434); RBC 3.95 M/mm3 (3.60-5.2); RDW 13.8 % (11.6-15.6); WHITE BLOOD COUNT 4.7 K/mm3 (4.0-10.0)
[2018-08-18 08:44] LABS: PH,URINE 7.5 (5.0-8.0); URINE APPEARANCE CLEAR; URINE BILIRUBIN NEGATIVE (NEGATIVE); URINE COLOR YELLOW; URINE GLUCOSE (UA) NEGATIVE (NEGATIVE); URINE KETONE NEGATIVE (NEGATIVE); URINE LEUK ESTERASE NEGATIVE (NEGATIVE); URINE NITRITE NEGATIVE (NEGATIVE); URINE PROTEIN NEGATIVE (NEGATIVE); URINE UROBILINOGEN 0.2 mg/dL (0.2-1.0)
[2018-08-18] MEDS: CHOLECALCIFEROL (VITAMIN D3) 1,000 UNIT TABLET (FP) PO SCH (10:17)
[2018-08-18] MEDS: ASPIRIN COATED 81 MG TABLET.EC PO SCH (10:17)
[2018-08-18] MEDS: MAGNESIUM OXIDE 400 MG TABLET (FP) PO SCH (10:17)
--- NOTE | 2018-08-18 15:00 | PN ---
Progress Note (short form) - Note Progress Note: Subjective: no fever or chills. no weakness, or tinging or change in vision Objective: Vital Signs: Last Vital Signs Temp Pulse Resp BP Pulse Ox 98 F 68 20 114/53 L 98 08/18/18 10:00 08/18/18 10:00 08/18/18 10:00 08/18/18 10:00 08/18/18 03:00 Laboratory Results - last 24 hr 08/18/18 08/18/18 08/18/18 05:30 05:30 06:45 WBC 4.7 RBC 3.95 Hgb 11.6 Hct 34.8 MCV 88.3 MCH 29.4 MCHC 33.4 RDW 13.8 Plt Count 252 MPV 10.4 Absolute Neuts (auto) 2.0 Neutrophils % 41.6 L Lymphocytes % 49.4 H Monocytes % 7.7 Eosinophils % 0.8 Basophils % 0.5 Nucleated RBC % 0 Sodium 140 Potassium 4.0 Chloride 107 Carbon Dioxide 28 Anion Gap 5 L BUN 12 Creatinine 0.7 Creat Clearance w eGFR 83.72 Random Glucose 84 Calcium 8.7 Phosphorus 4.2 Magnesium 2.4 Total Bilirubin 0.5 AST 20 ALT 23 Alkaline Phosphatase 53 Total Protein 7.2 Albumin 3.4 Triglycerides 34 Cholesterol 122 Total LDL Cholesterol 26 HDL Cholesterol 94 H Urine Color Yellow Urine Appearance Clear Urine pH 7.5 Ur Specific [place] 1.011 Urine Protein Negative Urine Glucose (UA) Negative Urine Ketones Negative Urine Blood Negative Urine Nitrite Negative Urine Bilirubin Negative Urine Urobilinogen 0.2 Ur Leukocyte Esterase Negative Physical Exam: OBJECTIVE: NAD, awake, alert, oriented x 3. CV: RRR, 2/6 Sm at LUSB , with no radiation . no JVD Lungs: CTAB Ext : no edema or erythema Neuro: EOMI, round L pupil, R pupil is deformed. no facial droop is noted at this time. tongue at mid line, unable to visualize uvula. Decreased sensation to light touch on L side of the face. strength 5/5 in upper and lower extremities proximally and distally. sensation to light touch : decreased in R upper arm, compared to Left side, and in L thigh compared to R side. DTR: 2+ L knee jerk, unable to get R knee jerk. biceps 1+ bilaterally ASSESSMENT AND PLAN: 67 y/o lady with h/o hemorrhagic stroke, documented brain aneurysm, HTN, h/o DM ( not on meds) , chronic STOUT , Lower back apain, R knee replacement with chronic pain, appendectomy with complications, and frequent visits to ER with STOUT and dizziness, who presented this time with an episode of aphasia and facial droop . 1- Aphasia, and facial droop. ? TIA Vs vasovagal event - MRI, MRA reviewed. - Echo pending - cont ASA - formal speech eval and PT eval. - cont lipitor - tele with no events - eeg ordered 2- h/o HTN:resume her metorpolol 3- h/o DM. - repeat a1c. - might benefit form metformin if prediabetic 4- Observe on tele possible dc tomorrow Visit type - Emergency Visit Emergency Visit: Yes ED Registration Date: 08/17/18 Care time: The patient presented to the Emergency Department on the above date and was hospitalized for further evaluation of their emergent condition. - New Patient This patient is new to me today: No - Critical Care Critical Care patient: No
--- NOTE | 2018-08-18 17:40 | PN ---
Progress Note (short form) - Note Progress Note: call circuit worker internal sales engineer asked to see patient for headache. Patient endorses headache is chronic. Began early this afternoon with sudden onset. She denies fall, loss of consciousness, or trauma. Currently, patient admits headache is improving. No changes in vision. No subjective weakness, or paresthesias. Vital signs BP:134/67 mmHg HR: 68 BPM RR: 20 BPM O2 Saturation: 98% room air Exam: General: Patient is resting comfortably in exam bed, in no acute distress. Pulmonary: Good inspiratory effort, lungs clear to auscultation bilaterally without wheezing, or crackles Cardiac: S1, S2 auscultated without murmur, rub, gallop Abdomen: soft, nontender x4 quadrants. No hepatomegaly appreciated Neuro: CN II-XII grossly intact, EOMI without nystagmus. Strength 5/5 bilateral upper and lower extremities. Sensation intact bilaterally. Plan: Headache; with nonfocal neurological exam. Will give Tylenol 650mg PO one time dose. Reevaluate if symptoms do not improve, or worsen.
[2018-08-18] MEDS ORDERED: ACETAMINOPHEN 325 MG TABLET (FP) PO ONE (17:42)
[2018-08-18] MEDS: ATORVASTATIN CA 10 MG TABLET (FP) PO SCH (21:52)
[2018-08-19] MEDS: GABAPENTIN 100 MG CAPSULE (FP) PO SCH ×2 (05:44→15:20)
[2018-08-19] MEDS: HEPARIN NA (PORCINE) 5,000 UNITS/ML 1ML VIAL SQ SCH ×2 (05:44→15:21)
[2018-08-19] MEDS: CHOLECALCIFEROL (VITAMIN D3) 1,000 UNIT TABLET (FP) PO SCH (11:26)
[2018-08-19] MEDS: MAGNESIUM OXIDE 400 MG TABLET (FP) PO SCH (11:26)
[2018-08-19] MEDS: ASPIRIN COATED 81 MG TABLET.EC PO SCH (11:27)
[2018-08-19 11:28] VITALS: BP 137/96; PULSE 66; TEMP 98.5
--- NOTE | 2018-08-19 13:05 | ECHO ---
Name: EULALIA MOON Exam:Adult Echocardiogram Study Date: 08/19/2018 12:07 PM Age: 67 yrs Reason For Study: CVA Height: 62 in Weight: 175 lb BSA: 1.8 m2 Procedure A complete two-dimensional transthoracic echocardiogram was performed (2D, M-mode, Doppler and color flow Doppler). Left Ventricle The left ventricle is normal in size. Left ventricular systolic function is normal. Ejection Fraction = >70%. E/A reversal consistent with but not diagnostic of poor LV compliance. No regional wall motion abnorm alities noted. Right Ventricle The right ventricle is normal size. The right ventricular systolic function is normal. RV systolic TD I is 14 cm/s. Atria The left atrial size is normal. Right atrial size is normal. Mitral Valve The mitral valve is normal in structure and function. There is mild mitral regurgitation. Tricuspid Valve The tricuspid valve is normal in structure and function. There is mild tricuspid regurgitation. Pulmo nary artery systolic pressure is at least 27 mmHg if RA pressure is assumed 3 mmHg. Aortic Valve The aortic valve is normal in structure and function. Mild aortic regurgitation. Pulmonic Valve The pulmonic valve is not well visualized. Great Vessels The aortic root is normal size. Pericardium/Pleura There is no pericardial effusion. Interpretation Summary The left ventricle is normal in size. Left ventricular systolic function is normal. No regional wall motion abnormalities noted. Ejection Fraction = >70%. E/A reversal consistent with but not diagnostic of poor LV compliance The right ventricular systolic function is normal. The left atrial size is normal. Right atrial size is normal. There is mild mitral regurgitation. There is mild tricuspid regurgitation. Pulmonary artery systolic pressure is at least 27 mmHg if RA pressure is assumed 3 mmHg Mild aortic regurgitation. There is no pericardial effusion. Previous study is not available for comparison Wesley Chairez MD 08/19/2018 01:05 PM
--- NOTE | 2018-08-19 13:10 | PN ---
Physical Exam: SUBJECTIVE: Patient seen and examined this AM. She is complaining of back pain which she states is chronic and a headache which she states she has had for a few days. She endorses trying not to take the tylenol yet until she needs it more. She also endorses right thigh swelling. Denies any weakness, dizziness, SOB, chest pain, palpitations. OBJECTIVE: Vital Signs Period Temp Pulse Resp BP Sys/Coronel Pulse Ox Last 24 Hr 97.7 F-98.9 F 56-68 18-20 122-139/58-96 97-97 GEN: Alert, oriented X3, no acute distress HEENT: Right pupil deformity, left pupil reactive to light, moist mucus membranes, NECK: no carotid bruit HEART: regular rate and rhythm, no murmurs noted LUNGS: CTA b/l, no wheezes or rhonchi noted ABDOMEN: Soft, obese, nontender, normoactive bowel sounds EXTREMITIES: Left shoulder scar, right knee vertical scar, right knee tenderness with minimal swelling NEURO: Decreased sensation right facial distribution, decreased sensation in LLE , 5/5 strength throughout. Laboratory Results - last 24 hr 08/19/18 05:30 Hemoglobin A1c % 5.7 Active Medications Generic Name Dose Route Start Last Admin Trade Name Freq PRN Reason Stop Dose Admin Acetaminophen 650 mg 08/17/18 11:10 Tylenol - PO Q6H PRN HEADACHE Aspirin 81 mg 08/17/18 13:00 08/19/18 11:27 Ecotrin - PO 81 mg DAILY BERTRAM Administration Atorvastatin Calcium 10 mg 08/17/18 22:00 08/18/18 21:52 Lipitor - PO 10 mg HS BERTRAM Administration Cholecalciferol 2,000 unit 08/17/18 13:00 08/19/18 11:26 Vitamin D3 - PO 2,000 unit DAILY BERTRAM Administration Gabapentin 100 mg 08/17/18 14:00 08/19/18 05:44 Neurontin - PO 100 mg TID BERTRAM Administration Heparin Sodium (Porcine) 5,000 unit 08/17/18 12:00 08/19/18 05:44 Heparin - SQ 5,000 unit TID BERTRAM Administration Magnesium Oxide 400 mg 08/17/18 13:00 08/19/18 11:26 Mag-Ox - PO 400 mg DAILY BERTRAM Administration Metoprolol Succinate 50 mg 08/18/18 15:00 08/19/18 11:26 Toprol Xl - PO 50 mg DAILY BERTRAM Administration Non-Formulary Medication 1 drop 08/17/18 13:40 Dorzolamide/Timolol/Pf [Dorzolamide-Timolol 2%-0.5%] OP BID BERTRAM Non-Formulary Medication 1 drop 08/17/18 22:00 Latanoprost/Pf [Latanoprost 0.005% Eye Drop] OP [facility] ASSESSMENT/PLAN:
--- NOTE | 2018-08-19 13:56 | DS ---
Physical Exam: SUBJECTIVE: Patient seen and examined this AM. Complaining of back and right leg pain. Also complaining of headache, denies any weakness or dizziness. OBJECTIVE: Vital Signs Period Temp Pulse Resp BP Sys/Coronel Pulse Ox Last 24 Hr 97.7 F-98.9 F 56-68 18-20 122-139/58-96 97-97 PHYSICAL EXAM GEN: Alert, oriented X3, no acute distress HEENT: Right pupil deformity, left pupil reactive to light, moist mucus membranes, NECK: no carotid bruit HEART: regular rate and rhythm, no murmurs noted LUNGS: CTA b/l, no wheezes or rhonchi noted ABDOMEN: Soft, obese, nontender, normoactive bowel sounds EXTREMITIES: Left shoulder scar, right knee vertical scar, right knee tenderness with minimal swelling NEURO: Decreased sensation right facial distribution, decreased sensation in LLE , 5/5 strength throughout. LABS Laboratory Results - last 24 hr 08/19/18 05:30 Hemoglobin A1c % 5.7 HOSPITAL COURSE: Date of Admission:08/19/18 Date of Discharge: 08/19/18 Pt was admitted for episode of weakness and incoherent speech, found to have new small acute/subacute lacunar infarct in the left frontal lobe. Weakness and speech improved. Pt medically safe for discharge at this time with home PT. Discharge Summary Reason For Visit: TRANSIENT ISCHEMIC ATTACK Current Active Problems Altered mental state (Acute) TIA (transient ischemic attack) (Acute) Condition: Guarded - Instructions - Home Medications Comprehensive Discharge Medication List: Ambulatory Orders Atorvastatin Ca [Lipitor] 10 mg PO HS 08/17/18 Cholecalciferol (Vitamin D3) [Vitamin D3] 2,000 unit PO DAILY 08/17/18 Dorzolamide/Timolol/Pf [Dorzolamide-Timolol 2%-0.5%] 1 each OP BID 08/17/18 Gabapentin 100 mg PO TID 08/17/18 Latanoprost/Pf [Latanoprost 0.005% Eye Drop] 7.5 ml OP DAILY 08/17/18 Magnesium Oxide [Mag-Ox -] 400 mg PO DAILY 08/17/18 Metoprolol Succinate 50 mg PO DAILY 08/17/18
--- NOTE | 2018-08-19 14:38 | PN ---
Teaching Attending Note Name of Resident: Garcia Puentes ATTENDING PHYSICIAN STATEMENT I saw and evaluated the patient. I reviewed the resident's note and discussed the case with the resident. I agree with the resident's findings and plan as documented. SUBJECTIVE: no fever or chills .No weakness, tingling or weakness. chronci posterior STOUT. not changed. no visual changes . R knee pain ( chronic ) OBJECTIVE: NAD, awake, alert, oriented x 3. CV: RRR, 2/6 Sm at LUSB , with no radiation . no JVD Lungs: CTAB Ext : no edema or erythema Neuro: EOMI, round L pupil, R pupil is deformed. no facial droop is noted at this time. tongue at mid line. Decreased sensation to light touch on R side of the face. strength 5/5 in upper and lower extremities proximally and distally. sensation to light touch : sensation to light touch is Normal today DTR: 2+ L knee jerk, unable to get R knee jerk. biceps 1+ bilaterally ASSESSMENT AND PLAN: 67 y/o lady with h/o hemorrhagic stroke, documented brain aneurysm, HTN, h/o DM ( not on meds) , chronic STOUT , Lower back apain, R knee replacement with chronic pain, appendectomy with complications, and frequent visits to ER with STOUT and dizziness, who presented this time with an episode of aphasia and facial droop . 1- Acute L frontal stroke: - no new deficits . sx resolved - Echo reviewed. - cont ASA - cont lipitor - tele with no events . need prolonged monitor as out pt - EEG done. f/u with neuro for report 2- h/o HTN: cont metorpolol 3- h/o DM. - A1c indicates prediabetes. will benefit form Mtformin as out pt . will start at dc will dc home today. Not seen by PT yet. resident to walk with patient for evaluation . Home PT is set by social media analyst f/u with PCP, Card , and neuro
--- NOTE | 2018-08-19 15:12 | DS ---
Physical Exam: SUBJECTIVE: Patient seen and examined this AM. She is complaining of back pain which she states is chronic and a headache which she states she has had for a few days. She endorses trying not to take the tylenol yet until she needs it more. She also endorses right thigh swelling. Denies any weakness, dizziness, SOB, chest pain, palpitations. OBJECTIVE: Vital Signs Period Temp Pulse Resp BP Sys/Coronel Pulse Ox Last 24 Hr 97.7 F-98.9 F 56-68 18-20 122-139/58-96 97-97 PHYSICAL EXAM GEN: Alert, oriented X3, no acute distress HEENT: Right pupil deformity, left pupil reactive to light, moist mucus membranes, NECK: no carotid bruit HEART: regular rate and rhythm, no murmurs noted LUNGS: CTA b/l, no wheezes or rhonchi noted ABDOMEN: Soft, obese, nontender, normoactive bowel sounds EXTREMITIES: Left shoulder scar, right knee vertical scar, right knee tenderness with minimal swelling NEURO: Decreased sensation right facial distribution, decreased sensation in LLE , 5/5 strength throughout. 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 Per pt and grandson at bedside, pt went to bed feeling well at 11:30 PM. At 5:30 am grandswetha was awakened to her yelling incoherently. Per patient, she went to the restroom and became very weak while on the toilet. Grandson states he found her slumped to her right side leaning on the wall unable to speak. Pt states she was aware and wanted to speak but was unable to form words. Grandson states this lasted about 15-20 min until EMS arrived at which point she was able to mouth words but not speak clearly. Per record, EMS found her speaking clearly and AAOx3, as did initial eval in ED. Denies dizziness, headache, nausea, vomiting, diarrhea, chest pain. Pt was not a TPA candidate. Of note, pt has had numerous episodes of dizziness while using the toilet. Hospital Course: Pt was admitted for episode of weakness and incoherent speech, seen by neurology , found to have new small acute/subacute lacunar infarct in the left frontal lobe on Brain MRI. No events noted on telemetry monitoring. TTE without any concerning findings or thrombi. MRA brain and neck without any concerning findings. Weakness and speech improved. Pt medically safe for discharge at this time with home PT. Pt was instructed to follow up with PCP, neurology, and cardiology for further managament as an outpatient. Home medications including asa 81 were continued. Pt was found to have A1C of 5.7. Started on Metformin 500 mg PO Daily on discharge. Minutes to complete discharge: 35 Discharge Summary Reason For Visit: TRANSIENT ISCHEMIC ATTACK Current Active Problems CVA (cerebrovascular accident) (Acute) Condition: Improved - Instructions Diet, Activity, Other Instructions: You were admitted to the hospital because you had a stroke. You had weakness and speech difficulty which have now resolved. You were seen by a neurologist who recommended brain imaging which revealed a small stroke in your frontal lobe. You had an ultrasound of your heart which did not reveal any concerning findings. At this point you are improved and stable to be discharged home with home physical therapy. Follow ups: You should follow up with your primary care physician within one week of discharge from the hospital. You should follow up with a neurologist within 2 weeks of discharge from the hospital. The information for the neurologist who saw you here is included in your discharge packet. You should follow up with a fiberglass boat builder who may want to run some testing on your heart including a monitor which you wear at home to evaluate for any abnormal heart rhythms which were not picked up during your stay in the hospital. The name of a fiberglass boat builder who has seen you here in the past has been provided in your discharge packet in case you do not have a fiberglass boat builder. ( Dr. short) Medications: You should continue taking all of your home medications as they were prescribed prior to this hospitalization. Aspirin is added to your home medications . it is over the counter , so always take it . you don't need a prescription If you have any new weakness, slurred speech, or any other concerning symptoms, you should be seen by your doctor or return to the emergency department for further evaluation. Referrals: Kalee Caceres MD [Primary Care Provider] - KadkTrent Parry MD [Staff Physician] - Bobo Short MD [Staff Physician] - Disposition: VNS/HOME HEALTH CARE - Home Medications Comprehensive Discharge Medication List: Ambulatory Orders Atorvastatin Ca [Lipitor] 10 mg PO HS 08/17/18 Cholecalciferol (Vitamin D3) [Vitamin D3] 2,000 unit PO DAILY 08/17/18 Dorzolamide/Timolol/Pf [Dorzolamide-Timolol 2%-0.5%] 1 each OP BID 08/17/18 Gabapentin 100 mg PO TID 08/17/18 Latanoprost/Pf [Latanoprost 0.005% Eye Drop] 7.5 ml OP DAILY 08/17/18 Magnesium Oxide [Mag-Ox -] 400 mg PO DAILY 08/17/18 Metoprolol Succinate 50 mg PO DAILY 08/17/18 Aspirin Coated [Ecotrin -] 81 mg PO DAILY tablet.ec 08/19/18 Metformin HCl [Metformin HCl ER] 500 mg PO DAILY #30 tab.er.24h 08/19/18 This patient is new to me today: Yes Date on this admission: 08/19/18 Emergency Visit: Yes ED Registration Date: 08/19/18 Care time: The patient presented to the Emergency Department on the above date and was hospitalized for further evaluation of their emergent condition. Critical Care patient: No - Discharge Referral Referred to [facility] No
== END 2018-08-19 16:40 | disposition home health service (06) | DRG 66 ==
LOC: JER 05:58 → JERBED 10:07 → J4W 16:43 → OBSVTOIN 08-19 11:23
PROVIDERS: ADMIT Internal Medicine; ATTEND Internal Medicine
PROC: 4A10X4Z Monitoring of Central Nervous Electrical Activity, External Approach (ICD-10-PCS; principal; 2018-08-19)
DX: I63.89 Other cerebral infarction (principal); I10 Essential (primary) hypertension; H40.9 Unspecified glaucoma; E11.9 Type 2 diabetes mellitus without complications; R29.702 NIHSS score 2; E78.5 Hyperlipidemia, unspecified; I34.0 Nonrheumatic mitral (valve) insufficiency; R47.01 Aphasia; R29.810 Facial weakness; R51 Headache; M54.5 Low back pain; Z96.651 Presence of right artificial knee joint
CPT/HCPCS: 36415; 70450-TC; 70544-TC; 70547-TC; 70551-TC; 71045-TC-FY; 80053; 80061; 81003; 82465; 82550; 82553; 83036; 83718; 83721; 83735; 84100; 84478; 84484; 85025; 85610; 93005; 93010; 93306-TC; 95816; 97116-GP; 97161-GP; 99285-25; G0378; J1644; J7030

== ENCOUNTER 2018-09-25 19:01 | Inpatient (IN) | payer OTHER | END 2018-09-26 17:15 | disposition home or self-care (01) | LOC: JER 19:01 → JERBED 23:29 ==

== ENCOUNTER 2018-10-30 09:49 | Emergency (ER) | payer OTHER ==
[2018-10-30 09:59] VITALS: BP 129/62; PULSE 73; TEMP 98.8; BMI 28.1
[2018-10-30 11:25] LABS: PH,URINE >= 9.0 (5.0-8.0); URINE APPEARANCE TURBID; URINE BILIRUBIN NEGATIVE (NEGATIVE); URINE COLOR YELLOW; URINE GLUCOSE (UA) NEGATIVE (NEGATIVE); URINE KETONE NEGATIVE (NEGATIVE); URINE LEUK ESTERASE NEGATIVE (NEGATIVE); URINE NITRITE NEGATIVE (NEGATIVE); URINE PROTEIN NEGATIVE (NEGATIVE)
--- NOTE | 2018-10-30 12:27 | PDOC ---
Documentation entered by Kim Barlow SCRIBE, acting as scribe for Saeed Boyd MD. Saeed Boyd MD: This documentation has been prepared by the Cain murry Adrianna, SCRIBE, under my direction and personally reviewed by me in its entirety. I confirm that the documentation accurately reflects all work, treatment, procedures, and medical decision making performed by me. History of Present Illness - General Chief Complaint: Injury Stated Complaint: FALL/ ABD. 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 Patient notes she fell out of bed around 2am this morning, but is unsure of how. She reports hitting the left side of her head and woke up on the floor. Patient denies hitting any other body parts, but endorses left sided head pain and low back pain. Patient complains of bilateral LE pain, but this is chronic and is present at baseline. She additionally reports lower abdominal pain secondary to vaginal bleeding for 2 weeks, which she has been followed up for at an UC and referred to be evaluated by gyno (appointment at the end of the month). Denies being on ACs. Allergies: NKA Past surgical history: L shoulder, R knee, lap appy converted to Ex lap, cataract Social history: Yazidi PCP: Dr. Kalee Caceres 10/30/18 11:13 Past History - Past Medical History Allergies/Adverse Reactions: Allergies Allergy/AdvReac Type Severity Reaction Status Date / Time No Known Allergies Allergy Verified 09/25/18 19:35 Home Medications: Ambulatory Orders Aspirin 81 mg PO DAILY 10/30/18 Atorvastatin Ca [Lipitor] 10 mg PO HS 10/30/18 Cholecalciferol (Vitamin D3) [Vitamin D3] 2,000 unit PO DAILY 10/30/18 Cholecalciferol (Vitamin D3) [Vitamin D] 2,000 unit PO DAILY 10/30/18 Divalproex [Depakote -] 250 mg PO BID 10/30/18 Docusate Sodium [Colace Clear] 100 mg PO DAILY 10/30/18 Gabapentin 300 mg PO DAILY 10/30/18 Metformin HCl [Glucophage] 500 mg PO DAILY 10/30/18 Metoprolol Succinate 50 mg PO DAILY 10/30/18 Pramipexole Di-HCl [Mirapex] 0.25 mg PO DAILY 10/30/18 Topiramate 25 mg PO HS 10/30/18 Cardiac Disorders: Yes (mitral valve regurgitation) CVA: Yes (NO RESIDUAL WEAKNESS.) COPD: No Diabetes: Yes (pre diabetic) HTN: Yes Hypercholesterolemia: Yes - Surgical History Abdominal Surgery: Yes (exploratory lap?) Appendectomy: Yes Neurologic Surgery: Yes (brain annurysm) Orthopedic Surgery: Yes (L. Shoulder, R. Knee) - Immunization History Immunization Up to Date: Yes - Suicide/Smoking/Psychosocial Hx Smoking Status: No Smoking History: Never smoked Have you smoked in the past 12 months: No Number of Cigarettes Smoked Daily: 0 Cigars Per Day: 0 Information on smoking cessation initiated: No Hx Alcohol Use: No Drug/Substance Use Hx: No Substance Use Type: None Hx Substance Use Treatment: No Trauma Specific PMHX - Complaint Specific PMHX Arthritis: Yes Review of Systems - Review of Systems Comments:: CONSTITUTIONAL: No fever, no chills, no fatigue EYES: No visual changes ENT: No ear pain, no sore throat CARDIOVASCULAR: No chest pain, no palpitations RESPIRATORY: No cough, no SOB GI: +Lower abdominal pain secondary to vaginal bleeding. No nausea, no vomiting , no constipation, no diarrhea GENITOURINARY: No dysuria, no frequency, no hematuria MUSKULOSKELETAL: +Low back pain. +Left-sided head pain. +Chronic bilateral LE pain. No joint pain, no myalgias SKIN: No rash NEURO: No headache 10/30/18 11:13 *Physical Exam - Vital Signs Last Vital Signs Temp Pulse Resp BP Pulse Ox 98.8 F 73 16 129/62 100 10/30/18 09:53 10/30/18 09:53 10/30/18 09:53 10/30/18 09:53 10/30/18 09:53 - Physical Exam Comments: CONSTITUTIONAL: Well-appearing; well-nourished; in no apparent distress HEAD: +Reproducible left temporoparietal tenderness to palpation. No bony crepitus or step off. Normocephalic; atraumatic EYES: +Bilateral pupils are irregular and nonreactive. EOM intact ENMT: External appears normal; normal oropharynx NECK: Supple; non-tender; no cervical lymphadenopathy CARD: Normal S1, S2; no murmurs, rubs, or gallops RESP: Normal chest excursion with respiration; breath sounds clear and equal bilaterally; no wheezes, rhonchi, or rales ABD: Soft, non-distended; non-tender; no palpable organomegaly, no palpable hernias EXT: Normal ROM in all four extremities; non-tender to palpation; distal pulses intact SKIN: Warm, dry, no rash NEURO: No focal neurological deficiencies. 10/30/18 11:55 ED Treatment Course - ADDITIONAL ORDERS Additional order review: Laboratory Results 10/30/18 11:15 Urine Color Yellow Urine Appearance Turbid Urine pH >= 9.0 H Ur Specific [place] 1.015 Urine Protein Negative Urine Glucose (UA) Negative Urine Ketones Negative Urine Blood Negative Urine Nitrite Negative Urine Bilirubin Negative Urine Urobilinogen 1.0 Ur Leukocyte Esterase Negative - RADIOLOGY Radiology Studies Ordered: Category Date Time Status HEAD CT WITHOUT CONTRAST [CT] Stat CT Scan 10/30/18 11:00 Completed Radiograph Interpretation: EXAM#: TYPE/EXAM: RESULT: [id number] CT/HEAD CT WITHOUT CONTRAST Status post trauma. Headache. Impression: No evidence of acute intracranial hemorrhage, edema, hydrocephalus. No evidence of skull fracture. No CT evidence of acute territorial ischemic changes. Post hemorrhagic right frontal lobe encephalomalacia. Moderate supratentorial chronic white matter microangiopathic ischemic changes, gliosis. No interval change in comparison to prior CTs of the brain. Reported By: Ramso South MD 10/30/18 12:22 Medical Decision Making - Medical Decision Making 10/30/18 12:27 Patient is a 68-year-old female with previous history of aneurysmal intracerebral hemorrhage, hypertension presents to the ER with traumatic left sided frontal headache after falling off her bed. Patient also complains of persistent bilateral lower extremity pain related to chronic low back pain as well as intermittent vaginal bleeding for which she is scheduled to be evaluated by [employer] [employer]EL[employer]. On initial evaluation, patient is awake and alert, GCS-15. Minimal reproducible left frontal, temporoparietal tenderness to palpation is appreciated. There is no bony crepitus or step-offs. CT of head shows no evidence of acute intracranial pathology. Urinalysis within normal limit. Serial abdominal exams reveal no focal tenderness. No further testing is indicated in the ER at this time. Will discharge with head injury instructions, with [employer] [employer]EL[employer] follow-up as scheduled *DC/Admit/Observation/Transfer Diagnosis at time of Disposition: Head injury, closed Qualifiers: Encounter type: initial encounter Qualified Code(s): S09.90XA - Unspecified injury of head, initial encounter Abdominal pain Qualifiers: Abdominal location: unspecified location Qualified Code(s): R10.9 - Unspecified abdominal pain - Discharge Dispostion Disposition: HOME Condition at time of disposition: Stable - Referrals Referrals: Kalee Caceres MD [Primary Care Provider] - - Patient Instructions Printed Discharge Instructions: DI for Abdominal Pain-Adult, DI for Closed Head Injury - Post Discharge Activity - Attestations Physician Attestion: 10/30/18 12:25 The documentation was prepared by the scribe under my direct supervision. I have reviewed the documentation which correctly represents the findings, medical decision-making and critical action taken by me.
--- NOTE | 2018-10-30 14:08 | EKG ---
Test Reason : Blood Pressure : / mmHG Vent. Rate : 065 BPM Atrial Rate : 065 BPM P-R Int : 210 ms QRS Dur : 092 ms QT Int : 398 ms P-R-T Axes : 032 054 032 degrees QTc Int : 413 ms SINUS RHYTHM WITH 1ST DEGREE A-V BLOCK OTHERWISE NORMAL ECG WHEN COMPARED WITH ECG OF 25-SEP-2018 19:33, NO SIGNIFICANT CHANGE WAS FOUND Confirmed by GATITO AGGARWAL, NAYELI ([id number]) on 10/30/2018 2:08:38 PM Referred By: Confirmed By:NAYELI MEDEROS MD
== END 2018-10-30 12:50 | disposition home or self-care (01) ==
LOC: JER 09:49
DX: S09.90XA Unspecified injury of head, initial encounter (principal); R10.9 Unspecified abdominal pain; I10 Essential (primary) hypertension; R73.03 Prediabetes; I34.0 Nonrheumatic mitral (valve) insufficiency; E78.00 Pure hypercholesterolemia, unspecified; W06.XXXA Fall from bed, initial encounter; Y93.9 Activity, unspecified; Y92.009 Unspecified place in unspecified non-institutional (private) residence as the place of occurrence of the external cause; Z86.73 Personal history of transient ischemic attack (TIA), and cerebral infarction without residual deficits
CPT/HCPCS: 70450-TC; 81003; 87086; 93005; 93010; 99282-25

== ENCOUNTER 2018-11-09 03:39 | Emergency (ER) | payer OTHER ==
--- NOTE | 2018-11-09 04:21 | PDOC ---
Attending Attestation - Resident Resident Name: Cornell Bal - ED Attending Attestation I have performed the following: I have examined & evaluated the patient, The case was reviewed & discussed with the resident, I agree w/resident's findings & plan - HPI HPI: 11/09/18 05:25 Pt comes with headache that woke her from sleep. She leeps having this, and she keeps coming to the ER, because in the past she had a bleed in her brain. Now she has had 5 CT head in the last 4 months and she returns again. She has a normal neuro exam. She will be treated for her STOUT. She took tylenolfor her STOUT. We will treat with benadryl and reglan IM. She has normal vitals and normal equal BP in both arms. She will be treated medically and asked to follow with her Neurologist outpatient. - Physicial Exam PE: 11/09/18 05:35 Normal exam. Normal vitals 11/09/18 05:48 Normal neuro exam. Pt A+Ox3 - Medical Decision Making 11/09/18 05:49 Follow up outpatient with Dr. Khan and with PMD. 11/09/18 07:13 I explained to patient and her nephew that she has had 5 head CTs in 4 mos and that she ought not to get another. Too much radiation. And with normal exam and vitals it is not indicated. I will pass on getting labs, as recent labs are normal. Pt will follow with her PMD and her neurologist.
[2018-11-09 04:55] VITALS: BP 135/67; PULSE 58; TEMP 98.7; BMI 31.8
--- NOTE | 2018-11-09 05:06 | PDOC ---
History of Present Illness - General Stated Complaint: HEADACHE Time Seen by Provider: 11/09/18 04:21 History Source: Patient Exam Limitations: No Limitations - History of Present Illness Initial Comments: 11/09/18 05:03 68 yo female pmh HTN, pre DM, glaucoma, cataracts, headaches and brain bleed 2015. Pt Woken up from sleep with pounding 10/10, pulsating STOUT, took 1000mg tylenol, no relief. Nephew at bedside states pt appears confused for the past 1 month since starting a new medication from Neurologist (Dr. Khan) which was DC on Sunday after seeing him Past History - Past Medical History Allergies/Adverse Reactions: Allergies Allergy/AdvReac Type Severity Reaction Status Date / Time No Known Allergies Allergy Verified 09/25/18 19:35 Home Medications: Ambulatory Orders Aspirin 81 mg PO DAILY 10/30/18 Atorvastatin Ca [Lipitor] 10 mg PO HS 10/30/18 Cholecalciferol (Vitamin D3) [Vitamin D3] 2,000 unit PO DAILY 10/30/18 Cholecalciferol (Vitamin D3) [Vitamin D] 2,000 unit PO DAILY 10/30/18 Divalproex [Depakote -] 250 mg PO BID 10/30/18 Docusate Sodium [Colace Clear] 100 mg PO DAILY 10/30/18 Gabapentin 300 mg PO DAILY 10/30/18 Metformin HCl [Glucophage] 500 mg PO DAILY 10/30/18 Metoprolol Succinate 50 mg PO DAILY 10/30/18 Pramipexole Di-HCl [Mirapex] 0.25 mg PO DAILY 10/30/18 Topiramate 25 mg PO HS 10/30/18 Cardiac Disorders: Yes (mitral valve regurgitation) CVA: Yes (NO RESIDUAL WEAKNESS.) COPD: No Diabetes: Yes (pre diabetic) HTN: Yes Hypercholesterolemia: Yes - Surgical History Abdominal Surgery: Yes (exploratory lap?) Appendectomy: Yes Neurologic Surgery: Yes (brain annurysm) Orthopedic Surgery: Yes (L. Shoulder, R. Knee) - Immunization History Immunization Up to Date: Yes - Suicide/Smoking/Psychosocial Hx Smoking Status: No Smoking History: Never smoked Have you smoked in the past 12 months: No Number of Cigarettes Smoked Daily: 0 Cigars Per Day: 0 Information on smoking cessation initiated: No Hx Alcohol Use: No Drug/Substance Use Hx: No Substance Use Type: None Hx Substance Use Treatment: No *Physical Exam - Vital Signs Last Vital Signs Temp Pulse Resp BP Pulse Ox 98.7 F 58 L 20 135/67 99 11/09/18 04:36 11/09/18 04:36 11/09/18 04:36 11/09/18 04:36 11/09/18 04:36 *DC/Admit/Observation/Transfer Diagnosis at time of Disposition: Headache - Discharge Dispostion Disposition: HOME Condition at time of disposition: Stable Decision to Admit order: No - Referrals Referrals: Kalee Caceres MD [Primary Care Provider] - - Patient Instructions Printed Discharge Instructions: DI for Headache Additional Instructions: Please see your Neurologist and Primary Doctor within the next 48 hours. Take your home dosed medications as prescribed. Return to the ER for new or concerning symptoms including but not limited to: headaches, changes in vision, weakness or sensory changes on 1 side of your body. Thank you - Post Discharge Activity
[2018-11-09] MEDS ORDERED: METOCLOPRAMIDE HCL INJECTION 10 MG/2 ML VIAL IM ONE (05:25)
[2018-11-09] MEDS ORDERED: diphenhydrAMINE HCL 50 MG CAPSULE PO ONE (05:25)
[2018-11-09] MEDS ORDERED: METOCLOPRAMIDE HCL INJECTION 10 MG/2 ML VIAL ONE (05:37)
[2018-11-09] MEDS ORDERED: diphenhydrAMINE HCL 25 MG CAPSULE (FP) PO ONE (05:37)
== END 2018-11-09 05:56 | disposition home or self-care (01) ==
LOC: JER 03:39
PROC: 3E023GC Introduction of Other Therapeutic Substance into Muscle, Percutaneous Approach (ICD-10-PCS; principal; 2018-11-09)
DX: R51 Headache (principal); R73.03 Prediabetes; E78.00 Pure hypercholesterolemia, unspecified; Z86.73 Personal history of transient ischemic attack (TIA), and cerebral infarction without residual deficits
CPT/HCPCS: 96372; 99281-25

== ENCOUNTER 2019-02-25 16:08 | Emergency (ER) | payer OTHER ==
--- NOTE | 2019-02-25 16:19 | PDOC ---
Rapid Medical Evaluation Time Seen by Provider: 02/25/19 16:17 Medical Evaluation: Allergies Allergy/AdvReac Type Severity Reaction Status Date / Time No Known Allergies Allergy Verified 09/25/18 19:35 02/25/19 16:17 I have performed a brief in-person evaluation of this patient. The patient presents with a chief complaint of: elevated BP per VNS this morning , 179/99. compliant with meds. headache since this morning. denies vision changes, SOB, chest pain. dc yesterday from [facility] . hx of brain aneurysm Pertinent physical exam findings: no focal neuro deficits, pulses 2+ b/l. I have ordered the following: ekg, labs The patient will proceed to the ED for further evaluation. Discharge Disposition - Diagnosis Headache, Hypertension - Referrals - Patient Instructions - Post Discharge Activity
[2019-02-25 16:22] VITALS: BMI 32.2
[2019-02-25 17:03] LABS: BASO % 0.7 % (0-2.0); EOS % 0.5 % (0-4.5); HEMATOCRIT 35.4 % (32.4-45.2); HEMOGLOBIN 11.9 GM/dL (10.7-15.3); LYMPH % 32.5 % (8-40); MCHC 33.5 g/dl (32.0-36.0); MEAN CELL VOLUME 89.7 fl (80-96); MEAN PLT VOLUME 9.5 fl (7.5-11.1); MONO % 8.3 % (3.8-10.2); PLATELET COUNT 356 K/MM3 (134-434); RBC 3.95 M/mm3 (3.60-5.2); RDW 14.5 % (11.6-15.6); WHITE BLOOD COUNT 5.4 K/mm3 (4.0-10.0)
[2019-02-25 17:28] LABS: ALK PHOS 66 U/L (45-117); ANION GAP 5 MMOL/L (8-16); BILIRUBIN,TOTAL 0.4 mg/dL (0.2-1); BLOOD UREA NITROGEN 12.6 mg/dL (7-18); CALCIUM 9.6 mg/dL (8.5-10.1); CHLORIDE 106 mmol/L (98-107); CO2 29 mmol/L (21-32); CREATININE 0.8 mg/dL (0.55-1.3); GLUCOSE,RANDOM 100 mg/dL (74-106); POTASSIUM 4.1 mmol/L (3.5-5.1); SGOT/AST 21 U/L (15-37); SGPT/ALT 28 U/L (13-61); SODIUM 139 mmol/L (136-145); TOT PROT 8.4 g/dl (6.4-8.2)
[2019-02-25] MEDS ORDERED: METOCLOPRAMIDE HCL INJECTION 10 MG/2 ML VIAL IVPB ONE (17:32)
[2019-02-25] MEDS ORDERED: SODIUM CHLORIDE 500 ML IV STA (17:32)
[2019-02-25] MEDS ORDERED: METOCLOPRAMIDE HCL INJECTION 10 MG/2 ML VIAL ONE (17:44)
--- NOTE | 2019-02-25 18:47 | PDOC ---
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 pt states headache began last night and has been progressively worsened since. she states pain is 8/10 frontal and temporal. she states she doesnt frequently get headaches but last time she had a headache like this she had a stroke. Pt denies weakness, CP, SOB. Pt also states that throughout the day her BP has been elevated , measuring 179/99 at home. she states shes compliant with meds. Past History - Past Medical History Allergies/Adverse Reactions: Allergies Allergy/AdvReac Type Severity Reaction Status Date / Time No Known Allergies Allergy Verified 02/25/19 16:22 Home Medications: Ambulatory Orders Aspirin 81 mg PO DAILY 10/30/18 Cholecalciferol (Vitamin D3) [Vitamin D3] 2,000 unit PO DAILY 10/30/18 Docusate Sodium [Colace Clear] 100 mg PO DAILY 10/30/18 Gabapentin 600 mg PO HS 10/30/18 Pramipexole Di-HCl [Mirapex] 0.25 mg PO HS 10/30/18 Latanoprost 0.005% Eye Drops [Xalatan 0.005% Eye Drops -] 1 drop OU HS 02/25/19 Metoprolol Tartrate 50 mg PO BID 02/25/19 Multivitamin,Therapeutic [Thera] 1 tab PO DAILY 02/25/19 Rosuvastatin Calcium 5 mg PO HS 02/25/19 Vit C/Dietary Supplement No.18 [Red Wine Extract Plus Capsule] 1 tab PO DAILY oxyCODONE HCL [Roxicodone -] 5 mg PO TID 02/25/19 Cardiac Disorders: Yes (mitral valve regurgitation) CVA: Yes (NO RESIDUAL WEAKNESS.) COPD: No Diabetes: Yes (pre diabetic) HTN: Yes Hypercholesterolemia: Yes - Surgical History Abdominal Surgery: Yes (exploratory lap?) Appendectomy: Yes Neurologic Surgery: Yes (brain annurysm) Orthopedic Surgery: Yes (L. Shoulder, R. Knee) - Immunization History Immunization Up to Date: Yes - Psycho Social/Smoking Cessation Hx Smoking Status: No Smoking History: Never smoked Have you smoked in the past 12 months: No Number of Cigarettes Smoked Daily: 0 Cigars Per Day: 0 Information on smoking cessation initiated: No Hx Alcohol Use: No Drug/Substance Use Hx: No Substance Use Type: None Hx Substance Use Treatment: No Review of Systems - Review of Systems Constitutional: No: Diaphoresis, Fever Respiratory: No: Shortness of Breath Cardiac (ROS): No: Chest Pain, Lightheadedness, Palpitations, Syncope, Chest Tightness ABD/GI: No: Constipated, Diarrhea, Nausea, Vomiting Neurological: Yes: Headache, Unsteady Gait (chronic ). No: Numbness, Tingling, Weakness, Dizziness *Physical Exam - Vital Signs Last Vital Signs Temp Pulse Resp BP Pulse Ox 97.9 F 79 18 164/71 100 02/25/19 16:20 02/25/19 16:20 02/25/19 16:20 02/25/19 16:20 02/25/19 16:20 - Physical Exam General Appearance: Yes: Nourished, Appropriately Dressed. No: Apparent Distress HEENT: positive: EOMI, YENI, Pharynx Normal Respiratory/Chest: positive: Lungs Clear, Normal Breath Sounds. negative: Respiratory Distress, Accessory Muscle Use, Crackles, Wheezing Cardiovascular: positive: Regular Rhythm, Regular Rate, S1, S2 Gastrointestinal/Abdominal: positive: Normal Bowel Sounds, Soft. negative: Tender, Distended Extremity: positive: Normal Inspection Integumentary: positive: Normal Color, Dry, Warm. negative: Swelling Neurologic: positive: supply assistant II-XII NML intact, Fully Oriented, Motor Strength 5/5 (b/l) ED Treatment Course - LABORATORY CBC & Chemistry Diagram: 02/25/19 16:47 02/25/19 16:47 - ADDITIONAL ORDERS Additional order review: Laboratory Results 02/25/19 02/25/19 16:47 16:47 Sodium 139 Potassium 4.1 Chloride 106 Carbon Dioxide 29 Anion Gap 5 L BUN 12.6 Creatinine 0.8 Est GFR (CKD-EPI)AfAm 88.42 Est GFR (CKD-EPI)NonAf 76.29 Random Glucose 100 Calcium 9.6 Magnesium 2.4 Total Bilirubin 0.4 AST 21 ALT 28 Alkaline Phosphatase 66 Creatine Kinase 294 H Creatine Kinase Index 0.7 CK-MB (CK-2) 2.2 Troponin I < 0.02 Total Protein 8.4 H Albumin 4.0 02/25/19 16:47 RBC 3.95 MCV 89.7 MCHC 33.5 RDW 14.5 MPV 9.5 Neutrophils % 58.0 Lymphocytes % 32.5 Monocytes % 8.3 Eosinophils % 0.5 Basophils % 0.7 - RADIOLOGY Radiology Studies Ordered: Category Date Time Status HEAD CT WITHOUT CONTRAST [CT] Stat CT Scan 02/25/19 18:10 Taken - Medications Given in the ED: ED Medications Discontinued Medications Generic Name Dose Route Start Last Admin Trade Name Hugo PRN Reason Stop Dose Admin Sodium Chloride 500 mls @ 500 mls/hr 02/25/19 17:32 02/25/19 18:36 Normal Saline - IV 02/25/19 18:31 500 mls/hr ASDIR STA Administration Metoclopramide HCl 10 mg 02/25/19 17:32 02/25/19 17:54 Reglan Injection - IVPB 02/25/19 17:33 10 mg ONCE ONE Administration Medical Decision Making - Medical Decision Making 02/25/19 18:50 68 yo F presenting with headache and elevated BP -CT head -EKG reviewed, NSR -CBC, CMP reviewed -reglan -500 ml bolus 02/25/19 18:51 Discharge - Discharge Information Problems reviewed: Yes Clinical Impression/Diagnosis: Headache Qualifiers: Headache type: tension-type Headache chronicity pattern: acute headache Intractability: not intractable Qualified Code(s): G44.209 - Tension-type headache, unspecified, not intractable Hypertension Qualifiers: Hypertension type: essential hypertension Qualified Code(s): I10 - Essential ( primary) hypertension Condition: Good - Follow up/Referral - Patient Discharge Instructions Patient Printed Discharge Instructions: DI for High Blood Pressure Additional Instructions: You came into the hospital for a headache and elevated blood pressure. - Post Discharge Activity
[2019-02-25 19:42] LABS: INR 1.08 (0.83-1.09); PROTHROMBIN TIME (PATIENT) 12.7 SEC (9.7-13.0)
[2019-02-25 19:46] VITALS: TEMP 98.1
--- NOTE | 2019-02-25 19:46 | PDOC ---
*Physical Exam - Vital Signs Last Vital Signs Temp Pulse Resp BP Pulse Ox 97.9 F 79 18 164/71 100 02/25/19 16:20 02/25/19 16:20 02/25/19 16:20 02/25/19 16:20 02/25/19 16:20 ED Treatment Course - LABORATORY CBC & Chemistry Diagram: 02/25/19 16:47 02/25/19 16:47 - ADDITIONAL ORDERS Additional order review: Laboratory Results 02/25/19 02/25/19 16:47 16:47 Sodium 139 Potassium 4.1 Chloride 106 Carbon Dioxide 29 Anion Gap 5 L BUN 12.6 Creatinine 0.8 Est GFR (CKD-EPI)AfAm 88.42 Est GFR (CKD-EPI)NonAf 76.29 Random Glucose 100 Calcium 9.6 Magnesium 2.4 Total Bilirubin 0.4 AST 21 ALT 28 Alkaline Phosphatase 66 Creatine Kinase 294 H Creatine Kinase Index 0.7 CK-MB (CK-2) 2.2 Troponin I < 0.02 Total Protein 8.4 H Albumin 4.0 02/25/19 16:47 RBC 3.95 MCV 89.7 MCHC 33.5 RDW 14.5 MPV 9.5 Neutrophils % 58.0 Lymphocytes % 32.5 Monocytes % 8.3 Eosinophils % 0.5 Basophils % 0.7 - Medications Given in the ED: ED Medications Discontinued Medications Generic Name Dose Route Start Last Admin Trade Name Freq PRN Reason Stop Dose Admin Sodium Chloride 500 mls @ 500 mls/hr 02/25/19 17:32 02/25/19 18:36 Normal Saline - IV 02/25/19 18:31 500 mls/hr ASDIR STA Administration Metoclopramide HCl 10 mg 02/25/19 17:32 02/25/19 17:54 Reglan Injection - IVPB 02/25/19 17:33 10 mg ONCE ONE Administration Medical Decision Making - Medical Decision Making Pt was signed out to me by resident Dr. Aceves, who explained the presentation, ED course, any pending results, and needed interventions. Pending results include CT head. Pt is currently stable and is lying comfortably. 02/25/19 19:47 CT head showed SAH along L frontal convexity Spoke with Neurosurgery (Dr. Reeves) who recommended transfer to tertiary center as pt has hemorrhage with hx of aneurysm. Pt was admitted at [facility] ( 2016) for hemorrhagic CVA. 02/25/19 19:47 Pt accepted to [facility] for admission to NSU. Dr. Carey accepting ; NSICU fellow suggested cardine for BP control and 500 mg IV keppra for sz prophylaxis. Started cardine drip and keppra. Pt pending transfer to [facility] [place]. Pt stable and symptoms have improved since interventions. 02/25/19 20:26 Discharge - Discharge Information Problems reviewed: Yes Clinical Impression/Diagnosis: SAH (subarachnoid hemorrhage) Headache Qualifiers: Headache type: tension-type Headache chronicity pattern: acute headache Intractability: not intractable Qualified Code(s): G44.209 - Tension-type headache, unspecified, not intractable Condition: Guarded Disposition: TRANSFER ACUTE CARE/OTHER HOSP - Admission No - Follow up/Referral - Patient Discharge Instructions - Post Discharge Activity - Transfer to Acute Care Facility [facility] Accepting Physician:: Dr. Carey, [facility]
--- NOTE | 2019-02-25 19:50 | PDOC ---
Documentation entered by Nolan Steel SCRIBE, acting as scribe for Lexis Wyatt MD. Lexis Wyatt MD: This documentation has been prepared by the dipeshibeDamián Daniel, SCRIBE, under my direction and personally reviewed by me in its entirety. I confirm that the documentation accurately reflects all work, treatment, procedures, and medical decision making performed by me. Attending Attestation - Resident Resident Name: Tracie Aceves - ED Attending Attestation I have performed the following: I have examined & evaluated the patient, The case was reviewed & discussed with the resident, I agree w/resident's findings & plan, Exceptions are as noted - HPI HPI: 02/25/19 17:32 The patient is a 68 year old female with a past medical history of HTN, glaucoma , cataracts, left frontal ischemic stroke, and hemorrhagic CVA from aneurysm here today for evaluation of headache. The patient reports that she has had a headache since last night that states is an 8/10 in severity and is worsening. As per nursing staff, the patients blood pressure today was 179/99. Patient denies lightheadedness. Denies fever, chills. Denies chest pain, shortness of breath. Denies nausea, vomiting, diarrhea, abdominal pain. Allergies: NKA - Physicial Exam PE: 02/25/19 19:48 Well-nourished well-developed 68-year-old female with complaint of headache that is frontal area and she is noticed some increase in her blood pressure recently Head normocephalic atraumatic Pupils are equal reactive to light and accommodation Neck is no JVD Lungs are clear to auscultation CVS regular rate and rhythm S1-S2 Abdomen is nontender Skin warm and dry Extremities pitting edema, no erythema Neuro alert oriented x3, ambulating with ease, no gross focal neuro deficits - Medical Decision Making 02/25/19 17:59 68 yo female p/w headache And has a past medical history of hypertension, hyperlipidemia, hemorrhagic CVA secondary to an aneurysm and a prior left frontal ischemic stroke CAT scan of the head showed a small amount of acute subarachnoid blood, and right frontal encephalomalacia Spoke with Dr. Lockett and he recommends transfer of this patient to facility that can do angiograms 02/25/19 19:49 02/25/19 19:52 BP 164/71 02/25/19 20:08 Accepting neurosurgeon at [facility] is Dr Carey
[2019-02-25] MEDS ORDERED: levETIRAcetam 500 MG/5 ML INJECTION VIAL IVPB ONE ×2 (19:56→20:04)
[2019-02-25] MEDS ORDERED: NICARDIPINE 25 MG in DEXTROSE 5%-WATER - 240 ML IVPB SCH (20:00)
[2019-02-25] MEDS ORDERED: niCARdipine HCL 25 MG/10 ML AMPUL IVPB ONE (20:04)
[2019-02-25 20:57] VITALS: PULSE 98
[2019-02-25 21:13] VITALS: BP 155/74
== END 2019-02-25 21:20 | disposition short-term general hospital (02) ==
LOC: JER 16:08
PROC: 3E0337Z Introduction of Electrolytic and Water Balance Substance into Peripheral Vein, Percutaneous Approach (ICD-10-PCS; principal; 2019-02-25)
PROC: 3E033GC Introduction of Other Therapeutic Substance into Peripheral Vein, Percutaneous Approach (ICD-10-PCS; 2019-02-25)
PROC: 3E033GC Introduction of Other Therapeutic Substance into Peripheral Vein, Percutaneous Approach (ICD-10-PCS; 2019-02-25)
PROC: 3E033GC Introduction of Other Therapeutic Substance into Peripheral Vein, Percutaneous Approach (ICD-10-PCS; 2019-02-25)
DX: I60.8 Other nontraumatic subarachnoid hemorrhage (principal); I10 Essential (primary) hypertension; G44.209 Tension-type headache, unspecified, not intractable; E11.9 Type 2 diabetes mellitus without complications; R78.5 Finding of other psychotropic drug in blood; I34.0 Nonrheumatic mitral (valve) insufficiency; R26.89 Other abnormalities of gait and mobility; Z86.73 Personal history of transient ischemic attack (TIA), and cerebral infarction without residual deficits
CPT/HCPCS: 36415; 70450-TC; 71046-TC-FY; 80053; 82550; 82553; 83735; 84484; 85025; 85610; 85730; 96361; 96374; 96375; 99285-25

== ENCOUNTER 2019-04-23 09:39 | Emergency (ER) | payer OTHER ==
[2019-04-23] MEDS ORDERED: SODIUM CHLORIDE 1,000 ML IV SCH (09:45)
[2019-04-23 09:47] VITALS: BMI 30.4
[2019-04-23 10:08] VITALS: TEMP 97.9
[2019-04-23] MEDS ORDERED: MANNITOL 25% 12.5 GM/50 ML VIAL IVPB ONE (10:11)
[2019-04-23] MEDS ORDERED: levETIRAcetam 500 MG/5 ML INJECTION VIAL IVPB ONE ×2 (10:12→10:17)
[2019-04-23] MEDS ORDERED: NICARDIPINE 25 MG in DEXTROSE 5%-WATER - 240 ML IVPB SCH (10:15)
[2019-04-23] MEDS ORDERED: niCARdipine HCL 25 MG/10 ML AMPUL IVPB ONE (10:17)
--- NOTE | 2019-04-23 10:47 | PDOC ---
Documentation entered by Felipa Pleitez SCRIBE, acting as scribe for Ayana Emanuel MD. Ayana Emanuel MD: This documentation has been prepared by the Maik murry Xhesika, SCRIBE, under my direction and personally reviewed by me in its entirety. I confirm that the documentation accurately reflects all work, treatment, procedures, and medical decision making performed by me. History of Present Illness - General Chief Complaint: Altered Mental Status Stated Complaint: FALL Time Seen by Provider: 04/23/19 09:43 History Source: Patient Exam Limitations: No Limitations - History of Present Illness Initial Comments: 04/23/19 09:47 The patient is a 68 year old female with a significant PMH of HTN, HLD, hemorrhagic CVA (2/2 aneurysm), prior L frontal ischemic stroke who presents to the emergency department BIBA for AMS. Per aid, she went to see the patient this morning, found the patient on the floor, nonverbal, covered in her vomit. Aid notes at baseline patient is verbal and can speak full sentences. Aid does not know patients last known well. Allergies: NKA Past surgical history: L shoulder, R knee, lap appy converted to Ex lap, cataract Social history: Episcopal PCP: Dr. Kalee Caceres Neurologist: Dr. Khan tPA Exclusion checklist 3-4.5h - Time Elapsed Date last known well: 04/23/19 Time last known well: 22:00 Elaspsed time: 1 Day(s) and 11 Hour(s) and 52 Minutes - Thrombolytic Therapy Candidate Is patient eligible for thrombolytic therapy: No - Exclusion Criteria 3-4.5 hr SBP greater than 185 or DBP greater than 110mmHg despite tx: No Recent IC/spinal surgery,head trauma or stroke<3mos.: No Hx IC hemorrhage, IC neoplasm, AV malformation or aneurysm: Yes Active internal bleeding: No Blding diathesis(low plt ct, inc PTT,INR>1.7 or use of NOAC): No Symptoms suggest subarachnoid hemorrhage: Yes CT demonstrates multilobar infarct(>1/3 cerebral hemiphere): No Arterial puncture at noncompressible site in previous 7 days: No Blood glucose concentration less than 50mg/dL (2.7mmol/L): No - Relative Exclusion Criteria 3-4.5 hr Life expectancy <1 yr or severe co-morbid illness: No : No Patient/family refused: No Rapid improvement: No Stroke severity too mild: No Recent acute [place] (w/in previous 3 months): No Seizure at onset with postictal residual neuro impairments: No Major surgery or serious trauma w/in previous 14 days: No Recent GI or hemorrhage (w/in previous 21 days): No - Add'l Relative Exclusion 3-4.5 hr Age > 80: No Hx of both diabetes AND prior ischemic stroke: No Taking an oral anticoagulant regardless of INR: No NIHSS >25: No - Ineligibility reason(s) Reasons No tPA given: See reason(s) noted above (HEMORRHAGIC CVA) NIH Stroke Scale - Last Known Well Date/Time & Onset Date Last Known Well: 04/22/19 Time Last Known Well: 22:00 - Initial Evaluation Level of consciousness: Not alert, but arousable with minimal stimulation Ask patient the month and their age: Both incorrect Ask patient to open & close eyes; make fist and let go: Both incorrect Best gaze (horizontal eye movement): Normal Visual field testing: No visual field loss Facial paresis (Show teeth/raise eyebrows/close eyes tight): Normal symmetrical movement Motor Function: Left Arm: Drift Motor Function: Right Arm: Drift Motor Function: Left Leg: Drift Motor Function: Right Leg: Drift Limb Ataxia: No ataxia Sensory(Use pinprick test arms,legs,trunk,face/side to side): Normal Best language (Describe picture, name items, read sentences): Mute Dysarthria (read several words): Near unintelligible or unable to speak Extinction and Inattention: No abnormality - Total Score NIH Stroke Scale Score: 14 Past History - Past Medical History Allergies/Adverse Reactions: Allergies Allergy/AdvReac Type Severity Reaction Status Date / Time No Known Allergies Allergy Verified 04/23/19 09:46 Home Medications: Ambulatory Orders Aspirin 81 mg PO DAILY 10/30/18 Cholecalciferol (Vitamin D3) [Vitamin D3] 2,000 unit PO DAILY 10/30/18 Docusate Sodium [Colace Clear] 100 mg PO DAILY 10/30/18 Gabapentin 600 mg PO HS 10/30/18 Pramipexole Di-HCl [Mirapex] 0.25 mg PO HS 10/30/18 Latanoprost 0.005% Eye Drops [Xalatan 0.005% Eye Drops -] 1 drop OU HS 02/25/19 Metoprolol Tartrate 50 mg PO BID 02/25/19 Multivitamin,Therapeutic [Thera] 1 tab PO DAILY 02/25/19 Rosuvastatin Calcium 5 mg PO HS 02/25/19 Vit C/Dietary Supplement No.18 [Red Wine Extract Plus Capsule] 1 tab PO DAILY oxyCODONE HCL [Roxicodone -] 5 mg PO TID 02/25/19 Cardiac Disorders: Yes (mitral valve regurgitation) CVA: Yes (NO RESIDUAL WEAKNESS.) COPD: No Diabetes: Yes (pre diabetic) HTN: Yes Hypercholesterolemia: Yes - Surgical History Abdominal Surgery: Yes (exploratory lap?) Appendectomy: Yes Neurologic Surgery: Yes (brain annurysm) Orthopedic Surgery: Yes (L. Shoulder, R. Knee) - Immunization History Immunization Up to Date: Yes - Psycho Social/Smoking Cessation Hx Smoking Status: No Smoking History: Never smoked Have you smoked in the past 12 months: No Number of Cigarettes Smoked Daily: 0 Cigars Per Day: 0 Hx Alcohol Use: No Drug/Substance Use Hx: No Substance Use Type: None Hx Substance Use Treatment: No Review of Systems - Review of Systems Able to Perform ROS?: No (unable to obtain) *Physical Exam - Vital Signs Last Vital Signs Temp Pulse Resp BP Pulse Ox 86 18 169/84 98 04/23/19 09:44 04/23/19 09:44 04/23/19 09:44 04/23/19 09:44 04/23/19 10:06 GENERAL: The patient is awake, looks at examiner, no distress, does not follow commands ENT: Ears normal, nares patent, oropharynx clear without exudates. NECK: Normal range of motion, supple LUNGS: Breath sounds equal, clear to auscultation bilaterally. No wheezes, and no crackles. HEART:Regular rate and rhythm, normal S1 and S2 without murmur, rub or gallop. ABDOMEN: Soft, nontender, normoactive bowel sounds. EXTREMITIES: Normal range of motion, no edema. NEUROLOGICAL: PT IS AWAKE PT DOES NOT RESPOND VERBALLY TO QUESTIONING MOVES ALL EXTREMITIES IN RESPONSE TO PAIN EOMI, PERRLA SKIN: Warm, Dry, normal turgor, no rashes or lesions noted. 04/25/19 09:47 ED Treatment Course - RADIOLOGY Radiology Studies Ordered: Category Date Time Status HEAD CT (STROKE) [CT] Stat CT Scan 04/23/19 09:43 Completed CHEST X-RAY PORTABLE* [RAD] Stat Radiology 04/23/19 09:44 Ordered Medical Decision Making - Critical Care Time Total Critical Care Time (minutes): 120 Critical Care Statement: The care of this patient involved high complexity decision making to prevent further life threatening deterioration of the patient 's condition and/or to evaluate & treat vital organ system(s) failure or risk of failure. - Medical Decision Making 04/23/19 10:02 This patient was a code bird CT obtained immediately CT: Left anterior frontal acute/subacute hemorrhage with significant surrounding edema, mass-effect and shift of the midline structures towards the right side, approximately 5 mm. Acute intraventricular hemorrhage is also present with blood seen in the frontal horn of the left lateral ventricle, right third and layering in the occipital horn of the right lateral ventricle. Encephalomalacia/chronic infarct again seen in the right frontal lobe anteriorly. Call placed to [facility] They have auto accepted her to the emergency department Patient is blood pressure 153/100 EKG: Normal sinus rhythm, rate of 88 bpm, axis is normal, intervals are normal, LVH Case reviewed with NSGY fellow Requests Mannitol, Keppra, Nicardipine Call placed to patient's next of kin, voicemail left for Ct to call the ER Very difficult IV access Multiple attempts made Left hand IV placed - Keppra run, Mannitol hung Right AC IV obtainted - will give Nicardipine (BP 158/90) Clinical impession: Acute Hemorrhagic Intracranial Hemorrhage Discharge - Discharge Information Problems reviewed: Yes Clinical Impression/Diagnosis: Hemorrhagic cerebrovascular accident (CVA) Condition: Critical Disposition: TRANSFER ACUTE CARE/OTHER HOSP - Admission No - Follow up/Referral Referrals: Kalee Caceres MD [Primary Care Provider] - - Patient Discharge Instructions - Post Discharge Activity - Transfer to Acute Care Facility [facility] Transfer Comment: 04/23/19 10:[address] Umanzor
[2019-04-23 11:03] VITALS: BP 133/69; PULSE 88
--- NOTE | 2019-04-24 11:52 | EKG ---
Test Reason : Blood Pressure : / mmHG Vent. Rate : 088 BPM Atrial Rate : 088 BPM P-R Int : 182 ms QRS Dur : 086 ms QT Int : 378 ms P-R-T Axes : 068 063 051 degrees QTc Int : 457 ms POOR DATA QUALITY, INTERPRETATION MAY BE ADVERSELY AFFECTED NORMAL SINUS RHYTHM POSSIBLE LEFT ATRIAL ENLARGEMENT LEFT VENTRICULAR HYPERTROPHY ABNORMAL ECG WHEN COMPARED WITH ECG OF 30-OCT-2018 10:18, NO SIGNIFICANT CHANGE WAS FOUND Confirmed by JUAN CARLOS SOTO MD ([id number]) on 04/24/2019 11:52:13 AM Referred By: Confirmed By:JUAN CARLOS SOTO MD
== END 2019-04-23 10:57 | disposition short-term general hospital (02) ==
LOC: JER 09:39
DX: I62.9 Nontraumatic intracranial hemorrhage, unspecified (principal); I10 Essential (primary) hypertension; R73.03 Prediabetes; E78.00 Pure hypercholesterolemia, unspecified
CPT/HCPCS: 70450-TC; 93005; 93010; 99285-25

== ENCOUNTER 2020-07-08 14:36 | Emergency (ER) | payer OTHER ==
[2020-07-08 15:04] VITALS: BMI 30.4
[2020-07-08 18:39] VITALS: PULSE 86
[2020-07-08 22:10] VITALS: BP 122/79; TEMP 98.9
== END 2020-07-08 22:09 ==
LOC: JER 14:36
DX: R68.89 Other general symptoms and signs (principal); W06.XXXA Fall from bed, initial encounter
CPT/HCPCS: 70450-TC; 71045-TC-FY; 72125-TC; 72170-TC-FY; 93005; 93010; 99285-25

== ENCOUNTER 2020-07-18 15:18 | Emergency (ER) | payer OTHER ==
[2020-07-18 15:53] VITALS: TEMP 98.6; BMI 27.4
[2020-07-18 18:43] VITALS: BP 145/62; PULSE 77
== END 2020-07-18 18:43 ==
LOC: JER 15:18
DX: K94.23 Gastrostomy malfunction (principal)
CPT/HCPCS: 74019-TC-FY; 99283-25

== ENCOUNTER 2020-08-17 09:55 | Emergency (ER) | payer OTHER ==
[2020-08-17] MEDS ORDERED: ROCURONIUM BROMIDE 50 MG/5 ML VIAL IV ONE ×2 (10:08→10:31)
[2020-08-17] MEDS ORDERED: ETOMIDATE 40 MG/20 ML VIAL IVPUSH ONE (10:08)
[2020-08-17] MEDS ORDERED: LORazepam 2 MG/ML SDV VIAL IVPUSH ONE (10:09)
[2020-08-17] MEDS ORDERED: LACTATED RINGERS SOLUTION 1000 ML INFUS.BAG IV ONE (10:10)
[2020-08-17] MEDS ORDERED: RAPID SEQUENCE INTUBATION KIT NR ONE (10:10)
[2020-08-17] MEDS ORDERED: ROCURONIUM BROMIDE 100 MG/10 ML VIAL ONE (10:11)
[2020-08-17 10:28] VITALS: BMI 26.3
[2020-08-17] MEDS ORDERED: SODIUM CHLORIDE 1,000 ML IV STA (10:32)
[2020-08-17] MEDS ORDERED: MIDAZOLAM 100 MG/100 ML MG IVPB ONE (10:40)
[2020-08-17] MEDS ORDERED: MIDAZOLAM IN 0.9 % SOD.CHLORID 100 MG/100 ML PLAST..BAG IVPB SCH (10:45)
[2020-08-17 11:00] LABS: BASO % 0.3 % (0-2.0); CHOLESTEROL 109 mg/dL (50-200); HEMATOCRIT 36.8 % (32.4-45.2); LYMPH % 6.9 % (8-40); MCH 27.9 pg (25.7-33.7); MCHC 32.7 g/dl (32.0-36.0); MEAN CELL VOLUME 85.4 fl (80-96); MEAN PLT VOLUME 10.6 fl (7.5-11.1); MONO % 4.1 % (3.8-10.2); NEUT % 88.7 % (42.8-82.8); PLATELET COUNT 388 K/MM3 (134-434); RDW 15.5 % (11.6-15.6); WHITE BLOOD COUNT 13.5 K/mm3 (4.0-10.0)
[2020-08-17] MEDS ORDERED: FENTANYL NS IVPB 500 MCG/100 ML BAG IVPB SCH (11:00)
[2020-08-17 11:01] LABS: TRIGLYCERIDES 36 mg/dL (0-150)
[2020-08-17 11:02] LABS: LDL CHOLESTEROL (ONLY SJRH) 22 mg/dL (5-100)
[2020-08-17 11:03] LABS: HDL CHOLESTEROL 75 mg/dL (40-60)
[2020-08-17 11:06] LABS: INR 1.05 (0.83-1.09); PROTHROMBIN TIME (PATIENT) 12.9 SEC (9.7-13.0)
[2020-08-17 11:09] LABS: ACTIVATED PTT 38.1 SECONDS (25.2-36.5)
[2020-08-17 11:22] LABS: CHLORIDE 103 mmol/L (98-107); SODIUM 140 mmol/L (136-145)
[2020-08-17 11:24] LABS: ALBUMIN 3.4 g/dl (3.4-5.0)
[2020-08-17 11:25] LABS: ANION GAP 9 MMOL/L (8-16); BLOOD UREA NITROGEN 11.9 mg/dL (7-18); CO2 29 mmol/L (21-32); GLUCOSE,RANDOM 141 mg/dL (74-106)
[2020-08-17 11:27] LABS: SGPT/ALT 175 U/L (13-61)
[2020-08-17 11:28] LABS: CREATININE 0.6 mg/dL (0.55-1.3); SGOT/AST 50 U/L (15-37)
[2020-08-17 11:29] LABS: BILIRUBIN,TOTAL 0.6 mg/dL (0.2-1); TOT PROT 8.4 g/dl (6.4-8.2)
[2020-08-17 11:30] LABS: ALK PHOS 131 U/L (45-117)
[2020-08-17] MEDS ORDERED: NICARDIPINE 25 MG in DEXTROSE 5%-WATER - 240 ML IVPB SCH ×2 (11:45→12:05)
[2020-08-17] MEDS ORDERED: VANCOMYCIN 1 GM in D5W (PRE-DOCKED) 1,000 MG/250 ML IVPB ONE (11:55)
[2020-08-17] MEDS ORDERED: PIPERACILLIN/TAZOB 3.375 GM 3.375 GM in DEXTROSE 5%-WATER - 50 ML IVPB ONE (11:55)
[2020-08-17] MEDS ORDERED: VANCOMYCIN 1 GRAM (PRE-DOCKED) 1,000 MG/250 ML BAG IVPB ONE (12:09)
[2020-08-17] MEDS ORDERED: PIPERACILLIN/TAZOB 3.375 GM 3.375 GM/50 ML BAG IVPB ONE (12:09)
[2020-08-17] MEDS ORDERED: FENTANYL NS IVPB 500 MCG/100 ML BAG IVPB ONE (12:11)
[2020-08-17] MEDS ORDERED: levETIRAcetam 500 MG/5 ML INJECTION VIAL IVPB ONE ×2 (12:34→12:40)
[2020-08-17 12:58] VITALS: TEMP 97.4
[2020-08-17 13:08] LABS: EPI CELLS 13 /uL (0-25.1); HYALINE CASTS 3 /uL (0-3.1); PH,URINE 6.5 (5.0-8.0); URINE APPEARANCE CLEAR; URINE BACTERIA >9,000 /uL (0-1359); URINE BILIRUBIN NEGATIVE (NEGATIVE); URINE COLOR YELLOW; URINE GLUCOSE (UA) NEGATIVE (NEGATIVE); URINE KETONE NEGATIVE (NEGATIVE); URINE LEUK ESTERASE NEGATIVE (NEGATIVE); URINE NITRITE NEGATIVE (NEGATIVE); URINE PROTEIN 1+ (NEGATIVE); URINE RBC 23 /uL (0-23.9); URINE WBC 4 /uL (0-25.8)
[2020-08-17] MEDS ORDERED: PHENYLEPHRINE NS PREMIX 25,000 MCG/250 ML BAG CVP SCH (13:45)
[2020-08-17 14:19] VITALS: BP 129/65; PULSE 94
== END 2020-08-17 14:00 | disposition short-term general hospital (02) ==
LOC: JER 09:55
PROC: 3E033NZ Introduction of Analgesics, Hypnotics, Sedatives into Peripheral Vein, Percutaneous Approach (ICD-10-PCS; principal; 2020-08-17)
PROC: 3E033GC Introduction of Other Therapeutic Substance into Peripheral Vein, Percutaneous Approach (ICD-10-PCS; 2020-08-17)
PROC: 3E033NZ Introduction of Analgesics, Hypnotics, Sedatives into Peripheral Vein, Percutaneous Approach (ICD-10-PCS; 2020-08-17)
PROC: 3E033GC Introduction of Other Therapeutic Substance into Peripheral Vein, Percutaneous Approach (ICD-10-PCS; 2020-08-17)
PROC: 3E03329 Introduction of Other Anti-infective into Peripheral Vein, Percutaneous Approach (ICD-10-PCS; 2020-08-17)
PROC: 3E033GC Introduction of Other Therapeutic Substance into Peripheral Vein, Percutaneous Approach (ICD-10-PCS; 2020-08-17)
PROC: 3E033GC Introduction of Other Therapeutic Substance into Peripheral Vein, Percutaneous Approach (ICD-10-PCS; 2020-08-17)
PROC: 3E03329 Introduction of Other Anti-infective into Peripheral Vein, Percutaneous Approach (ICD-10-PCS; 2020-08-17)
PROC: 3E0337Z Introduction of Electrolytic and Water Balance Substance into Peripheral Vein, Percutaneous Approach (ICD-10-PCS; 2020-08-17)
DX: I63.9 Cerebral infarction, unspecified (principal); I62.9 Nontraumatic intracranial hemorrhage, unspecified; G40.89 Other seizures
CPT/HCPCS: 36415; 70450-TC; 71045-TC-FY; 71250-TC; 80053; 80061; 81003; 82550; 82962; 83605; 83721; 84484; 85025; 85610; 85730; 86850; 86900; 86901; 93005; 93010; 99291